=== PATIENT | female | born 1940 | race Caucasian/White ===

== ENCOUNTER → 2017-11-29 15:37 | Outpatient (CLI) | payer MEDICARE, OTHER, SELFPAY ==
--- NOTE | 2017-11-29 15:38 | CT_ITS ---
STUDY: CT CHEST WITH CONTRAST REASON FOR EXAM: Female, 77 years old. History of CLL. Enlarged lymph nodes. RADIATION DOSAGE (If Supplied By Facility): CTDIvol = ( 19.47 ) mGy, DLP = ( 2436.53 ) mGycm TECHNIQUE: Transaxial imaging was performed following intravenous administration of 100CC ml of Isovue 300 contrast material. Individualized dose optimization techniques were used for this CT. COMPARISON: None. FINDINGS: The lungs are normal. There is no demonstrated pleural abnormality. Normal heart and pericardium. There is bilateral thoracic inlet adenopathy. There is moderate bilateral axillary adenopathy. Largest lymph node of the right axilla measures 2.9 cm. Largest lymph node of the left axilla measures 2.8 cm. There is a 1.8 cm right paratracheal lymph node. There are a few relatively small lymph nodes in the left prevascular space. There is a 1.7 cm left cardiophrenic lymph node. Normal enhanced pulmonary arteries. Normal aorta arch and descending thoracic aorta. Normal osseous structures. CT/Chest WITH Contrast IMPRESSION: No acute cardiopulmonary disease. Adenopathy of the bilateral thoracic inlet, in both axilla, and mild mediastinal adenopathy. Electronically Signed: Javan Godoy MD at 23:26 EDT , Service support ,
--- NOTE | 2017-11-29 15:38 | CT_ITS ---
STUDY: CT ABDOMEN AND PELVIS WITH CONTRAST REASON FOR EXAM: Female, 77 years old. CLL. Adenopathy. RADIATION DOSAGE (If Supplied By Facility): CTDIvol = ( 19.47 ) mGy, DLP = ( 2436.53 ) mGycm TECHNIQUE: Transaxial images were obtained from the dome of the diaphragm to the symphysis pubis with oral contrast. 100CC ml of Isovue 300 contrast was administered. Sagittal and coronal images were reconstructed. Individualized dose optimization techniques were used for this CT. COMPARISON: None. FINDINGS: See separate report for CT of the chest. There is retrocrural adenopathy. There is extensive epigastric, gastrohepatic, and peripancreatic adenopathy. There is moderate to marked bilateral retroperitoneal adenopathy. Most of the enlarged lymph nodes maintain a relatively individual contour. The largest is adjacent to the right common iliac artery and measures 4.3 cm. There is moderate mesenteric adenopathy. There is extensive bilateral pelvic sidewall adenopathy. Largest lymph node is along the right pelvic sidewall and measures 4.4 cm. There is moderate bilateral inguinal adenopathy. Normal liver. The gallbladder is contracted. There is moderate splenomegaly. Normal pancreas. Normal bilateral adrenal glands. Normal right kidney. Normal left kidney. Normal visualized stomach. Normal small intestine. Normal colon. The appendix is visualized and appears normal. There is diffuse atherosclerotic calcification of the abdominal aorta, without a demonstrated aneurysm. Normal inferior vena cava. Normal retroperitoneum. Normal urinary bladder. There is atrophy of the uterus. Normal abdominal wall. There are diffuse degenerative changes of the visualized lumbar spine. CT/Abdomen/Pelvis WITH Contrast IMPRESSION: Moderate to severe retroperitoneal, mesenteric, epigastric, pelvic and inguinal adenopathy consistent with the stated history of CLL. Splenomegaly. No acute abnormalities. Electronically Signed: Javan Godoy MD at 23:40 EDT , Service support ,
--- NOTE | 2017-11-29 15:39 | CT_ITS ---
STUDY: CT SOFT TISSUE NECK WITH CONTRAST REASON FOR EXAM: Female, 77 years old. Enlarged lymph nodes. History of CLL. RADIATION DOSAGE (If Supplied By Facility): CTDIvol = ( 19.47 ) mGy, DLP = ( 2436.53 ) mGycm TECHNIQUE: The patient was scanned in a multi-detector CT scanner. High resolution transaxial imaging was performed following intravenous administration of 100CC ml of Isovue 300 contrast material. Sagittal and coronal images were reconstructed. Individualized dose optimization techniques were used for this CT. COMPARISON: None. FINDINGS: Extensive bilateral cervical adenopathy is seen in all lymph node regions consistent with the history of CLL. Findings are especially prominent in both posterior cervical triangles and are very slightly worse on the right when compared to the left. Most of the lymph nodes are individual rather than confluent although a few are matted especially in the posterior right cervical triangle. Largest lymph node is on the right, anterior to the right carotid sheath, and has a greatest dimension of 3.5 cm. Normal parotid glands. Normal bilateral sublingual and submandibular glands and spaces. Normal visualized nasopharynx. Normal retropharyngeal space. Normal perivertebral space. Both pharyngeal tonsils appear large. The visualized tongue, tongue base and oropharynx are normal. There is no abnormal contrast enhancement. Normal epiglottis, bilateral vallecula and hypopharynx. The pre-epiglottic and paraglottic adipose spaces are normal. Normal visualized bilateral piriform sinuses, aryepiglottic folds, vocal cords, and arytenoid-cricoid articulations. Normal subglottic trachea. Normal bilateral lobes of the thyroid gland. Normal visualized pulmonary apices. Bilateral thoracic inlet adenopathy is seen. There is mild mucosal inflammatory disease of the paranasal sinuses consistent with chronic sinusitis. There is multilevel degenerative changes of the cervical spine. CT/Soft Tissue Neck WITH Contrast IMPRESSION: Very extensive bilateral adenopathy in all cervical regions consistent with the history of CLL. Electronically Signed: Javan Godoy MD at 23:20 EDT , Service support ,
[2017-11-29 16:01] LABS: CREATININE FINGERSTICK 0.9 mg/dL (0.55-1.02)
== END ==
PROVIDERS: Family Provider Internal Medicine; PCP Internal Medicine; Visit Provider Internal Medicine Medical Oncology
DX: C91.10 Chronic lymphocytic leukemia of B-cell type not having achieved remission (principal); R59.0 Localized enlarged lymph nodes
CPT/HCPCS: 70491; 71260; 74177; Q9967

== ENCOUNTER → 2017-12-06 08:21 | Outpatient (CLI) | payer MEDICARE, OTHER, SELFPAY ==
--- NOTE | 2017-12-06 09:00 | PET_ITS ---
EXAMINATION: FDG PET CT INDICATIONS: A 77-year-old female with history of chronic lymphocytic leukemia presenting for restaging examination. COMPARISON EXAMINATION: CT of the neck report dated 11/29/17, CT of the chest report dated 11/29/17, CT of the abdomen and pelvis report dated 11/29/17. INDEX LESION SIZE SUV INTERPRETATION Right mid pelvic mesentery, proximal ascending colon nodular 19.1 mm x 19.9 mm (frame 71) 11.[address] of the abdomen and pelvis with intravenous contrast or direct visualization secondary to the quantitative degree of uptake Bilateral axilla, right-left lateral neck 26.9 mm largest (frame 190) 2.4 (max) Fulfills borderline quantitative criteria for viable neoplasm Abdominal retroperitoneum, bilateral hemipelvis, right-left inguinal regions 1.9 Quantitative criteria for viable neoplasm are not fulfilled TECHNIQUE: Following the intravenous administration of 14.8 mCi of F-18 deoxyglucose via the left wrist, multiplanar image acquisitions of the neck, chest, abdomen and pelvis to level of mid thigh, obtained at one hour post radiopharmaceutical administration contemporaneously interpreted with the current CT of the neck, chest, abdomen and pelvis to level of mid thigh, dated 12/06/[address] of the neck report dated 11/29/17, CT of the chest report dated 11/29/17, CT of the abdomen and pelvis report dated 11/29/17 reveal: SERUM GLUCOSE LEVEL: 85 mg/dl. HEIGHT: 64 inches. WEIGHT: 162 lbs. FINDINGS: 1. A distinct intense focus of increased glucose metabolism is manifest in the right upper pelvic mesentery contiguous to the proximal ascending colon, nodular in presentation generating a calculated maximum standard uptake value of 11.1. The maximal axial diameter of the corresponding metabolic abnormality on review of CT of the pelvis dated 12/06/17 is 19.1 mm (transverse) x 19.9 mm (AP). 2. Increased glucose concentration is defined in the bilateral-lateral neck to include levels II B-III, right and left axillary regions generating a calculated maximum standard uptake value of 2.4. The maximal axial diameter of the largest individual hypermetabolic soft tissue density is 26.9 mm (transverse). Multiple soft tissue densities demonstrated fatty hilus formation. 3. Increased glucose metabolism is subtly defined in the mid-lower abdominal retroperitoneum, bilateral hemipelvis and right-left inguinal regions generating a calculated maximum standard uptake value of 1.9. 4. Normal physiologic distribution of the radiopharmaceutical is apparent in the hepatic (3.3) and splenic parenchyma, both renal units, bladder and visualized intestinal tract. There is uniform distribution of the radiopharmaceutical concentration compared on the cerebellar hemispheres and cerebral cortex. Diffuse intestinal tract activity is noted throughout all four quadrants of the abdominal-pelvic retroperitoneum, mesentery consistent with normal physiologic distribution of the radiopharmaceutical. Homogeneous radiopharmaceutical concentration is apparent in the visualized appendicular-axial skeletal structures. The spleen demonstrates a maximal vertical dimension of 12.1 cm (nml < 12.5 cm). Prominent glucose concentration is observed in the descending thoracic, as well as abdominal aorta. Pertinent CT findings are as follows. CHEST: Atherosclerotic calcification is defined in the thoracic aorta without evidence of dilatation, aneurysm formation. Coronary arterial calcification is observed. There are no parenchymal densities-nodules in the right-left hemithorax demonstrating discernible increased glucose metabolism. Multiple soft tissue lymph nodes are demonstrated in the right-left axilla, bilateral-lateral neck demonstrating mild increased glucose concentration as previously described. Fatty hilus formation is noted in multiple corresponding soft tissue densities. ABDOMEN AND PELVIS: Atherosclerotic calcification is defined in the abdominal aorta without evidence of dilatation, aneurysm formation. Pelvic arterial calcification is observed. Abdominal retroperitoneal, bilateral hemipelvic and right-left inguinal soft tissue densities demonstrate mild non-quantitatively significant increased glucose metabolism as previously described SKELETAL: Degenerative changes defined in the cervical, thoracic and lumbar spine demonstrate no evidence for glucose hypermetabolism. PET/PET/CT Tumor Base -Thigh Subs IMPRESSION: 1. Increased glucose metabolism manifest in the right mid pelvic mesentery contiguous to the proximal ascending colon, nodular in presentation demonstrated no corresponding anatomic changes on review of CT of the abdomen and pelvis report dated 11/29/17. Repeat CT of the abdomen and pelvis with oral and intravenous contrast or direct visualization may be indicated secondary to the quantitative degree of uptake and nodular presentation. (Autumn et al, Journal of Nuclear Medicine, 30:F371, 2003). 2. Facilitated glucose concentration noted in the right-left lateral neck, bilateral axillary regions fulfills borderline quantitative criteria for viable neoplasm with single-point technique. 3. Enhanced glucose concentration defined in the abdominal retroperitoneum, bilateral hemipelvis and inguinal regions does not fulfill quantitative criteria for viable neoplasm. 4. Prominent glucose concentration observed in the descending thoracic, as well as abdominal aorta is commensurate with activated leukocytes associated with atherosclerotic plaque formation. (Krunal voss al, Clinical Nuclear Medicine 29:93, 2004). 5. Homogenous increased glucose metabolism manifest in the visualized appendicular-axial skeletal structures, in the absence of chemotherapeutic intervention and marrow stimulation, is consistent with the pattern associated with hyperplasia of the hematopoietic marrow. (Glenn, AJR 180:669, 2003). Electronic Signature Iain Bhandari D.O. Electronically Signed: Iain Bhandari DO at 23:52 EDT Tel , Service support ,
== END ==
PROVIDERS: Family Provider Internal Medicine; PCP Internal Medicine; Visit Provider Internal Medicine Medical Oncology
DX: C91.10 Chronic lymphocytic leukemia of B-cell type not having achieved remission (principal); R59.1 Generalized enlarged lymph nodes
CPT/HCPCS: 78815; A9552; A4216

== ENCOUNTER 2018-02-08 04:18 | Emergency (ER) | payer MEDICARE, OTHER, SELFPAY ==
[2018-02-08 04:19] VITALS: BP 177/67; PULSE 85; RESP 16; TEMP 37.1; O2SAT 95; BMI 28.6
--- NOTE | 2018-02-08 04:28 | RAD_ITS ---
STUDY: X-RAY RIGHT FOOT, FIRST TOE REASON FOR EXAM: Female, 77 years old. Trauma TECHNIQUE: 3 view(s) of the toe were obtained. COMPARISON: None. FINDINGS: Normal visualized metatarsus. Normal metatarsophalangeal (M.T.P) joint. Normal interphalangeal joints. Normal phalanges and interphalangeal joints. There is soft tissue swelling of the first digit. RAD/Toe(s) Min 2 Views IMPRESSION: There is NO fracture or malalignment. There is soft tissue swelling of the first digit. Electronically Signed: Franky Singh MD at 5:16 EDT , Service support ,
--- NOTE | 2018-02-08 04:33 | ED.DCSUM_ITS ---
- ER Visit Summary Date of Service: 02/08/18 Chief Complaint: Right great toe pain and swelling. History of Present Illness: The patient is a 77 F history of CLL. On chemotherapy. He states on Wednesday she noticed swelling and some discomfort in her right great toe. There is now bruising. She denies any fall or trauma. She is not on any blood thinners. Physical Examination: Well appearing older female. Vital signs are stable afebrile. H EENT exam is traumatic. Neck nontender. Lungs clear to auscultation bilaterally. Heart regular rate and rhythm no murmur. Abdomen soft nontender. She is moving all 4 extremities. They are neurovascularly intact. Her right great toenail is irregular. It appears to have had some trauma and is knocked out of place. There is a fungal infection of the nail and underneath. There is bruising of the proximal end of the nail and skin. And mild swelling and tenderness. No gross bony deformity. Other toes and foot is nontender and unremarkable. Normal DP pulse. Foot is neurovascular intact. Test Results: Right great toe x-ray chronic changes no acute fracture. Emergency Department Course and Treatment: Procedure note: Let was applied to the MTP of the right great toe. Digital block was performed using lidocaine. Once proper anesthetic was obtained a right great toenail was removed. It was very irregular and had significant fungal infection. Below the nail as soon there been a lot of microtrauma she had a large dime to quarter sized blood blister with tissue deficit. Area will be cleaned and dressed. She will be started on antibiotics for an ingrown toenail with infection. Treatment Plan: Keflex 500 4 times daily for 1 week. Call and follow-up with Dr. Davison of podiatry as soon as possible. Disposition: Discharge Impression: Acute right great toenail ingrown and infected Right great toe digital block by ER Right great toenail removed by ER History of CLL on chemotherapy This note was generated with [employer] dictation software. It may contain incorrect words, spelling, and punctuation that were not noted in review of the chart prior to signing ED Disposition - Plan for ED Patient: Chief Complaint: Wound Referrals: Gail Lopes MD [Primary Care Provider] -
[2018-02-08] MEDS: Lidocaine/Epi/Tetracaine 50 ML 1 APPLIC TOPICAL (05:15)
--- NOTE | 2018-02-08 05:42 | ED.DEP ---
ED Disposition - Plan for ED Patient: Disposition: Home or Assisted Living Chief Complaint: Wound Instructions: ED Ingrown Toenail Excised Prescriptions: Cephalexin [Keflex] 500 mg PO Q6 #30 cap Referrals: Gail Lopes MD [Primary Care Provider] - As Needed Davin Davison DPM [STAFF PHYSICIAN] - As soon as possible Additional Instructions: Keep great toe clean. Warm soaks or Epsom salts. Apply antibiotic the wound. Ice and elevate to decrease swelling. Keflex 1 pill 4 times a day till gone antibiotic for ingrown infection. Call and follow-up with Dr. Jose Alejandro Davison a local justice of the peace for further care of your right great toe.
--- NOTE | 2018-02-08 05:45 | DCINST.ED_ITS ---
ED Disposition - Plan for ED Patient: Disposition: Home or Assisted Living Chief Complaint: Wound Instructions: ED Ingrown Toenail Excised Prescriptions: Cephalexin [Keflex] 500 mg PO Q6 #30 cap Referrals: Gail Lopes MD [Primary Care Provider] - As Needed Davin Davison DPM [STAFF PHYSICIAN] - As soon as possible Additional Instructions: Keep great toe clean. Warm soaks or Epsom salts. Apply antibiotic the wound. Ice and elevate to decrease swelling. Keflex 1 pill 4 times a day till gone antibiotic for ingrown infection. Call and follow-up with Dr. Jose Alejandro Davison a local ward helper for further care of your right great toe.
[2018-02-08 05:59] VITALS: BP 155/75; PULSE 71; RESP 16; O2SAT 95
== END 2018-02-08 06:02 | disposition home or self-care (01) ==
PROVIDERS: Emergency Provider Emergency Medicine; Family Provider Internal Medicine; PCP Internal Medicine
DX: L60.0 Ingrowing nail (principal); C91.10 Chronic lymphocytic leukemia of B-cell type not having achieved remission; B35.1 Tinea unguium; Z79.899 Other long term (current) drug therapy
CPT/HCPCS: 11750; 73660; 99283

== ENCOUNTER 2019-09-13 18:56 | Emergency (ER) | payer MEDICARE, OTHER, SELFPAY ==
[2019-09-13 18:56] VITALS: BP 180/84; PULSE 84; RESP 16; TEMP 36.5; O2SAT 97; BMI 29.2
--- NOTE | 2019-09-13 19:13 | CT_ITS ---
STUDY: CT BRAIN WITHOUT CONTRAST REASON FOR EXAM: Female, 78 years old. HTN AND NOT FEELING WELL SINCE 10AM, TINGLING OVER FACE AND BOTH ARMS, HX CLL, BASAL CELL CA, SINUS SX RADIATION DOSAGE (If Supplied By Facility): CTDIvol = ( 44.99 ) mGy, DLP = ( 796.11 ) mGycm TECHNIQUE: Transaxial CT imaging of the brain was performed without administration of intravenous contrast material. Individualized dose optimization techniques were used for this CT. COMPARISON: No relevant priors. FINDINGS: Normal soft tissue structures. Normal calvarium. There is mild cerebral atrophy with widening of the extra-axial spaces and ventricular dilatation. There are areas of decreased attenuation within the white matter tracts of the supratentorial brain, consistent with microvascular disease changes. Normal basal ganglia and thalami. Normal brainstem. There is mild cerebellar atrophy. There is no intracranial hemorrhage. There are no findings of an acute ischemic infarction. Normal visualized paranasal sinuses. CT/Brain/Head without Contrast IMPRESSION: Chronic involutional changes of the brain. Electronically Signed: Luke Bang DO at 20:02 EST Tel , Service support ,
--- NOTE | 2019-09-13 19:14 | EKG12_ITS ---
Test Reason : GEN ILL Blood Pressure : / mmHG Vent. Rate : 081 BPM Atrial Rate : 081 BPM P-R Int : 164 ms QRS Dur : 086 ms QT Int : 366 ms P-R-T Axes : 050 038 032 degrees QTc Int : 425 ms Normal sinus rhythm Nonspecific ST abnormality Abnormal ECG Confirmed by EZRA SALAS, GEORGE ([id number]), sound editor ANDREWS ANN ([id number]) on 09/18/2019 10:34:26 AM Referred By: VIJI Confirmed By:BE MUNGUIA MD
--- NOTE | 2019-09-13 19:17 | ED.DCSUM_ITS ---
- ER Visit Summary Date of Service: 09/13/19 Chief Complaint: Hypertension and paresthesias History of Present Illness: The patient is a 78 F [place] with elevated blood pressure and facial paresthesias that began today. Patient states she feels like she has tingling over her face and both arms. Patient states this has been constant since this morning. Patient states it has been waxing and waning throughout the day. Patient denies any chest pain. Patient denies any shortness of breath. Patient denies any cough. Patient denies any fevers or chills. Patient denies any visual changes or headache. Patient has a history of CLL and is on a medication that may increase her blood pressure. Patient s thee she has been on this for approximately a year and a half. Physical Examination: Vital signs are stable except for an elevated blood pressure of 180/84. Patient is afebrile. Patient is in no acute distress. Oral mucosa is pink and moist. Neck is supple. Trachea is midline. There is no JVD noted. Heart was regular rate and rhythm. Lungs are clear and equal bilaterally. Abdomen is soft. Bowel sounds are normal. There is no tenderness. There is no rebound or guarding noted. Skin is warm dry. Cranial nerves II through XII are intact. There are no focal motor or sensory deficits noted. Extremities are intact. There is no calf tenderness or edema. Test Results: EKG shows a normal sinus rhythm with a rate of 81. There are no acute ST or T wave changes. This was unchanged compared to previous EKG dated 07/14/2016. CBC shows a leukocytosis of 44.5. This is consistent with prior results. Basic metabolic profile was essentially within normal limits with a slightly elevated BUN of 22 and a slightly elevated creatinine of 1.16. Urinalysis was within normal limits. Troponin was normal. PA and lateral chest x-ray was obtained. There is no acute cardiopulmonary process. CT scan of the brain was obtained. There is no acute intracranial abnormality. These were interpreted by the radiologist and reviewed by myself. Emergency Department Course and Treatment: Patient was feeling better on reevaluation. Patient's blood pressure improved to 154/73. Patient was still having some tingling in her face but it was improving. Patient was instructed to follow-up with her primary care physician in 3 to 5 days for further management of her blood pressure. Patient was instructed to keep a log of her blood pressures. Patient understood and was agreeable with the plan. All questions were answered. Disposition: Discharge home Impression: 1. Hypertension This note was generated with [employer] dictation software. It may contain incorrect words, spelling, and punctuation that were not noted in review of the chart prior to signing ED Disposition - Plan for ED Patient: Disposition: Home or Assisted Living Diagnosis: Hypertension Instructions: HYPERTENSION, Established, Out of Control Referrals: Gail Lopes MD [Primary Care Provider] - 3-5 Days
[2019-09-13 19:23] VITALS: BP 154/73; PULSE 75; RESP 14; O2SAT 96
[2019-09-13 19:28] LABS: Absolute Lymphocyte Count 37.65 X10^3/uL (0.83-4.51); Absolute Neutrophil Count 5.7 X10^3/uL (2.0-7.7); Basophil# 0.05 X10^3/uL; Basophil% 0.1 % (0-1); Eosinophil# 0.14 X10^3/uL; Eosinophils% 0.3 % (0-5); Hematocrit 42.4 % (37-47); Hemoglobin 13.2 g/dL (12.0-15.0); Lymphocyte # 37.65 X10^3/ul (4.0); Lymphocyte % 84.7 % (19-41); Mean Corp Hgb Conc 31.1 g/dL (32-36); Mean Corpuscular Hgb 28.9 pg (27.0-32.0); Mean Platelet Vol. 12.8 fl (6.2-12.0); Monocyte# 0.87 X10^3/uL; NRBC Flagged by Analyzer 0 % (0-5); Neutrophil # 5.66 X10^3/uL (2.7-7.7); Neutrophil % 12.7 % (47-70); POSITIVE COUNT YES; POSITIVE DIFFERENTIAL YES; POSITIVE MORPHOLOGY YES; Platelet Count 176 K/mm3 (150-450); RBC Distribution Width CV 15.1 % (11.6-14.6); RBC Distribution Width SD 51.4 fl (35.1-43.9); Red Blood Count 4.56 M/mm3 (4.2-5.4); White Blood Count 44.5 K/mm3 (4.4-11.0)
[2019-09-13 19:37] LABS: Differential Indicated SCAN CRITERIA MET
[2019-09-13 19:37] LABS: Bacteria 0 SEEN /hpf (None Seen); Mucous, Urine 0 SEEN /hpf (<or=2+); Squamous Epithelial Cells - UA 0 SEEN /hpf (5-10); White Blood Cells 0 SEEN /hpf (0-5)
[2019-09-13 19:38] LABS: Color, Urine Straw (Yellow); Glucose, Dipstick Normal (Normal); Ketone-Dipstick Negative (Negative); Leukocyte Esterase-Dipstick Negative /ul (Negative); Nitrite-Dipstick Negative (Negative); Occult Blood-Urine 150 /ul (Negative); Protein-Dipstick Negative (Negative); Urine Bilirubin Dipstick Negative (Negative); Urine Clarity Clear (Clear); Urine Urobilinogen Normal (Normal)
--- NOTE | 2019-09-13 19:38 | RAD_ITS ---
STUDY: X-RAY CHEST REASON FOR EXAM: Female, 78 years old. hypertension TECHNIQUE: PA and lateral views of the chest. COMPARISON: 07/13/16 FINDINGS: The lungs are clear and expanded. There is no demonstrated pleural abnormality. Normal size heart. Normal mediastinum and surjit. Normal visualized pulmonary arteries. Normal visualized aortic arch and descending thoracic aorta. Normal visualized thoracic spine. Normal visualized ribs, clavicles, and shoulders. There is no demonstrated abnormality of the visualized soft tissue structures of the upper abdomen. RAD/Chest PA and Lateral IMPRESSION: Normal x-ray examination of the chest. Electronically Signed: Luke Bang DO at 20:03 EST Tel , Service support ,
[2019-09-13 19:41] LABS: ALB/GLOB Ratio 1.7 RATIO (0.9-2.4); AST(SGOT) 22 U/L (15-37); Alanine Aminotransfer ALT/SGPT 31 U/L (13-56); Alkaline Phosphatase 101 U/L (45-117); Anion Gap 3 (5-15); BUN 22 mg/dL (7-18); Calcium,Total 9.2 mg/dL (8.5-10.1); Chloride 109 mmol/L (98-107); Creatinine, Serum 1.16 mg/dL (0.55-1.02); EST Glomerular Filtration Rate 48 mL/min (>60); Est Glom Filt Rate - Afr Amer 58 mL/min (>60); Estimated Creatinine Clearance 35.63 ml/min; Globulin 2.4 g/dL (2.2-4.2); Glucose 106 mg/dL (74-106); Protein, Total 6.4 g/dL (6.4-8.2); Sodium Level 141 mmol/L (136-145)
[2019-09-13 19:44] LABS: Red Blood Cells-Urine 0-5 SEEN /hpf (0-5)
[2019-09-13 20:14] LABS: Differential Comment SCANNED; Platelet Estimate ADEQUATE (ADEQ); Red Cell Morphology NORM C+C NORMAL (NORM C&C); Smudge Cells 1+
[2019-09-13 21:10] VITALS: BP 157/73; BP 157/79; PULSE 75; RESP 14; O2SAT 97; O2SAT 98
[2019-09-14 11:47] LABS: Pathologist Review Reviewed
== END 2019-09-13 21:14 | disposition home or self-care (01) ==
PROVIDERS: Emergency Provider Emergency Medicine; PCP Internal Medicine
DX: R20.2 Paresthesia of skin (principal); I10 Essential (primary) hypertension; C91.10 Chronic lymphocytic leukemia of B-cell type not having achieved remission; Z79.899 Other long term (current) drug therapy
CPT/HCPCS: 70450; 71046; 80053; 81001; 84484; 85025; 93005; 99284

== ENCOUNTER 2020-02-28 09:33 | Emergency (ER) | payer MEDICARE, OTHER, SELFPAY ==
[2020-01-24 14:26] VITALS: BMI 28.5
[2020-02-28 09:36] VITALS: BP 157/85; PULSE 81; RESP 18; TEMP 36.6; O2SAT 98; BMI 28.3
--- NOTE | 2020-02-28 09:45 | EKG12_ITS ---
Test Reason : ABDOMINAL PAIN Blood Pressure : / mmHG Vent. Rate : 075 BPM Atrial Rate : 075 BPM P-R Int : 158 ms QRS Dur : 090 ms QT Int : 378 ms P-R-T Axes : 062 047 039 degrees QTc Int : 422 ms Normal sinus rhythm Normal ECG Confirmed by BRENT BARBA ([id number]), development editor ANDREWS ANN ([id number]) on 03/04/2020 11:51:31 AM Referred By: Confirmed By:BRENT BARBA
--- NOTE | 2020-02-28 09:49 | ED.VISSUMM ---
- ER Visit Summary Date of Service: 02/28/20 Chief Complaint: Abdominal pain History of Present Illness: The patient is a 79 F presenting with abdominal pain. Patient states this started this morning after drinking coffee. She felt well yesterday. She complains of epigastric abdominal pain. She denies nausea, vomiting. Denies diarrhea or constipation. Denies urinary complaints. Denies fever. Denies chest pain or shortness of breath. No sick contacts. Physical Examination: Vitals are stable. Patient is afebrile. Alert no acute distress. HEENT exam is unremarkable. Neck is supple. Lungs are clear and equal bilaterally. Heart is regular rate and rhythm. Abdomen is soft epigastric tenderness with no guarding or rebound Extremities are unremarkable. Skin is warm and dry. No focal neurologic deficit. Remainder of exam is unremarkable. Emergency Department Course and Treatment: Patient was given a GI cocktail. EKG is sinus rhythm rate of 75 with no acute ischemic changes. CBC shows a white count of 45.6. She has a history of CLL and this is her baseline. Chemistries show BUN 26, creatinine 1.09. Total bili 1.2, AST 72. Lipase is normal. Troponin is negative. Urinalysis shows 10-25 white blood cells, 5-10 red blood cells. Urine culture was sent. Right upper quadrant ultrasound shows no suspicious sonographic findings, simple right renal cyst needs no radiographic follow up. Patient feels improved on reevaluation. She was given crackers. She states her pain then returned. She is requesting additional GI cocktail. This was ordered. CT abdomen pelvis was ordered and shows since the previous study, there has been nonspecific intra and extrahepatic biliary dilatation. No demonstrated stones are noted, no CT evidence of acute cholecystitis. Findings suggest the possibility of a stricture or choledochal stone that is not visualized. Small amount of free fluid around the periphery of the spleen. Stable bilateral renal cysts, no specific follow-up needed. Scattered borderline enlarged mesenteric and retroperitoneal lymph nodes, subcentimeter pelvic lymph nodes have decreased in size since the previous study. Uterus is still present, the endometrium cannot be accurately evaluated with CT. Degenerative bony changes. Discussed with Dr. Krishnan and hospitalist. Recommend MRCP. This was ordered and is pending at this time. Patient is resting comfortably on reevaluation. Disposition will be pending MRCP results Disposition: pending Impression: Abdominal pain This note was generated with Dragon dictation software. It may contain incorrect words, spelling, and punctuation that were not noted in review of the chart prior to signing ED Disposition - Plan for ED Patient: Referrals: Gail Lopes MD [Primary Care Provider] -
[2020-02-28 10:07] LABS: Absolute Lymphocyte Count 36.44 X10^3/uL (0.83-4.51); Absolute Neutrophil Count 7.9 X10^3/uL (2.0-7.7); Basophil# 0.06 X10^3/uL; Basophil% 0.1 % (0-1); Eosinophil# 0.11 X10^3/uL; Eosinophils% 0.2 % (0-5); Hematocrit 40.1 % (37-47); Hemoglobin 12.6 g/dL (12.0-15.0); Lymphocyte # 36.44 X10^3/ul (4.0); Lymphocyte % 79.9 % (19-41); Mean Corp Hgb Conc 31.4 g/dL (32-36); Mean Corpuscular Hgb 29.8 pg (27.0-32.0); Mean Corpuscular Volume 94.8 fL (81-99); Mean Platelet Vol. 12.5 fl (6.2-12.0); Monocyte# 1.01 X10^3/uL; Monocyte% 2.2 % (0-10); NRBC Flagged by Analyzer 0 % (0-5); Neutrophil # 7.87 X10^3/uL (2.7-7.7); Neutrophil % 17.3 % (47-70); POSITIVE COUNT YES; POSITIVE DIFFERENTIAL YES; POSITIVE MORPHOLOGY YES; Platelet Count 178 K/mm3 (150-450); RBC Distribution Width CV 14.9 % (11.6-14.6); RBC Distribution Width SD 51.8 fl (35.1-43.9); Red Blood Count 4.23 M/mm3 (4.2-5.4); White Blood Count 45.6 K/mm3 (4.4-11.0)
[2020-02-28] MEDS: Mag Hydrox/Al Hydrox/Simeth 30 ML UDC PO ×2 (10:14→13:32)
[2020-02-28] MEDS: 0.9% Normal Saline 1,000 ML 150 ML IV (10:14)
[2020-02-28 10:19] LABS: Mucous, Urine 0 SEEN /hpf (<or=2+)
[2020-02-28 10:20] LABS: Color, Urine Yellow (Yellow); Glucose, Dipstick Normal (Normal); Ketone-Dipstick Negative (Negative); Leukocyte Esterase-Dipstick 100 /ul (Negative); Nitrite-Dipstick Negative (Negative); Occult Blood-Urine 250 /ul (Negative); Protein-Dipstick 15 mg/dl (Negative); Urine Bilirubin Dipstick Negative (Negative); Urine Clarity Sl. Cloudy (Clear); Urine Urobilinogen Normal (Normal)
[2020-02-28 10:23] LABS: ALB/GLOB Ratio 1.6 RATIO (0.9-2.4); AST(SGOT) 72 U/L (15-37); Alanine Aminotransfer ALT/SGPT 44 U/L (13-56); Albumin, Serum 3.7 g/dL (3.2-5.0); Alkaline Phosphatase 102 U/L (45-117); Anion Gap 1 (5-15); BUN 26 mg/dL (7-18); BUN/Creat Ratio 23.9 RATIO (10-20); Calcium,Total 8.6 mg/dL (8.5-10.1); Chloride 106 mmol/L (98-107); Creatinine, Serum 1.09 mg/dL (0.55-1.02); EST Glomerular Filtration Rate 52 mL/min (>60); Est Glom Filt Rate - Afr Amer 63 mL/min (>60); Estimated Creatinine Clearance 37.32 ml/min; Globulin 2.3 g/dL (2.2-4.2); Glucose 91 mg/dL (74-106); Lipase 137 U/L (73-393); Sodium Level 138 mmol/L (136-145)
[2020-02-28 10:29] LABS: Squamous Epithelial Cells - UA 0-5 SEEN /hpf (5-10); White Blood Cells 10-25 SEEN /hpf (0-5)
[2020-02-28 10:30] LABS: Bacteria RARE /hpf (None Seen); Red Blood Cells-Urine 5-10 SEEN /hpf (0-5)
--- NOTE | 2020-02-28 10:31 | US_ITS ---
STUDY: ABDOMINAL ULTRASOUND - RIGHT UPPER QUADRANT REASON FOR VISIT: Female, 79 years old Abd PAIN TECHNIQUE: Ultrasound evaluation of the right upper quadrant was performed with real-time and static marshall-scale imaging. TECHNICAL QUALITY: Adequate. COMPARISON: None. FINDINGS: Liver: The liver measures 16 cm. There is normal echogenicity of the liver. The bile ducts are within normal limits. There is hepatic color flow. The direction of portal flow is hepatopetal. There is no demonstrated mass lesion. Gallbladder: Normal distended gallbladder. The gallbladder wall measures 2 mm. There is a negative sonographic Hernandez''s sign. There is no pericholecystic fluid. There are no gallstones. Common Bile Duct (C.B.D.): The common bile duct measures 5 mm. Pancreas: Normal size of the head, body and tail of the pancreas. There is normal echogenicity of the pancreas. There is no demonstrated pancreatic mass or cyst. Right Kidney: Normal size of the right kidney. The right kidney measures 10.2 x 4.6 x 3.8 cm. Normal renal cortex. The right cortex measures 1.3 cm. There is a simple 1.1 cm cyst. There is no right hydronephrosis. US/Gallbladder IMPRESSION: No suspicious sonographic findings, simple right renal cyst needs no radiographic follow up Electronically Signed: Fausto Lucero MD at 11:29 EDT , Service support ,
[2020-02-28 10:32] LABS: Differential Indicated SCAN CRITERIA MET
[2020-02-28 10:38] LABS: Differential Comment SCANNED
--- NOTE | 2020-02-28 12:38 | CT_ITS ---
STUDY: CT ABDOMEN AND PELVIS WITHOUT CONTRAST REASON FOR EXAM: Female, 79 years old. ABD PAIN THIS AM. Hx of CLL and basal cell cancer. HTN-rx controlled. RADIATION DOSAGE (If Supplied By Facility): CTDIvol = ( 19.00 ) mGy, DLP = ( 1755.46 ) mGycm TECHNIQUE: Transaxial images were obtained from the dome of the diaphragm to the symphysis pubis without oral contrast, and without intravenous contrast. Sagittal and coronal images were reconstructed. 3-D images were reconstructed. Individualized dose optimization techniques were used for this CT. COMPARISON: 11/29/2017 FINDINGS: There are chronic interstitial fibrotic changes of the lung bases. The visualized portions of the heart are within normal limits. Liver itself is free of any suspicious solid lesion. However, since the previous study, there is a significant increase in the amount of intra and extrahepatic biliary dilatation to the level of the pancreatic head. No discrete pancreatic lesion is noted findings suggest the possibility of a stricture or choledochal stone. The gallbladder does not show wall thickening or pericholecystic fluid. Spleen is unremarkable, there is a small amount of fluid around the periphery of the spleen. Normal pancreas. Normal bilateral adrenal glands. No obstructive uropathy, stable bilateral renal cysts. Normal visualized stomach. Normal small intestine. Normal colon. There is non-visualization of the appendix. There is diffuse atherosclerotic calcification of the abdominal aorta, without a demonstrated aneurysm. Normal inferior vena cava. Scattered borderline enlarged mesenteric and retroperitoneal lymph nodes measuring up to 1 cm in short axis dimension. There are subcentimeter pelvic lymph nodes largest on axial image 75 measures 8 mm in short axis dimension. Normal urinary bladder. Uterus is still present, the endometrium cannot be accurately evaluated with CT. No suspicious cystic mass or free fluid. Normal abdominal wall. There are diffuse degenerative changes of the visualized lumbar spine, and pelvis. CT/Abdomen/Pelvis W IV Cont ONLY IMPRESSION: Since the previous study, there is been nonspecific intra and extrahepatic biliary dilatation. No demonstrated stones are noted, no CT evidence of acute cholecystitis. Findings suggest the possibility of a stricture or choledochal stone that is not visualized. Small amount of free fluid around the periphery of the spleen Stable bilateral renal cysts, no specific follow-up needed Scattered borderline enlarged mesenteric and retroperitoneal lymph nodes, subcentimeter pelvic lymph nodes have decreased in size since the previous study Uterus is still present, the endometrium cannot be accurately evaluated with CT Degenerative bony changes Electronically Signed: Fausto Lucero MD at 14:15 EDT , Service support ,
--- NOTE | 2020-02-28 15:35 | MRI_ITS ---
STUDY: MR MRCP WITHOUT CONTRAST REASON FOR EXAM: Female, [address] TECHNIQUE: Standard MRCP technique was utilized. COMPARISON: CT of the abdomen and pelvis dated February 28, 2020 and ultrasound dated February 28, 2020. PET/CT dated December 06, 2017 FINDINGS: Gall Bladder: The gallbladder is distended. There are no demonstrated fixed intraluminal filling defect. Cystic duct: Normal with no demonstrated fixed filling defect. Intrahepatic ducts: There is intrahepatic ductal dilatation. Common hepatic duct: There is dilatation of the common hepatic duct Common bile duct: Normal with no demonstrated fixed filling defect, dilation or stricture. Pancreatic duct: Normal with no demonstrated fixed filling defect, dilation or stricture. There are bilateral renal cysts. MRI/MRCP Abdomen without Contrast IMPRESSION: Gallbladder dilatation associated with intrahepatic and common hepatic ductal dilatation with no associated choledocholithiasis, cannot include an underlying neoplastic process as a cholangiocarcinoma. Bilateral renal cysts. Electronically Signed: Iman Cruz MD at 18:26 EDT Tel , Service support ,
[2020-02-28 16:33] VITALS: BP 145/57; PULSE 68; RESP 18
[2020-02-28 18:04] VITALS: RESP 14
[2020-02-28 19:50] VITALS: BP 154/56; PULSE 68; RESP 16; TEMP 37.2; O2SAT 97
--- NOTE | 2020-02-28 20:16 | NURSING ---
ACCEPTED TO [facility] BY DR. BAIRON LONG SURGEON WILL CALL BACK WITH BED BUT THERE WILL BE A WAIT TIME MAYBE EVEN NOT UNTIL TOMORROW MORNING, PATIENT IS AWARE
[2020-02-28 21:21] VITALS: RESP 16
[2020-02-28 23:35] VITALS: BP 132/53; PULSE 72; RESP 16; TEMP 37.2; O2SAT 95
[2020-02-29 12:09] LABS: Pathologist Review Reviewed
== END 2020-02-29 00:15 | disposition short-term general hospital (02) ==
LOC: ED 10:35
PROVIDERS: Student in an Organized Health Care Education/Training Program; Emergency Provider Emergency Medicine; PCP Internal Medicine
DX: R10.13 Epigastric pain (principal)
CPT/HCPCS: 74177; 74181; 76705; 80053; 81001; 83690; 84484; 85025; 87086; 87088; 87186; 87635; 93005; 96360; 96361; 99285; G2023; J7030; Q9967; A4216; J2405; U0003

== ENCOUNTER 2020-07-14 22:56 | Emergency (ER) | payer MEDICARE, OTHER, SELFPAY ==
[2020-07-14 22:56] VITALS: BP 177/87; PULSE 79; RESP 18; TEMP 35.9; O2SAT 98; BMI 29.5
--- NOTE | 2020-07-14 23:11 | EKG12_ITS ---
Test Reason : DYSRHYTHMIA Blood Pressure : / mmHG Vent. Rate : 069 BPM Atrial Rate : 069 BPM P-R Int : 164 ms QRS Dur : 088 ms QT Int : 386 ms P-R-T Axes : 060 041 041 degrees QTc Int : 413 ms Normal sinus rhythm Normal ECG Confirmed by JANIYA SALAS, MOLLY ([id number]), science editor MELVIN GOODWIN ([id number]) on 07/17/2020 12:47:35 PM Referred By: CL Confirmed By:MOLLY DENSON MD
--- NOTE | 2020-07-14 23:11 | ED.VIS.GEN ---
History of Present Illness Chief Complaint: Hypertension Informant: Patient Narrative: 79-year-old female with past medical history of hypertension and CLL presents with concern for elevated blood pressure. Patient states that she was feeling unwell this evening having flushing in her face and checked her blood pressure noticed it was elevated. Patient was seen by her primary care physician 4 days ago and her losartan had been titrated from 25 to 50 mg/day. Patient spoke with a nurse at the office of her primary care who advised her to take her medication at 5:00 and then repeat her blood pressures. Patient states that the blood pressure did come down for a period of time but then it is begun to go back up and she began having the flushing again. She denies any headache, vision change, nausea, vomiting, chest pain, shortness of breath, lightheadedness, dizziness. Past Medical History - Allergies and Home Meds Allergies/Adverse Reactions: Allergies meloxicam Adverse Reaction (Intermediate, Verified 04/17/20 13:18) Swelling feet Primary Care Physician: Gail Lopes MD [Primary Care Provider] - Prior records reviewed: Yes Past Medical History: - - Hypertension and CLL Surgical History: excision for basal cell carcinoma Lives: Alone Smoking Status: Never smoker Alcohol: None Drugs: None Review of Systems General: Denies: Chills, Fever, Sweats Eyes: Denies: Visual changes - bilaterally, Diplopia ENT: Denies: Rhinorrhea, Sore throat Cardiovascular: Denies: Chest pain, Palpitations Respiratory: Denies: Dyspnea, Cough, Dyspnea on exertion Gastrointestinal: Denies: Abdominal pain, Nausea, Vomiting, Diarrhea, Melena, Hematochezia Genitourinary: Denies: Dysuria, Hematuria, Frequency Musculoskeletal: Denies: Back pain, Extremity Pain Skin: Denies: Rash, Wounds Neurological: Denies: Headache, Weakness, Numbness Physical Exam Vital Signs/Narrative: Vital Signs Temp Pulse Resp BP Pulse Ox 07/14/20 22:56 96.7 F L 79 18 177/87 H 98 Inital Vital Signs reviewed: Yes General: Well nourished, Well developed, No Acute Distress Head: Normocephalic, Atraumatic Eyes: Perrl, EOMI ENT: Moist mucous membranes, No rhinorrhea Neck: Supple, Nontender Cardiovascular: Regular rate, Regular rhythm, No murmurs Respiratory: No distress, CTA bilaterally, Chest nontender Abdomen: Soft, Nontender, Nondistended, Normal bowel sounds Back: Nontender, Normal Inspection Extremities: Nontender, No edema Skin: Normal color, No rash Neurological: Alert, Oriented x3, Cranial nerves II-XII grossly intact, Normal Strength, Normal Sensation Psychological: Normal affect, Normal Mood Diagnostic/Tx/Re-eval Laboratory Data 07/14/20 07/14/20 23:20 23:20 WBC 40.5 H* RBC 4.32 Hgb 12.6 Hct 39.9 MCV 92.4 MCH 29.2 MCHC 31.6 L RDW Std Deviation 49.4 H RDW Coeff of Yolie 14.6 Plt Count 173 MPV 12.6 H Immature Gran % (Auto) 0.600 Neut % (Auto) 14.0 L Lymph % (Auto) 82.7 H [place] % (Auto) 2.4 Eos % (Auto) 0.2 Baso % (Auto) 0.1 Absolute Neuts (auto) 5.6 Absolute Lymphs (auto) 33.48 H Nucleated RBC % 0 [address] Review May foll Sodium 141 Potassium 4.0 Chloride 106 Carbon Dioxide 29.0 Anion Gap 6 BUN 24 H Creatinine 1.01 Estim Creat Clear Calc 40.28 Est GFR (MDRD) Af Amer 68 Est GFR (MDRD) Non-Af 56 L BUN/Creatinine Ratio 23.8 H Glucose 100 Calcium 8.9 Troponin I < 0.015 - Rhythm Strip Rhythm Strip: Sinus Rhythm Rate: 69 Ectopy: None - EKG Initial EKG Interpretation: Sinus Rhythm - Normal sinus rhythm at 69 bpm. IL interval 164 ms. QTC of 413 ms. No evidence of ST elevation or depression at this time. - Medical Decision Making Appears well and nontoxic. EKG nonischemic. Lab work within normal limits other than slightly elevated BUN. Troponin negative. Patient's blood pressure spontaneously reduced to 125 systolic on my reevaluation at 00 15. Patient has appointment with her primary care provider tomorrow morning. I did advise her to return to the emergency department at any time between now and then if she is feeling unwell. Patient is agreeable and discharged home in stable condition. Impression: 1. Hypertension exacerbation ED Disposition - Plan for ED Patient: Disposition: Home or Assisted Living Instructions: ED Hypertension, Established Referrals: Gail Lopes MD [Primary Care Provider] - Keep Kin[facility] appointment
[2020-07-14 23:14] VITALS: BP 165/70; PULSE 70; RESP 16; O2SAT 96
[2020-07-14 23:43] LABS: Absolute Lymphocyte Count 33.48 X10^3/uL (0.83-4.51); Absolute Neutrophil Count 5.6 X10^3/uL (2.0-7.7); Basophil# 0.04 X10^3/uL; Basophil% 0.1 % (0-1); Eosinophils% 0.2 % (0-5); Hematocrit 39.9 % (37-47); Hemoglobin 12.6 g/dL (12.0-15.0); Lymphocyte # 33.48 X10^3/ul (4.0); Lymphocyte % 82.7 % (19-41); Mean Corp Hgb Conc 31.6 g/dL (32-36); Mean Corpuscular Hgb 29.2 pg (27.0-32.0); Mean Corpuscular Volume 92.4 fL (81-99); Mean Platelet Vol. 12.6 fl (6.2-12.0); Monocyte# 0.96 X10^3/uL; Monocyte% 2.4 % (0-10); NRBC Flagged by Analyzer 0 % (0-5); Neutrophil # 5.63 X10^3/uL (2.7-7.7); POSITIVE COUNT YES; POSITIVE DIFFERENTIAL YES; POSITIVE MORPHOLOGY YES; Platelet Count 173 K/mm3 (150-450); RBC Distribution Width CV 14.6 % (11.6-14.6); RBC Distribution Width SD 49.4 fl (35.1-43.9); Red Blood Count 4.32 M/mm3 (4.2-5.4)
[2020-07-14 23:45] LABS: Differential Indicated SCAN CRITERIA MET; White Blood Count 40.5 K/mm3 (4.4-11.0)
[2020-07-14 23:57] LABS: Anion Gap 6 (5-15); BUN 24 mg/dL (7-18); BUN/Creat Ratio 23.8 RATIO (10-20); Calcium,Total 8.9 mg/dL (8.5-10.1); Chloride 106 mmol/L (98-107); Creatinine, Serum 1.01 mg/dL (0.55-1.02); EST Glomerular Filtration Rate 56 mL/min (>60); Est Glom Filt Rate - Afr Amer 68 mL/min (>60); Estimated Creatinine Clearance 40.28 ml/min; Glucose 100 mg/dL (74-106); Sodium Level 141 mmol/L (136-145)
[2020-07-15 00:30] VITALS: BP 124/59; PULSE 67; RESP 16; O2SAT 95
[2020-07-15 14:20] LABS: Pathologist Review Reviewed
== END 2020-07-15 00:31 | disposition home or self-care (01) ==
PROVIDERS: Emergency Provider Emergency Medicine; PCP Internal Medicine
DX: I10 Essential (primary) hypertension (principal); C91.10 Chronic lymphocytic leukemia of B-cell type not having achieved remission; Z85.828 Personal history of other malignant neoplasm of skin; Z79.899 Other long term (current) drug therapy
CPT/HCPCS: 80048; 84484; 85025; 93005; 99284; A4216

== ENCOUNTER 2020-08-02 18:00 | Observation (INO) | payer MEDICARE, OTHER, SELFPAY ==
[2020-07-17 14:13] VITALS: BMI 29.1
[2020-08-02 18:02] VITALS: BP 147/66; PULSE 78; RESP 22; TEMP 36.9; O2SAT 97; BMI 29.0
--- NOTE | 2020-08-02 18:18 | EKG12_ITS ---
Test Reason : Blood Pressure : / mmHG Vent. Rate : 076 BPM Atrial Rate : 076 BPM P-R Int : 170 ms QRS Dur : 094 ms QT Int : 374 ms P-R-T Axes : 059 044 042 degrees QTc Int : 420 ms Normal sinus rhythm Normal ECG Confirmed by EZRA SALAS, GEORGE ([id number]), manager editorial MELVIN GOODWIN ([id number]) on 08/08/2020 10:01:58 AM Referred By: MIRTA Confirmed By:BE MUNGUIA MD
--- NOTE | 2020-08-02 18:18 | RAD_ITS ---
STUDY: X-RAY CHEST REASON FOR EXAM: Female, 79 years old. chest pain TECHNIQUE: 1 view COMPARISON: Prior chest radiograph of 09/13/2019 FINDINGS: The lungs are clear and expanded. There is no demonstrated pleural abnormality. Normal size heart. Normal mediastinum and surjit. Normal visualized pulmonary arteries. There is atherosclerotic calcification of the aortic arch with tortuosity. Normal visualized thoracic spine. There is degenerative osteoarthritis of the bilateral shoulders. There is no demonstrated abnormality of the visualized soft tissue structures of the upper abdomen. RAD/Chest 1 View (Portable) IMPRESSION: No acute cardiopulmonary findings or changes. Negative for consolidation, infiltrates, pleural effusion or cardiomegaly. Electronically Signed: Ashlyn Burks MD at 18:56 EST , Service support ,
[2020-08-02 18:45] LABS: Absolute Lymphocyte Count 32.57 X10^3/uL (0.83-4.51); Absolute Neutrophil Count 5.6 X10^3/uL (2.0-7.7); Basophil# 0.09 X10^3/uL; Basophil% 0.2 % (0-1); Eosinophil# 0.15 X10^3/uL; Eosinophils% 0.4 % (0-5); Hematocrit 40.1 % (37-47); Hemoglobin 12.6 g/dL (12.0-15.0); Lymphocyte # 32.57 X10^3/ul (4.0); Lymphocyte % 82.4 % (19-41); Mean Corp Hgb Conc 31.4 g/dL (32-36); Mean Corpuscular Volume 92.4 fL (81-99); Mean Platelet Vol. 12.5 fl (6.2-12.0); Monocyte# 0.98 X10^3/uL; Monocyte% 2.5 % (0-10); NRBC Flagged by Analyzer 0 % (0-5); Neutrophil # 5.64 X10^3/uL (2.7-7.7); Neutrophil % 14.2 % (47-70); POSITIVE COUNT YES; POSITIVE DIFFERENTIAL YES; POSITIVE MORPHOLOGY YES; Platelet Count 165 K/mm3 (150-450); RBC Distribution Width CV 14.5 % (11.6-14.6); RBC Distribution Width SD 49.2 fl (35.1-43.9); Red Blood Count 4.34 M/mm3 (4.2-5.4)
[2020-08-02 18:50] VITALS: O2SAT 98
[2020-08-02] MEDS: 0.9% Normal Saline 1,000 ML 150 ML IV (18:51)
[2020-08-02] MEDS: Aspirin 81 MG TAB.CHEW 162 MG PO (18:52)
[2020-08-02 18:59] LABS: Differential Indicated SCAN CRITERIA MET; White Blood Count 39.5 K/mm3 (4.4-11.0)
[2020-08-02 19:00] LABS: D-Dimer Quantitative (DVT/PE) < 0.27 FEU/ug/m (0.27-0.49)
[2020-08-02 19:11] LABS: Differential Comment SCANNED
[2020-08-02 19:12] LABS: Smudge Cells 1+
[2020-08-02 19:13] LABS: Anion Gap 5 (5-15); BUN 23 mg/dL (7-18); BUN/Creat Ratio 20.7 RATIO (10-20); Calcium,Total 8.9 mg/dL (8.5-10.1); Chloride 105 mmol/L (98-107); Creatinine, Serum 1.11 mg/dL (0.55-1.02); EST Glomerular Filtration Rate 51 mL/min (>60); Est Glom Filt Rate - Afr Amer 61 mL/min (>60); Estimated Creatinine Clearance 36.65 ml/min; Glucose 90 mg/dL (74-106); Potassium 4.2 mmol/L (3.5-5.1); Sodium Level 139 mmol/L (136-145)
--- NOTE | 2020-08-02 19:19 | ED.VISSUMM ---
- ER Visit Summary Date of Service: 08/02/20 Chief Complaint: [Chest pain] History of Present Illness: The patient is a 79 F presents to the emergency department with complaint of pain/pressure in her chest that started initially 2 days ago. Patient currently rates her pain a 4 out of 10. Today she states the pain radiated down her left arm. She denies any nausea or vomiting. She denies feeling short of breath. Patient states that the pain will come and go and does not necessarily have to be exertional. Patient has history of hypertension, high cholesterol, and history of CLL. She denies recent travel or surgery. She denies recent illness. She denies any COVID-19 exposures.] Physical Examination: [HEENT-PERRLA, EOMI. Cranial nerves II through XII grossly intact. TMs clear. Mucous membranes moist. No adenopathy. Cardiovascular-regular rate and rhythm without murmur or ectopy Lungs-clear to auscultation, chest wall stable without crepitus or subcu emphysema Abdomen-normoactive bowel sounds, soft, nontender, no rebound or rigidity, no peritoneal signs. Extremities-intact ?4, normal range of motion, normal pulses, atraumatic] Test Results: [EKG obtained arrival shows sinus rhythm with a ventricular rate of 76 bpm with no acute segment changes. CBC with differential showing a 39.5, platelets 1.6, hematocrit 40, plates 165. Chemistries unremarkable. Troponin less than 0.015. D-dimer was less than 0.27. Chest x-ray showed nothing acute.] Emergency Department Course and Treatment: [IV line established on arrival. 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 Patient was given 2 baby aspirin p.o.] Treatment Plan: [Admit for further work-up and evaluation of her chest pain] Disposition: [Admit] Impression: [Chest pain-rule out acute coronary syndrome] This note was generated with Evver dictation software. It may contain incorrect words, spelling, and punctuation that were not noted in review of the chart prior to signing ED Disposition - Plan for ED Patient: Referrals: Gail Lopes MD [Primary Care Provider] -
--- NOTE | 2020-08-02 19:44 | PCM.HP.STD ---
Problem List (1) Chest pain Status: Acute (2) Hyperlipidemia Status: Chronic (3) Hypertension Status: Chronic (4) Chronic lymphocytic leukemia Status: Chronic History of Present Illness Date of Admission: 08/02/20 Chief Complaint: Chest pain The patient is a 79 year old F with past medical history as mentioned above presented to the emergency room because of chest pain. Her symptoms started 2 days ago with chest pain, left-sided chest pain, intermittent, pressure-like pain, 4 out of 10 in severity, radiates to the left arm, no associated symptoms and no aggravating or relieving factors. She denies shortness of breath, palpitation, dizziness or lightheadedness. She denied syncope or presyncope. Currently, she is pain-free after she received aspirin. Her vital signs are stable. Her routine blood work was remarkable for chronic leukocytosis with neutrophilia secondary to CLL, BUN of 23 and creatinine is 1.11 which is chronic. EKG revealed normal sinus rhythm without evidence of acute ischemic changes. Troponin was negative. D-dimer was normal. Chest x-ray showed no acute findings. She is being admitted for chest pain for evaluation. Past Medical History Past Medical History (Chronic Problems): Chronic Problems (Last Reviewed 07/17/20 @ 14:11 by Kalyn Bonilla) Hyperlipidemia (Chronic) Hypertension (Chronic) Chronic lymphocytic leukemia (Chronic) History of basal cell carcinoma (Chronic) Hypogammaglobulinemia (Chronic) Lymphadenopathy (Chronic) Medical History: Medical History (Last Reviewed 07/17/20 @ 14:11 by Kalyn Bonilla) Eczema L30.9 Psoriasis L40.9 Allergies meloxicam Adverse Reaction (Intermediate, Verified 08/02/20 18:01) Swelling feet aspirin Adverse Reaction (Verified 08/02/20 18:02) thin skin Home Medications: Ambulatory Orders Medication Instructions Recorded Cholecalciferol (VIT D3) [Vitamin 1,000 unit PO DAILY 09/26/15 D3] Multivitamins,Therapeutic 1 tablet PO DAILY 09/26/15 [Multivitamin] Ibrutinib [Imbruvica] 420 mg PO DAILY 02/08/18 Simvastatin [Zocor] 10 mg PO DAILY 02/24/18 Iron Carbonyl [Feosol] 45 mg PO DAILY 03/24/18 Fluticasone 0.05% [Flonase Nasal 1 spray NASAL DAILY 01/28/19 [place]] Losartan Potassium [Cozaar] 100 mg PO DAILY 05/31/19 Allopurinol 100 mg PO DAILY 30 Days #30 tab 07/26/19 Hydrochlorothiazide 12.5 mg PO DAILY 10/25/19 Cetirizine HCl [Allergy Relief] 10 mg PO DAILY 08/02/20 Surgical History: Surgical History (Last Updated 07/17/20 @ 14:15 by Kalyn Bonilla) History of cataract surgery Z98.49 History of cholecystectomy Z90.February History of foot surgery Z98.890 LEFT FOOT 2ND TOE History of sinus surgery Z98.890 History of sinus surgery Z98.890 Surgical History: cataract, cholecystectomy Psychiatric History: No pertinent psych hx 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 Denies: Edema, Heaviness, Palpitations, Syncope Respiratory: Denies: Cough, Hemoptysis, Pleuritic Pain, Shortness of Breath, Sputum production, Wheezing Gastrointestinal: Denies: Abdominal Pain, Constipation, Diarrhea, Nausea, Vomiting Genitourinary: Denies: Dysuria, Frequency, Hematuria Musculoskeletal: Denies: Arm Pain, Back Pain, Foot Pain Skin: Denies: Dryness, Rash Neurological: Denies: Balance problems, Double vision, Slurred speech, Confusion, Headaches, Incoordination Psychiatric: Denies: Anxiety, Depression Endocrine: Denies: Change in Body Habitus, Polydipsia, Polyuria VTE Information - Inpt Only VTE Present on Admission: No VTE Mechan Device Prophylaxis: None VTE Pharm Prophylaxis ordered?: Yes - Physical Exam Vitals/I&O's: Vital Signs Temp Pulse Resp BP Pulse Ox 98.5 F 78 22 H 147/66 H 98 08/02/20 18:02 08/02/20 18:02 08/02/20 18:02 08/02/20 18:02 08/02/20 18:50 Oxygen Delivery Method Room Air Weight: 169 lb 1.513 oz Body Mass Index (BMI) 29.0 General: Alert, Oriented x3, Cooperative, No apparent distress HEENT: Atraumatic, PERRLA, EOMI, Normocephalic Oral: Moist Mucosa, No Gingival or Mucosal Lesions/ Ulcerations Neck: Supple, No JVD, Negative Carotid Bruits, Trachea Midline, Thyroid Normal Size and Texture Lungs: Clear to auscultation, Normal air movement, No rhonchi, No wheeze, No rales Cardiovascular: Regular rate, Regular Rhythm, Normal S1, Normal S2, PMI Normal Abdomen: Bowel Sounds Present, Soft, Non Tender, Non-Distended, No Hepato-splenomegaly Extremities: No clubbing, No cyanosis, Edema - Trace edema. Skin: No rashes, No breakdown Lymphatic: No Cervical, Supraclavicular, or Inguinal Adenopathy Neurological: Cranial nerves II-XII grossly intact, Motor Exam 5/5 strength throughout Psych/Mental Status: Normal Affect, Appropriate, Alert and oriented to time, place, person, mood and affect Laboratory Results 08/02/20 18:35: WBC 39.5 H*, RBC 4.34, Hgb 12.6, Hct 40.1, MCV 92.4, MCH 29.0, MCHC 31.4 L, RDW Std Deviation 49.2 H, RDW Coeff of Yolie 14.5, Plt Count 165, MPV 12.5 H, Immature Gran % (Auto) 0.300, Neut % (Auto) 14.2 L, Lymph % (Auto) 82.4 H, [place] % (Auto) 2.5, Eos % (Auto) 0.4, Baso % (Auto) 0.2, Absolute Neuts (auto) 5.6, Absolute Lymphs (auto) 32.57 H, Nucleated RBC % 0, Differential Comment SCANNED, Diff Path Review May foll, Smudge Cells 1+ H 08/02/20 18:35: D-Dimer Quant (PE/DVT) < 0.27 L 08/02/20 18:35: Sodium 139, Potassium 4.2, Chloride 105, Carbon Dioxide 29.0, Anion Gap 5, BUN 23 H, Creatinine 1.11 H, Estim Creat Clear Calc 36.65, Est GFR (MDRD) Af Amer 61, Est GFR (MDRD) Non-Af 51 L, BUN/Creatinine Ratio 20.7 H, Glucose 90, Calcium 8.9, Troponin I < 0.015 Clinical Impression(s) from Imaging Studies Chest X-Ray 08/02/20 18:18 IMPRESSION: No acute cardiopulmonary findings or changes. Negative for consolidation, infiltrates, pleural effusion or cardiomegaly. Electronically Signed: Ashlyn Burks MD at 18:56 EST , Service support , Current Medications Sodium Chloride () 1,000 mls @ 150 mls/hr IV .Q6H40M RACHEL Last Admin: 08/02/20 18:51 Dose: 150 mls/hr Documented by: Assessment/Plan All Active Problems (Last Reviewed 07/17/20 @ 14:11 by Kalyn Bonilla) Chest pain (Acute) This is a 79 years old female patient presented to the emergency room because of chest pain and she is being admitted for evaluation. #1 chest pain: Initial EKG, chest x-ray and troponin were unremarkable. Risk factors are age, hypertension and hyperlipidemia. No family history of premature CAD. Plan: Admit to PCU for observation, cardiac monitoring, serial cardiac enzymes, nitroglycerin as needed sublingual, nuclear stress test tomorrow morning cardiac enzymes are negative, gentle IV fluids for hydration, Tylenol as needed, Zofran as needed. #2 chronic lymphocytic leukemia: With chronic leukocytosis and neutrophilia. Currently, she is on chemotherapy with Imbruvica, follow-up with Dr. Story. Plan to continue Imbruvica. #3 hypertension: Blood pressure stable, continue losartan and HCTZ. #4 hyperlipidemia: Continue statins. #5 DVT prophylaxis: Subcu Lovenox. This note was generated with Twitter dictation software. It may contain incorrect words, spelling, and punctuation that were not noted in checking the note before signing. OBSV E&M: [id number] Initial observation care L3
[2020-08-02 20:07] VITALS: BP 128/57; PULSE 63; RESP 16; TEMP 36.7; O2SAT 95
[2020-08-02 20:33] VITALS: PULSE 67
[2020-08-02 20:34] VITALS: BMI 27.9; BMI 28.0
[2020-08-02 20:42] VITALS: BP 135/59; PULSE 65; RESP 16; TEMP 36.5; O2SAT 97
[2020-08-02] MEDS: 0.9% Normal Saline 1,000 ML 75 ML IV (20:55)
[2020-08-02] MEDS: Atorvastatin Calcium 10 MG Tablet 5 MG PO (21:13)
--- NOTE | 2020-08-02 21:34 | EKG12_ITS ---
Test Reason : CP ADMISSION Blood Pressure : / mmHG Vent. Rate : 067 BPM Atrial Rate : 067 BPM P-R Int : 190 ms QRS Dur : 098 ms QT Int : 394 ms P-R-T Axes : 064 051 047 degrees QTc Int : 416 ms Normal sinus rhythm Normal ECG When compared with ECG of 02-AUG-2020 18:12, MANUAL COMPARISON REQUIRED, DATA IS UNCONFIRMED Confirmed by EZRA SALAS, GEORGE ([id number]), senior editor MELVIN GOODWIN ([id number]) on 08/08/2020 11:59:26 AM Referred By: JATINDER Confirmed By:BE MUNGUIA MD
--- NOTE | 2020-08-02 23:39 | PCS.PANDOC ---
PANDEMIC DOCUMENTATION INITIATED: Date: 08/02/20 Time: 20:20
[2020-08-03 01:24] LABS: Absolute Lymphocyte Count 31.48 X10^3/uL (0.83-4.51); Absolute Neutrophil Count 4.3 X10^3/uL (2.0-7.7); Basophil# 0.09 X10^3/uL; Basophil% 0.2 % (0-1); Eosinophil# 0.19 X10^3/uL; Eosinophils% 0.5 % (0-5); Hematocrit 38.6 % (37-47); Hemoglobin 12.1 g/dL (12.0-15.0); Lymphocyte # 31.48 X10^3/ul (4.0); Lymphocyte % 85.1 % (19-41); Mean Corp Hgb Conc 31.3 g/dL (32-36); Mean Corpuscular Hgb 29.3 pg (27.0-32.0); Mean Corpuscular Volume 93.5 fL (81-99); Mean Platelet Vol. 12.9 fl (6.2-12.0); Monocyte% 2.4 % (0-10); NRBC Flagged by Analyzer 0 % (0-5); Neutrophil # 4.29 X10^3/uL (2.7-7.7); Neutrophil % 11.6 % (47-70); POSITIVE COUNT YES; POSITIVE DIFFERENTIAL YES; POSITIVE MORPHOLOGY YES; Platelet Count 141 K/mm3 (150-450); RBC Distribution Width CV 14.8 % (11.6-14.6); RBC Distribution Width SD 50.9 fl (35.1-43.9); Red Blood Count 4.13 M/mm3 (4.2-5.4)
[2020-08-03 01:29] LABS: Anion Gap 3 (5-15); BUN 21 mg/dL (7-18); Calcium,Total 8.4 mg/dL (8.5-10.1); Chloride 108 mmol/L (98-107); Creatinine, Serum 1.05 mg/dL (0.55-1.02); EST Glomerular Filtration Rate 54 mL/min (>60); Est Glom Filt Rate - Afr Amer 65 mL/min (>60); Estimated Creatinine Clearance 38.75 ml/min; Glucose 123 mg/dL (74-106); Potassium 3.8 mmol/L (3.5-5.1); Sodium Level 142 mmol/L (136-145)
[2020-08-03 02:53] LABS: Differential Indicated SCAN CRITERIA MET
[2020-08-03 02:57] LABS: Differential Comment SCANNED; Reactive Lymphocyte 3+
[2020-08-03 03:00] VITALS: BP 122/56; PULSE 69; RESP 16; TEMP 36.7; O2SAT 98
[2020-08-03 03:01] VITALS: PULSE 60
--- NOTE | 2020-08-03 05:55 | NM_ITS ---
CLINICAL: 79-year-old hypertensive, hypercholesterolemic female with reported history of chest discomfort. REST-REGADENOSON 99m Tc SESTAMIBI MYOCARDIAL PERFUSION SPECT COMPARISON: None available FINDINGS: Following the intravenous administration of 12.0 mCi of 99m Tc sestamibi, the resting myocardial perfusion acquisitions demonstrate uniform radiopharmaceutical concentration throughout all left ventricular segments. The patient was administered intravenous regadenoson (0.4 mgm). Following the intravenous administration of 36.0 mCi of 99m Tc sestamibi, the post regadenoson images reveal likewise normal perfusion throughout all left ventricular myocardial segments. The post stress resting left ventricular ejection fraction is calculated to be > 70 % by gated SPECT technique. Wall motion and end systolic thickening are considered normal. NM/Nuclear Stress Test - Chemical IMPRESSION: 1. NORMAL REST-REGADENOSON STRESS 99m Tc SESTAMIBI MYOCARDIAL PERFUSION SPECT. A. No evidence of pharmacologically induced left ventricular ischemia. B. Preservation of resting left ventricular systolic function. (Daniel et al, J Nucl Med 37: 105P, 1995). Electronically Signed: Iain Bhandari DO at 13:38 EST Tel , Service support ,
[2020-08-03 06:30] VITALS: BP 122/49; PULSE 64; RESP 16; TEMP 36.4; O2SAT 96
[2020-08-03] MEDS: Losartan Potassium 100 MG Tablet PO (06:32)
[2020-08-03] MEDS: Aspirin E.C. 81 MG Tablet PO (06:32)
[2020-08-03 07:00] VITALS: PULSE 62
[2020-08-03 07:45] VITALS: O2SAT 96
--- NOTE | 2020-08-03 11:23 | PCM.DC ---
- Discharge Diagnoses Current Active Problems: Current Active and Chronic Problems (Last Reviewed 07/17/20 @ 14:11 by Kalyn Bonilla) Chest pain (Acute) Hyperlipidemia (Chronic) Hypertension (Chronic) Chronic lymphocytic leukemia (Chronic) You will use the following diet at home:: Cardiac Your food should be the consistency of: Regular Discharge Activity: May Not Drive Weight Bearing Status: Weight bearing as tolerated Call your doctor if you observe: Fever of 101 or Higher, Coldness, Increased Pain, Numbness or Tingling, Inability to urinate, Inability to have a bowel movement, Shortness of breath, Dizziness, Fainting spells, Swelling in the ankles, Chest pain, Prolonged hiccoughing, Increased palpitations (irregular heartbeat), Calf discomfort, Uncontrolled pain Additional Instructions: Patient PCP recommended event monitor as patient has multiple PVCs sometimes feels it. 30-day event monitor approved by Dr. Velez Allergies/Adverse Reactions: Allergies meloxicam Adverse Reaction (Intermediate, Verified 08/02/20 20:44) Swelling feet aspirin Adverse Reaction (Verified 08/02/20 20:44) thin skin Medications to take at Discharge Cholecalciferol (VIT D3) [Vitamin D3] 1,000 unit PO DAILY 09/26/15 Multivitamins,Therapeutic [Multivitamin] 1 tablet PO DAILY 09/26/15 Ibrutinib [Imbruvica] 420 mg PO DAILY 02/08/18 Simvastatin [Zocor] 10 mg PO DAILY 02/24/18 Iron Carbonyl [Feosol] 45 mg PO DAILY 03/24/18 Fluticasone 0.05% [Flonase Nasal [place]] 1 spray NASAL DAILY 09/05/18 Losartan Potassium [Cozaar] 100 mg PO DAILY 05/31/19 Allopurinol 100 mg PO DAILY 30 Days #30 tab 07/26/19 Hydrochlorothiazide 12.5 mg PO DAILY 10/25/19 Cetirizine HCl [Allergy Relief] 10 mg PO DAILY 08/02/20 Primary Care Physician: Gail Lopes MD [Primary Care Provider] - Please follow up with your Primary Care Physician in: in 2 weeks Test Results: Test results from this visit will be discussed in further detail at your follow-up appointment, if applicable.
[2020-08-03 11:48] LABS: Cholesterol 127 mg/dL (200); High Density Lipoprotein 43 mg/dL; Triglycerides 115 mg/dL; Very Low Density Lipoprotein 23 mg/dL (5-40)
[2020-08-03 13:30] VITALS: BP 123/52; PULSE 66; RESP 18; TEMP 36.6; O2SAT 97
--- NOTE | 2020-08-03 14:40 | DS.PCM_ITS ---
Discharge Date and Diagnosis - Problem List Patient Problems: Active and Suspected Problems (Last Reviewed 07/17/20 @ 14:11 by Kalyn Bonilla) Chest pain (Acute) Date of Admission: 08/02/20 Date of Discharge: 08/03/20 - Primary Discharge Diagnosis Acute Problems: Active Problems (Last Reviewed 07/17/20 @ 14:11 by Kalyn Bonilla) Chest pain (Acute) - Secondary Discharge Diagnosis Chronic Problems: Chronic Problems (Last Reviewed 07/17/20 @ 14:11 by Kalyn Bonilla) Hyperlipidemia (Chronic) Hypertension (Chronic) Chronic lymphocytic leukemia (Chronic) History of basal cell carcinoma (Chronic) Hypogammaglobulinemia (Chronic) Lymphadenopathy (Chronic) Hospital Course and Treatment Imaging Results: 08/03/20 05:55 Nuclear Stress Test - Chemical [NM] AM (NON MEDS) Summary of Care Provided: The patient is a 79 year old F with history of CLL with neutrophilia on chemoth erapy, on Imbruvica, follows Dr. Story admitted with history of 2 days of left- sided chest pressure with shortness of shortness of breath. JARROD risk score of 2. Patient was admitted on PCU. Has ischemia guided protocol for chest pain evaluation. Serial troponin negative. EKG normal sinus rhythm, unremarkable. Patient had pharmacological nuclear stress test which was negative for stress-induced acute ischemia. 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 Patient PCP recommended event monitor. 30-day event monitor prescription given, approved by Dr. Velez. Serum potassium and sodium normal. Fasting profile LDL 61, triglyceride 127. Patient other comorbidities CLL, hypertension, dyslipidemia. Blood pressure is controlled. Discharge medication reconciliation done. Discharge follow-up instructions completed. Discharge process discussed with the patient and all questions were answered to patient's satisfaction. Discharged home on her home medications Patient Problems: Active and Suspected Problems (Last Reviewed 07/17/20 @ 14:11 by Kalyn Bonilla) Chest pain (Acute) Objective: Seen and examined. Patient does not have chest pain. Was admitted with history of left-sided chest pain 2 days ago felt like pressure-like without an associated symptom. JARROD risk score 2. 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 No crepitation/rhonchi Cardiovascular: Regular rate, Regular Rhythm, Normal S1, Normal S2, No murmurs Abdomen: Bowel Sounds Present, Soft, Non Tender, Non-Distended : No renal angle tenderness. No suprapubic tenderness. Extremities: No edema, Capillary Refill Less than 3 Seconds Skin: No rashes, No breakdown Musculoskeletal: No Tenderness to Palpation of Joints or Extremities Neurological: Cranial nerves II-XII grossly intact, Deep Tendon Reflexes 2+/4 and Symmetrical, Neuro grossly intact Psych/Mental Status: Normal Affect, Appropriate. - Physical Exam Vitals/I&O's: Vital Signs Temp Pulse Resp BP Pulse Ox 97.6 F L 62 16 122/49 H 96 08/03/20 06:30 08/03/20 07:00 08/03/20 06:30 08/03/20 06:30 08/03/20 07:45 Oxygen Delivery Method Room Air Weight: 162 lb 14.746 oz Body Mass Index (BMI) 27.9 Intake and Output for Last 24 Hours 08/01/20 08/02/20 08/03/20 23:59 23:59 23:59 Intake Total 553 / 553 Balance 553 / 553 Laboratory Results 08/02/20 18:35: WBC 39.5 H*, RBC 4.34, Hgb 12.6, Hct 40.1, MCV 92.4, MCH 29.0, MCHC 31.4 L, RDW Std Deviation 49.2 H, RDW Coeff of Yolie 14.5, Plt Count 165, MPV 12.5 H, Immature Gran % (Auto) 0.300, Neut % (Auto) 14.2 L, Lymph % (Auto) 82.4 H, [place] % (Auto) 2.5, Eos % (Auto) 0.4, Baso % (Auto) 0.2, Absolute Neuts (auto) 5.6, Absolute Lymphs (auto) 32.57 H, Nucleated RBC % 0, Differential Comment SCANNED, Diff Path Review May foll, Smudge Cells 1+ H 08/02/20 18:35: D-Dimer Quant (PE/DVT) < 0.27 L 08/02/20 18:35: Sodium 139, Potassium 4.2, Chloride 105, Carbon Dioxide 29.0, Anion Gap 5, BUN 23 H, Creatinine 1.11 H, Estim Creat Clear Calc 36.65, Est GFR (MDRD) Af Amer 61, Est GFR (MDRD) Non-Af 51 L, BUN/Creatinine Ratio 20.7 H, Glucose 90, Calcium 8.9, Troponin I < 0.015 08/02/20 21:00: Troponin I < 0.015 08/03/20 00:24: Troponin I < 0.015 08/03/20 00:25: WBC 37.0 H*, RBC 4.13 L, Hgb 12.1, Hct 38.6, MCV 93.5, MCH 29.3, MCHC 31.3 L, RDW Std Deviation 50.9 H, RDW Coeff of Yolie 14.8 H, Plt Count 141 L , MPV 12.9 H, Immature Gran % (Auto) 0.200, Neut % (Auto) 11.6 L, Lymph % (Auto) 85.1 H, [place] % (Auto) 2.4, Eos % (Auto) 0.5, Baso % (Auto) 0.2, Absolute Neuts (auto) 4.3, Absolute Lymphs (auto) 31.48 H, Nucleated RBC % 0, Differential Comment SCANNED, Diff Path Review May foll, Reactive Lymphocytes 3+ 08/03/20 00:25: Sodium 142, Potassium 3.8, Chloride 108 H, Carbon Dioxide 31.0, Anion Gap 3 L, BUN 21 H, Creatinine 1.05 H, Estim Creat Clear Calc 38.75, Est GFR (MDRD) Af Amer 65, Est GFR (MDRD) Non-Af 54 L, BUN/Creatinine Ratio 20.0, Glucose 123 H, Calcium 8.4 L Current Medications Acetaminophen (Acetaminophen 325 Mg Tablet) 650 mg PO Q6H PRN PRN PRN Reason: Pain Score 1-10/Temp > 100.7 F Allopurinol (Allopurinol 100 Mg Tablet) 100 mg PO DAILYCM [facility] Aspirin (Aspirin E.C. 81 Mg Tablet) 81 mg PO DAILY@0800 [facility] Last Admin: 08/03/20 06:32 Dose: 81 mg Documented by: Atorvastatin Calcium (Atorvastatin Calcium 10 Mg Tablet) 5 mg PO DAILY@2200 [facility] Last Admin: 08/02/20 21:13 Dose: 5 mg Documented by: Enoxaparin Sodium (Enoxaparin 40 Mg/0.4 Ml Syringe) 40 mg SC DAILY [facility] Fluticasone Propionate (Fluticasone 0.05% 1 [place] Nasal.Sry) 1 spray NASAL DAILY [facility] Hydrochlorothiazide (Hydrochlorothiazide 12.5mg) 12.5 mg PO DAILY [facility] Iron (Iron Carbonyl 45 Mg Capsule) 45 mg PO DAILY [facility] Loratadine (Loratadine 10 Mg Tablet) 10 mg PO DAILY [facility] Losartan Potassium (Losartan Potassium 100 Mg Tablet) 100 mg PO DAILY [facility] Last Admin: 08/03/20 06:32 Dose: 100 mg Documented by: Nitroglycerin (Nitroglycerin (Inpatient Use) 0.4 Mg Tab.Subl) 0.4 mg SUBLINGUAL Q5M PRN PRN Reason: CARDIAC/CHEST PAIN Non-Formulary Medication (Ibrutinib) 420 mg PO DAILY [facility] Nutritional Formula (Lactose Free) (Ensure Enlive 120 Ml Liquid) 120 ml PO 4X/DAY [facility] Ondansetron HCl (Ondansetron 4 Mg/2 Ml Vial) 4 mg IV Q8H PRN PRN PRN Reason: NAUSEA/VOMITING Senna/Docusate Sodium (Senna/Docusate Sodium 1 Tablet) 2 tablet PO BID PRN PRN PRN Reason: Constipation Sodium Chloride (0.9% Saline Lock 10 Ml Syringe) 10 - 40 ml IV UD PRN PRN Reason: SALINE FLUSH Zolpidem Tartrate (Zolpidem Tartrate 5 Mg Tablet) 5 mg PO QHS PRN PRN PRN Reason: INSOMNIA Discharge Activity: May Not Drive Call your doctor if you observe: Fever of 101 or Higher, Coldness, Increased Pain, Numbness or Tingling, Inability to urinate, Inability to have a bowel movement, Shortness of breath, Dizziness, Fainting spells, Swelling in the ankles, Chest pain, Prolonged hiccoughing, Increased palpitations (irregular heartbeat), Calf discomfort, Uncontrolled pain Home Medications: Medications to take at Discharge Cholecalciferol (VIT D3) [Vitamin D3] 1,000 unit PO DAILY 09/26/15 Multivitamins,Therapeutic [Multivitamin] 1 tablet PO DAILY 09/26/15 Ibrutinib [Imbruvica] 420 mg PO DAILY 02/08/18 Simvastatin [Zocor] 10 mg PO DAILY 02/24/18 Iron Carbonyl [Feosol] 45 mg PO DAILY 03/24/18 Fluticasone 0.05% [Flonase Nasal [place]] 1 spray NASAL DAILY 09/05/18 Losartan Potassium [Cozaar] 100 mg PO DAILY 05/31/19 Allopurinol 100 mg PO DAILY 30 Days #30 tab 07/26/19 Hydrochlorothiazide 12.5 mg PO DAILY 10/25/19 Cetirizine HCl [Allergy Relief] 10 mg PO DAILY 08/02/20 Other Amb Orders: 30-Day Event Recorder [[facility]] Time Frame: 08/05/20, Facility: [facility], Location: [facility] Primary Care Physician: Gail Lopes MD [Primary Care Provider] - Please follow up with your Primary Care Physician in: in 2 weeks Medical Necessity - Tobacco Use Smoking Status: Never smoker Meaningful Use Info Meaningful Use Diagnoses (Choose all that apply): None applicable OBSV E&M: 69059 Observation care discharge
[2020-08-05 12:05] LABS: Pathologist Review Reviewed
[2020-08-05 12:12] LABS: Pathologist Review Reviewed
--- NOTE | 2020-08-28 10:18 | STRESSREP ---
Stress Test Report Date: 08-03-2020 Procedure: Pharmacologic stress nuclear imaging study Indications: Chest pain Consent: Per the patient Procedure: The patient underwent pharmacologic (Regadenoson) evaluation with a peak heart rate of 96 beats per minute (67% predicted maximal heart rate) and a peak blood pressure of 134/62 mmHg. The baseline ECG demonstrated sinus rhythm. The peak pharmacologic ECG demonstrated no obvious ECG changes. There were no cardiac dysrhythmias pretest, during pharmacologic infusion, or recovery. There was no complaint of chest discomfort during pharmacologic infusion or recovery. The examination was discontinued secondary to completion of protocol. Impression: 1. Pharmacologic (Regadenoson) evaluation 2. Peak pharmacologic ECG with no obvious ECG changes. 3. There were no cardiac dysrhythmias pretest, during pharmacologic infusion, or recovery. 4. Nuclear images pending and reported separately by radiology. This note was generated with [employer] dictation software. It may contain incorrect words, spelling, and punctuation that were not noted in checking the note before signing.
== END 2020-08-03 11:24 | disposition home or self-care (01) ==
LOC: ED 18:25 → PCU 19:52
PROVIDERS: Admitting Provider Hospitalist; Emergency Provider Emergency Medicine; PCP Internal Medicine; Visit Provider Internal Medicine
DX: R07.89 Other chest pain (principal); I10 Essential (primary) hypertension; C91.10 Chronic lymphocytic leukemia of B-cell type not having achieved remission; Z79.899 Other long term (current) drug therapy; E78.5 Hyperlipidemia, unspecified; L40.9 Psoriasis, unspecified; L30.9 Dermatitis, unspecified; R06.02 Shortness of breath
CPT/HCPCS: 36415; 71045; 78452; 80048; 80061; 84484; 85025; 85379; 93005; 93017; 96360; 96361; 99218; 99285; A9500; J7030; A4216; G0378; J2785

== ENCOUNTER 2021-07-17 16:51 | Outpatient (CLI) | payer MEDICARE, OTHER, SELFPAY ==
[2021-07-17] MEDS: 0.9% Saline Lock 10 ML Syringe IV (17:15)
[2021-07-17 17:19] VITALS: BP 157/61; PULSE 78; RESP 16; TEMP 37.4; O2SAT 96; BMI 29.5
[2021-07-17 17:52] VITALS: BP 133/55; PULSE 72; RESP 16; TEMP 37.3; O2SAT 97
[2021-07-17 18:52] VITALS: BP 141/54; PULSE 73; RESP 16; TEMP 37.3; O2SAT 98
== END 2021-07-17 18:52 | disposition home or self-care (01) ==
LOC: MS3OUT 16:51 → MS3 16:52
PROVIDERS: PCP Internal Medicine; Referring Provider Nurse Practitioner Adult Health; Visit Provider Nurse Practitioner Adult Health
DX: Z23 Encounter for immunization (principal); U07.1 COVID-19
CPT/HCPCS: J7050; M0245; Q0245; A4216

== ENCOUNTER 2021-09-28 17:22 | Emergency (ER) | payer MEDICARE, OTHER, SELFPAY ==
[2021-09-28 17:23] VITALS: BP 152/67; PULSE 86; RESP 15; TEMP 35.9; O2SAT 98
--- NOTE | 2021-09-28 17:48 | CT_ITS ---
STUDY: CT BRAIN WITHOUT CONTRAST REASON FOR EXAM: Female, 80 years old. Fall on ice; hematoma RADIATION DOSAGE (If Supplied By Facility): CTDIvol = ( 47.06 ) mGy, DLP = ( 890.33 ) mGycm TECHNIQUE: Transaxial CT imaging of the brain was performed without administration of intravenous contrast material. Individualized dose optimization techniques were used for this CT. COMPARISON: 09/13/2019. FINDINGS: Hematoma in the scalp overlying the right parietal bone without associated skull fracture. Normal size ventricles and extra-axial spaces for the patient''s age. Mild periventricular white matter ischemic changes. Normal basal ganglia and thalami. Normal brainstem. Normal cerebellum. There is no intracranial hemorrhage. There are no findings of an acute ischemic infarction. Postsurgical changes of the orbits Normal visualized paranasal sinuses. CT/Brain/Head without Contrast IMPRESSION: Scalp hematoma overlying the right parietal bone without acute fracture or intracranial bleed Approach white matter ischemic changes Electronically Signed: Davin Matos MD at 18:56 EST ,
--- NOTE | 2021-09-28 17:50 | EDS_ITS ---
HPI <ZOHREH VELAZQUEZ - Last Filed: 09/28/21 19:18> History of Present Illness Chief Complaint: Head Injury Detail of Chief Complaint: I fell on the ice and hit my head Informant: patient Onset/Context/Timing Onset: Today Mechanism/Context: Fall Associated Symptoms Associated Symptoms: Negative for Parasthesias, Weakness, Loss of consciousness and Amnesia Narrative Narrative: Patient slipped on ice just outside her house about 2 hours [employer]ISTANT [employer]. Patient remembers all events of the fall and denies LOC. Patient was able to get up and walk into the house. The patient noticed a hematoma on her superior posterior scalp and came to the ED for evaluation. Patient denies blurred vision or headache. Notes pain at site of hematoma but did not take any medication for pain and does not wish to have pain medication. Patient denies nausea. Patient is not on any anticoagulant or antiplatelet medications. [facility] <ZOHREH VELAZQUEZ - Last Filed: 09/28/21 19:18> [facility] Medical History (Updated 09/28/21 @ 19:[address] Corinne Lynn MD) Abnormal heart rhythm Chronic lymphocytic leukemia Eczema Hyperlipidemia Hypertension Psoriasis Home Medications cholecalciferol (vitamin D3) [Vitamin D3] 1,000 unit PO DAILY 09/26/15 [History Last Taken 07/12/16] multivitamin with folic acid [Thera] 1 tab PO DAILY 09/26/15 [History Last Taken 07/12/16] simvastatin 10 mg PO DAILY 02/24/18 [History Last Taken Unknown] fluticasone propionate 1 spray NASAL DAILY 09/05/18 [History Last Taken Unknown] losartan 100 mg PO DAILY 05/31/19 [History Last Taken Unknown] Hydrochlorothiazide 12.5 mg PO DAILY 10/25/19 [History Last Taken Unknown] ferrous sulfate 325 mg (65 mg iron) tablet,delayed release 325 mg PO DAILY 04/16/21 [History Last Taken Unknown] metoprolol tartrate 25 mg tablet 12.5 mg PO BID 04/16/21 [History Last Taken Unknown] ibrutinib 420 mg tablet See Rx Instructions .ROUTE .COMPLEX #28 tablet 07/01/21 [Rx Last Taken Unknown] azithromycin 250 mg tablet 250 mg PO QDAY #6 tab 07/16/21 [Rx Last Taken Unknown] Allergy/AdvReac Type Severity Reaction Status Date / Time meloxicam AdvReac Intermediate Swelling Verified 09/28/21 17:27 aspirin AdvReac thin skin Verified 09/28/21 17:27 Family History Mother Ovarian cancer Colon cancer Father Kidney disease Surgical History History of cataract surgery History of cholecystectomy History of foot surgery History of sinus surgery History of sinus surgery Social History Smoking Status: Never smoker ROS <ZOHREH VELAZQUEZ - Last Filed: 09/28/21 19:18> ROS ED Constitutional Constitutional ED: Denies chills or fever(s) Eyes Eyes: Denies blurry vision or change in vision ENT ENT ED: Denies sore throat Cardiovascular Cardiovascular: Denies chest pain Respiratory/Chest Respiratory/Chest: Denies dyspnea Gastrointestinal Gastrointestinal: Denies nausea or vomiting Musculoskeletal Musculoskeletal: Denies myalgias Integumentary Denies Abrasions Neurologic Neurologic: Denies headache(s) Hematologic/Lymphatic Hematologic/Lymphatic: Reports easy bruising EXAM <ZOHREH VELAZQUEZ - Last Filed: 09/28/21 19:18> Physical Exam Const Vital Signs: 09/28/21 17:23 09/28/21 17:55 Temperature 96.7 F L Temperature Source Temporal Pulse Rate 86 Respiratory Rate 15 Respiratory Effort Normal Non-Labored Respiratory Depth Normal Respiratory Pattern Normal Blood Pressure 152/67 H Blood Pressure Mean 95 Pulse Ox 98 Oxygen Delivery Method Room Air Positive well nourished and well developed General Appearance ED: well developed HEENT Throat: other Other Details: 3 cm hematoma to superior posterior scalp. No abrasion otherwise. Eyes PERRL and EOMs intact bilaterally Neck full ROM General: Negative for tenderness Resp normal respiratory effort and clear to auscultation bilaterally Cardio regular rhythm Rate: regular rate GI normal to inspection, nondistended, normoactive bowel sounds Back/Spine normal to inspection Extremity normal to inspection Neuro oriented x3, moves all extremities, no focal motor deficits and no sensory deficits noted Kameron Coma Scale: document GCS findings Spontaneous Obeys Commands Oriented 15 Sensorium / Orientation: alert Motor Exam: strength 5/5 throughout Psych mental status grossly normal and thought process normal Skin no rashes or lesions noted <Dr. Corinne Lynn MD - Last Filed: 09/29/21 00:17> Physical Exam Const Vital Signs: 09/28/21 17:23 09/28/21 17:55 Temperature 96.7 F L Temperature Source Temporal Pulse Rate 86 Respiratory Rate 15 Respiratory Effort Normal Non-Labored Respiratory Depth Normal Respiratory Pattern Normal Blood Pressure 152/67 H Blood Pressure Mean 95 Pulse Ox 98 Oxygen Delivery Method Room Air [facility] <ZOHREH VELAZQUEZ - Last Filed: 09/28/21 19:18> [facility] Narrative Medical decision making narrative: Non contrast head CT ordered. Radiography Diagnostic Testing: Clinical Impression(s) from Imaging Studies Brain CT 09/28/21 17:48 IMPRESSION: Scalp hematoma overlying the right parietal bone without acute fracture or intracranial bleed Approach white matter ischemic changes Electronically Signed: Davin Matos MD at 18:56 EST , Treatment and Re-Evaluation Comments:: CT of brain is negative for fracture or bleed. On re-evaluation patient is alert. Results discussed with patient and friend at bedside. Home care reviewed, return instructions given. <Dr. Corinne Lynn MD - Last Filed: 09/29/21 00:17> [facility] Radiography Diagnostic Testing: Clinical Impression(s) from Imaging Studies Brain CT 09/28/21 17:48 IMPRESSION: Scalp hematoma overlying the right parietal bone without acute fracture or intracranial bleed Approach white matter ischemic changes Electronically Signed: Davin Matos MD at 18:56 EST , Treatment and Re-Evaluation Comments:: Patient seen and evaluated with [employer] student. Note reviewed and endorsed. Patient presents after fall on ice approximately 2 hours prior to arrival. She fell backward striking the back of her head. No loss of consciousness. She is not on anticoagulant. She does have a hematoma noted to the posterior scalp and this concerned her. Patient sitting upright in bed no acute distress. Head neck examination reveals scalp hematoma over the posterior parietal scalp on the right. No laceration noted. No C-spine tenderness. Heart regular rate and rhythm. Lung sounds are clear. Abdomen is soft and nontender. Neuro exam is normal. CT scan of the head obtained and remarkable only for scalp hematoma. No acute intracranial findings noted. Patient discharged with reassurance. Return instructions provided. Discharge Plan Triage Chief Complaint: Head Injury ED Provider: Corinne Lynn Dx/Rx/DC Orders Clinical Impression: Closed head injury, Hematoma of scalp Instructions: ED Scalp Contusion, ED Head Injury (Adult) Prescriptions: No Action ferrous sulfate 325 mg (65 mg iron) tablet,delayed release (DR/EC) 325 mg PO DAILY RF: 0 azithromycin 250 mg tablet 250 mg PO QDAY Qty: 6 RF: 0 cholecalciferol (vitamin D3) [Vitamin D3] 1,000 UNIT tablet 1,000 unit PO DAILY RF: 0 multivitamin with folic acid [Thera] 1 TABLET tablet 1 tab PO DAILY RF: 0 simvastatin 10 MG tablet 10 mg PO DAILY RF: 0 fluticasone propionate 1 SPRAY spray,suspension 1 spray NASAL DAILY RF: 0 losartan 25 MG tablet 100 mg PO DAILY RF: 0 Hydrochlorothiazide 12.5 mg PO DAILY RF: 0 metoprolol tartrate 25 mg tablet 12.5 mg PO BID RF: 0 Imbruvica 420 mg tablet See Rx Instructions .ROUTE .COMPLEX Qty: 28 RF: 12 Primary Care Provider: Gail Lopes Referrals: Gail Lopes MD [Primary Care Provider] - 1-2 Weeks Disposition Disposition: Home, Self Care Discharge Date/Time: 09/28/21 19:15
== END 2021-09-28 19:15 | disposition home or self-care (01) ==
PROVIDERS: Emergency Provider Emergency Medicine; PCP Internal Medicine; Visit Provider Emergency Medicine
DX: S00.03XA Contusion of scalp, initial encounter (principal); W00.0XXA Fall on same level due to ice and snow, initial encounter; E78.5 Hyperlipidemia, unspecified; I10 Essential (primary) hypertension; Y93.9 Activity, unspecified; Y92.9 Unspecified place or not applicable; Z85.6 Personal history of leukemia; L40.9 Psoriasis, unspecified; Z79.899 Other long term (current) drug therapy
CPT/HCPCS: 70450; 99282

== ENCOUNTER 2022-02-14 23:03 | Emergency (ER) | payer MEDICARE, OTHER, SELFPAY ==
--- NOTE | 2022-02-14 00:25 | RAD_ITS ---
EXAM: XR RIGHT KNEE COMPLETE, 4 OR MORE VIEWS CLINICAL INDICATION: Injury/Pain TECHNIQUE: Four or more views of the right knee. This report was created using [employer] report generation technology. COMPARISON: None. FINDINGS: BONES/JOINTS: Unremarkable. No acute fracture. No subluxation. Normal alignment. Preservation of the joint space. No sclerotic or destructive changes observed. SOFT TISSUES: Unremarkable. No soft tissue swelling or gas. No radiopaque foreign body. RAD/Knee 4 or More Views IMPRESSION: Negative right knee x-rays. Electronically Signed: Franklin Mcdonough MD at 0:56 EDT ,
[2022-02-14 23:05] VITALS: BP 144/57; PULSE 71; RESP 16; TEMP 36.3; O2SAT 99; BMI 31.0
--- NOTE | 2022-02-14 23:20 | ED.VIS.LOWEX ---
HPI History of Present Illness HPI Narrative: Patient presents with pain behind her right knee that became worse tonight. Patient states she is having difficulty bearing weight due to the pain. Patient states she was able to do her normal daily activities today however the pain became worse tonight and she is unable to bear weight. Patient denies any trauma or injury. Patient states she has had pain behind her knee for the past couple months. Patient describes her pain as aching. Patient states her pain is worse with movement and weightbearing. Patient denies any paresthesias or weakness. Patient denies any calf pain. Patient denies any shortness of breath or cough. Chief Complaint: Lower Extremity Injury Informant: patient Onset/Context/Timing Onset: Month(s) Context: Gradual Onset Timing: Continuous Quality of Pain: Aching Location: Right posterior knee Worsened by: Weightbearing, movement Relieved by: Nothing Associated Symptoms Associated Symptoms: Negative for Parasthesia, Weakness or Loss of Funtion [facility] Medical History Abnormal heart rhythm Chronic lymphocytic leukemia Eczema Hyperlipidemia Hypertension Psoriasis Home Medications cholecalciferol (vitamin D3) 25 mcg (1,000 unit) tablet (Vitamin D3) 1,000 unit PO DAILY vitamin 09/26/15 [History Last Taken 07/12/16] multivitamin with folic acid 400 mcg tablet (Thera) 1 tab PO DAILY vitamin 09/26/15 [History Last Taken 07/12/16] simvastatin 10 mg tablet 10 mg PO QHS cholesterol 02/24/18 [History Last Taken Unknown] fluticasone propionate 50 mcg/actuation nasal spray,suspension 1 spray DAILY PRN Congestion 09/05/18 [History Last Taken Unknown] losartan 25 mg tablet 100 mg PO DAILY blood pressure 05/31/19 [History Last Taken Unknown] Hydrochlorothiazide 12.5 mg PO DAILY diuretic 10/25/19 [History Last Taken Unknown] metoprolol tartrate 25 mg tablet 12.5 mg PO BID 04/16/21 [History Last Taken Unknown] amlodipine 2.5 mg tablet 2.5 mg PO DAILY 02/14/22 [History Last Taken Unknown] ibrutinib 420 mg tablet (Imbruvica) 420 mg PO DAILY 02/14/22 [History Last Taken Unknown] hydrocodone-acetaminophen 5-325mg 5mg-325mg 1 tab PO Q6H PRN PRN Pain 3 days #12 TABLETS 02/15/22 [Rx Last Taken Unknown] Allergy/AdvReac Type Severity Reaction Status Date / Time meloxicam AdvReac Intermediate Swelling Verified 09/30/21 10:22 aspirin AdvReac thin skin Verified 09/30/21 10:22 Family History Mother Ovarian cancer Colon cancer Father Kidney disease Surgical History History of cataract surgery History of cholecystectomy History of foot surgery History of sinus surgery History of sinus surgery Social History Smoking Status: Never smoker ROS ROS ED Constitutional Constitutional ED: Denies chills or fever(s) Eyes Eyes: Denies blurry vision or change in vision ENT ENT ED: Denies rhinorrhea or sore throat Cardiovascular Cardiovascular: Denies chest pain or palpitations Respiratory/Chest Respiratory/Chest: Denies cough or dyspnea Gastrointestinal Gastrointestinal: Denies nausea or vomiting Genitourinary Genitourinary ED: Denies dysuria or hematuria Musculoskeletal Musculoskeletal: Denies back pain or neck pain Integumentary Denies abscess or rash Neurologic Neurologic: Denies headache(s) or weakness Allergic/Immunologic Allergic/Immunologic ED: Denies mouth swelling or urticaria EXAM Physical Exam Const Vital Signs: 02/14/22 23:05 Temperature 97.4 F L Temperature Source Oral Pulse Rate 71 Respiratory Rate 16 Blood Pressure 144/57 H Blood Pressure Mean 86 Pulse Ox 99 Oxygen Delivery Method Room Air Positive well nourished and well developed General Appearance ED: well developed and NAD HEENT Reports moist mucous membranes Neck full ROM and supple Resp normal respiratory effort and clear to auscultation bilaterally Cardio regular rate and regular rhythm GI non-tender and non-distended Palpation: soft Extremity Extremity Narrative: There is tenderness palpation of the right popliteal fossa. There is limited range of motion of the right knee. There is no effusion. There is no deformity noted. There is no calf tenderness. Pedal pulses are equal bilaterally. Sensation was intact to light touch bilaterally in the lower extremities. Neuro oriented x3, CN's II-XII intact bilaterally, moves all extremities and no sensory deficits noted Sensorium / Orientation: alert Motor Exam: strength 5/5 throughout MDM MDM MDM Narrative Medical decision making narrative: Patient was given a dose of [place] here. X-rays of the right knee were obtained. There are 4 views. On my interpretation, there is no acute fracture or dislocation. There is no soft tissue swelling. Radiologist also interpreted the x-rays and agrees. CBC shows a leukocytosis of 34.8. This is consistent with prior results and her history of CLL. D-dimer was 0.64. This is normal when adjusted for age. Basic metabolic profile shows a BUN of 38 and creatinine of 1.39. These are consistent with prior results. Patient was able to ambulate with a walker to the bedside commode. Patient states she wants to go home. Patient states she has a walker at home. I offered admission to the hospital for placement in a [place] [facility] for rehab and therapy. Patient declined this and states she would prefer to go home. Patient was given a prescription for Oxford. Patient was instructed use ice to the area. Patient was instructed to keep the leg elevated. Patient was instructed to use her walker at home. Patient understood and was agreeable with the plan. All questions were answered. Lab Data Labs: Laboratory Results - last 24 hr 02/14/22 02/14/22 02/14/22 13:39 13:39 13:39 WBC 34.8 H* RBC 3.99 L Hgb 11.7 L Hct 37.8 MCV 94.7 MCH 29.3 MCHC 31.0 L RDW Std Deviation 51.8 H RDW Coeff of Yolie 14.8 H Plt Count 178 MPV 12.5 H Immature Gran % (Auto) 0.300 Neut % (Auto) 14.0 L Lymph % (Auto) 82.0 H [place] % (Auto) 3.2 Eos % (Auto) 0.3 Baso % (Auto) 0.2 Absolute Neuts (auto) 4.9 Absolute Lymphs (auto) 28.54 H Nucleated RBC % 0.1 Diff Path Review May foll Anisocytosis 1+ D-Dimer Quant (PE/DVT) 0.64 H* Sodium 139 Potassium 4.6 Chloride 106 Carbon Dioxide 28.0 Anion Gap 5 BUN 38 H Creatinine 1.39 H Estim Creat Clear Calc 28.34 Est GFR (MDRD) Af Amer 47 L Est GFR (MDRD) Non-Af 39 L BUN/Creatinine Ratio 27.3 H Glucose 97 Calcium 9.0 Radiography Diagnostic Testing: Clinical Impression(s) from Imaging Studies Knee X-Ray 02/14/22 00:25 IMPRESSION: Negative right knee x-rays. Electronically Signed: Franklin Mcdonough MD at 0:56 EDT , Discharge Plan Triage Chief Complaint: Lower Extremity Injury ED Provider: Krunal Figueroa Dx/Rx/DC Orders Clinical Impression: Posterior right knee pain, Chronic lymphocytic leukemia Instructions: ED Knee Pain of Uncertain Cause Prescriptions: New hydrocodone-acetaminophen [hydrocodone-acetaminophen] 1 TABLET tablet 1 tab PO Q6H PRN PRN (Reason: Pain) 3 Days Qty: 12 0RF No Action cholecalciferol (vitamin D3) [Vitamin D3] 1,000 UNIT tablet 1,000 unit PO DAILY Label Comments: supplement multivitamin with folic acid [Thera] 1 TABLET tablet 1 tab PO DAILY Label Comments: vitamin simvastatin 10 MG tablet 10 mg PO QHS fluticasone propionate 1 SPRAY spray,suspension 1 spray NASAL DAILY PRN (Reason: Congestion) losartan 25 MG tablet 100 mg PO DAILY Hydrochlorothiazide 12.5 mg PO DAILY metoprolol tartrate 25 mg tablet 12.5 mg PO BID amlodipine 2.5 mg tablet 2.5 mg PO DAILY Imbruvica 420 mg tablet 420 mg PO DAILY Rx Instructions: TAKE 1 TABLET BY MOUTH ONCE DAILY WITH A FULL GLASS OF WATER Primary Care Provider: Gail Lopes Referrals: Gail Lopes MD [Primary Care Provider] - 3-5 Days Disposition Disposition: Home, Self Care
[2022-02-14] MEDS: HYDROcodone Bitartrate/Apap 5/325 Tablet PO (23:35)
[2022-02-14 23:50] LABS: Absolute Lymphocyte Count 28.54 X10^3/uL (0.83-4.51); Absolute Neutrophil Count 4.9 X10^3/uL (2.0-7.7); Basophil# 0.06 X10^3/uL; Basophil% 0.2 % (0-1); Eosinophil# 0.11 X10^3/uL; Eosinophils% 0.3 % (0-5); Hematocrit 37.8 % (37-47); Hemoglobin 11.7 g/dL (12.0-15.0); Lymphocyte # 28.54 X10^3/ul (0.83-4.51); Mean Corpuscular Hgb 29.3 pg (27.0-32.0); Mean Corpuscular Volume 94.7 fL (81-99); Mean Platelet Vol. 12.5 fl (6.2-12.0); Monocyte% 3.2 % (0-10); NRBC Flagged by Analyzer 0.1 % (0-5); Neutrophil # 4.91 X10^3/uL (2.7-7.7); POSITIVE COUNT YES; POSITIVE DIFFERENTIAL YES; Platelet Count 178 K/mm3 (150-450); RBC Distribution Width CV 14.8 % (11.6-14.6); RBC Distribution Width SD 51.8 fl (35.1-43.9); Red Blood Count 3.99 M/mm3 (4.2-5.4); White Blood Count 34.8 K/mm3 (4.4-11.0)
[2022-02-14 23:58] LABS: Anion Gap 5 (5-15); BUN 38 mg/dL (7-18); BUN/Creat Ratio 27.3 RATIO (10-20); Chloride 106 mmol/L (98-107); Creatinine, Serum 1.39 mg/dL (0.55-1.02); EST Glomerular Filtration Rate 39 mL/min (>60); Est Glom Filt Rate - Afr Amer 47 mL/min (>60); Estimated Creatinine Clearance 28.34 ml/min; Glucose 97 mg/dL (74-106); Potassium 4.6 mmol/L (3.5-5.1); Sodium Level 139 mmol/L (136-145)
[2022-02-15 00:03] LABS: Differential Indicated SCAN CRITERIA MET
[2022-02-15 00:12] LABS: D-Dimer Quantitative (DVT/PE) 0.64 FEU/ug/m (0.27-0.49)
[2022-02-15 00:16] LABS: Anisocytosis 1+
[2022-02-15 02:07] VITALS: PULSE 68; RESP 17; O2SAT 99
[2022-02-18 07:16] LABS: Pathologist Review Reviewed
== END 2022-02-15 02:08 | disposition home or self-care (01) ==
PROVIDERS: Emergency Provider Emergency Medicine; PCP Internal Medicine; Visit Provider Emergency Medicine
DX: M25.561 Pain in right knee (principal); C91.10 Chronic lymphocytic leukemia of B-cell type not having achieved remission; I10 Essential (primary) hypertension; E78.5 Hyperlipidemia, unspecified; L40.9 Psoriasis, unspecified; Z79.899 Other long term (current) drug therapy
CPT/HCPCS: 73564; 80048; 85025; 85379; 99284; A4216

== ENCOUNTER → 2022-06-09 | Outpatient (CLI) | payer MEDICARE, OTHER, SELFPAY ==
--- NOTE | 2022-06-09 13:44 | RAD_ITS ---
STUDY: X-RAY - RIGHT HAND REASON FOR EXAM: Female, 81 years old. R hand, swelling TECHNIQUE: 3 view(s) of the hand. COMPARISON: None. FINDINGS: Normal radiocarpal articulation. Normal distal radioulnar joint. Normal visualized carpal bones. Normal carpal articulations There is degenerative arthrosis of the carpometacarpal (CMC) articulation of the thumb. Normal second through fifth carpometacarpal joints. Normal metacarpi. There is degenerative arthrosis of the metacarpophalangeal (MCP) joints. Normal interphalangeal joint of the thumb. Normal proximal and distal phalanges of the thumb. There is degenerative arthrosis of the metacarpophalangeal (MCP) joints. PIP and DIP joint arthrosis without subchondral changes, most affected joint is the DIP joint of the second digit. No demonstrated fracture The soft tissue structures are unremarkable. RAD/Hand Min 3 Views IMPRESSION: Degenerative joint disease of the hand and wrist, as described above. Electronically Signed: Fausto Lucero MD at 14:22 EDT ,
--- NOTE | 2022-06-09 13:44 | RAD_ITS ---
STUDY: X-RAY - LEFT HAND REASON FOR EXAM: Female, 81 years old. R hand, swelling TECHNIQUE: 3 view(s) of the hand. COMPARISON: None. FINDINGS: Normal radiocarpal articulation. Normal distal radioulnar joint. Normal visualized carpal bones. Normal carpal articulations Normal carpometacarpal articulation of the thumb. Normal second through fifth carpometacarpal joints. Normal metacarpi. Normal metacarpophalangeal joint of the thumb. Normal interphalangeal joint of the thumb. Normal proximal and distal phalanges of the thumb. Normal metacarpophalangeal joints of the second through fifth fingers. Diffuse degenerative changes in the PIP and DIP joints with subchondral erosions noted in the DIP joints of the second and third digits. The most affected joint is the PIP joint of the fourth digit where there is subluxation and obliteration of the joint space with soft tissue swelling. No demonstrated phalangeal fracture The soft tissue structures are unremarkable. RAD/Hand Min 3 Views IMPRESSION: Degenerative joint disease of the hand, as described above. Electronically Signed: Fausto Lucero MD at 14:26 EDT ,
== END | disposition home or self-care (01) ==
LOC: RAD 13:41
PROVIDERS: PCP Internal Medicine; Referring Provider Internal Medicine Medical Oncology; Visit Provider Internal Medicine Medical Oncology
DX: M19.041 Primary osteoarthritis, right hand (principal); C91.10 Chronic lymphocytic leukemia of B-cell type not having achieved remission
CPT/HCPCS: 36415; 73130; 80053; 83615; 85025

== ENCOUNTER 2022-09-24 17:53 | Inpatient (IN) | payer MEDICARE, OTHER, SELFPAY ==
[2022-09-24] VITALS (7 sets, daily range): BP systolic 104–126; BP diastolic 46–55; PULSE 71–100; RESP 14–20; TEMP 37–39.3; O2SAT 95–97; BMI 29.2
--- NOTE | 2022-09-24 19:34 | ED.VIS.GI ---
HPI HPI - GI History of Present Illness Chief Complaint: Nausea/Vomiting/Diarrhea Detail of Chief Complaint: Vomiting diarrhea for around a week. Fever. Informant: patient Abdominal Pain/Flank Pain Onset: Days Context: Gradual Onset Timing: Continuous Nausea/Vomiting/Emesis GI Symptom: Positive for Nausea and Vomiting Diarrhea/Melena/Hematochezia GI Symptom: Positive for Diarrhea Onset: Days Stool Quality: Positive for Watery Severity: Mild Associated Symptoms Associated Symptoms: Negative for Dysuria, Frequency or Hematuria Narrative Narrative: 81-year-old female history of CLL and hypertension. Prior lap jaya denies any other abdominal surgeries. Patient states that on last Wednesday she is started having nausea, vomiting and diarrhea. She is also had a fever. She was seen at the [facility] in [place] on Wednesday. She states she has not gotten any better. She really denies any abdominal pain. No dysuria. Mild cough. Denies any shortness of breath. Denies recent hospitalization. States she feels dehydrated. Prior similar symptoms: No Recent Illness/Hospitalization: No PFSH PFSH Medical History Abnormal heart rhythm Chronic lymphocytic leukemia Eczema Elevated serum creatinine Hyperlipidemia Hypertension Psoriasis Home Medications cholecalciferol (vitamin D3) 25 mcg (1,000 unit) tablet (Vitamin D3) 1,000 unit PO DAILY vitamin 09/26/15 [History Last Taken 07/12/16] multivitamin with folic acid 400 mcg tablet (Thera) 1 tab PO DAILY vitamin 09/26/15 [History Last Taken 07/12/16] simvastatin 10 mg tablet 10 mg PO QHS cholesterol 02/24/18 [History Last Taken Unknown] fluticasone propionate 50 mcg/actuation nasal spray,suspension 1 spray DAILY PRN Congestion 09/05/18 [History Last Taken Unknown] losartan 25 mg tablet 100 mg PO DAILY blood pressure 05/31/19 [History Last Taken Unknown] metoprolol tartrate 25 mg tablet 12.5 mg PO BID 04/16/21 [History Last Taken Unknown] amlodipine 2.5 mg tablet 2.5 mg PO DAILY 02/14/22 [History Last Taken Unknown] ibrutinib 420 mg tablet (Imbruvica) 420 mg PO DAILY #28 tabs 07/06/22 [Rx Last Taken Unknown] Allergy/AdvReac Type Severity Reaction Status Date / Time meloxicam AdvReac Intermediate Swelling Verified 09/15/22 13:31 aspirin AdvReac thin skin Verified 09/15/22 13:31 Family History Mother Ovarian cancer Colon cancer Father Kidney disease Surgical History History of cataract surgery History of cholecystectomy History of foot surgery History of sinus surgery History of sinus surgery Social History Smoking Status: Never smoker ROS ROS ED ROS Narrative Nausea, vomiting, diarrhea and fever. Review of Systems ROS Unobtainable: Denies due to encephalopathy Constitutional Constitutional ED: Reports fever(s) ENT ENT ED: Denies ear pain Cardiovascular Cardiovascular: Denies chest pain Respiratory/Chest Respiratory/Chest: Reports cough; Denies dyspnea Gastrointestinal Gastrointestinal: Reports diarrhea, nausea and vomiting; Denies abdominal pain, constipation or melena Genitourinary Genitourinary ED: Denies dysuria or hematuria Musculoskeletal Musculoskeletal: Denies arthralgias Integumentary Denies abscess Neurologic Neurologic: Denies headache(s) Psychiatric Psychiatric: Denies anxiety Endocrine Endocrinology: Denies polydipsia Hematologic/Lymphatic Hematologic/Lymphatic: Denies easy bleeding Allergic/Immunologic Allergic/Immunologic ED: Denies mouth swelling or tongue swelling EXAM Physical Exam Narrative Exam Narrative: 81 female vital signs are stable. She does have a fever 100.8. She looks dehydrated. She currently does not look septic. H EENT exam dry mucous membranes. Patient generally looks weak. Neck nontender no JVD. No lymphadenopathy. Lungs clear to auscultation bilaterally. Heart regular rhythm rate about 100 no murmur. Abdomen is soft nondistended normal bowel sounds no peritoneal signs. Nontender. No hernia or mass. No distention. Moving all 4 extremities. Calves nontender without edema or cords. Skin without rashes. Back nontender. Neurologically she is awake alert with no focal motor deficits. Const Vital Signs: 09/24/22 17:55 09/24/22 19:06 09/24/22 19:53 Temperature 98.7 F 102.8 F H Temperature Source Temporal Oral Pulse Rate 100 Respiratory Rate 14 Blood Pressure 126/55 H Blood Pressure Mean 78 Pulse Ox 96 95 Oxygen Delivery Method Room Air Room Air 09/24/22 21:15 02/16/23 21:43 09/24/22 21:48 Temperature 98.6 F 98.6 F Temperature Source Oral Oral Pulse Rate 71 72 Respiratory Rate 20 H 20 H Blood Pressure 104/46 L 106/49 L Blood Pressure Mean 65 68 Pulse Ox 97 97 Oxygen Delivery Method Room Air Room Air Positive well nourished and well developed; Negative for obese, cachectic, contractures or unkempt General Appearance ED: well developed and NAD; Negative for unkempt, cachectic, contractures or pallor Nutritional Appearance: Negative for cachectic or obese HEENT Reports dry mucous membranes; Denies moist mucous membranes normocephalic and atraumatic; Negative for trauma or tenderness Mouth ED: Yes dry mucous membranes Mouth: dry mucous membranes Eyes PERRL and EOMs intact bilaterally General Eye ED: Negative for pale conjunctiva or scleral icterus Neck no lymphadenopathy, supple and no JVD General: Negative for tenderness Carotids: Negative for other Lymph Lymphatic: Negative for other Resp normal respiratory effort and clear to auscultation bilaterally Effort and Inspection: Negative for respiratory distress Auscultation: Negative for rales, rhonchi or wheezes Cardio regular rate, regular rhythm, S1 normal heart sound, S2 normal heart sound and no murmurs Rate: Negative for bradycardia or tachycardic Rhythm: Negative for abnormal rhythm GI non-tender, non-distended and no masses Inspection: Negative for abdominal distention Auscultation: normoactive bowel sounds Palpation: soft; Negative for tender, guarding, rigid, hepatomegaly, splenomegaly, hernia, mass, pulsatile mass or rebound tenderness present Back/Spine no CVA tenderness General Back: Negative for CVA tenderness Cervical Spine: Negative for cervical spine tenderness Thoracic Spine / Upper Back: Negative for thoracic spinal tenderness Lumbar Spine / Lower Back: Negative for lumbar spinal tenderness Coccyx: Negative for other Extremity full ROM General Extremety ED: Negative for edema or tenderness General Extremity: Negative for edema Neuro CN's II-XII intact bilaterally and moves all extremities Sensorium / Orientation: alert, oriented to person, oriented to place and oriented to time; Negative for orientation impaired, confused, lethargic or stuporous Motor Exam: strength 5/5 throughout Psych mental status grossly normal and thought process normal Appearance: Negative for unkempt Attitude: No agitated Mood & Affect: Negative for depressed, anxious or tearful Skin no wounds General Skin Exam: Negative for jaundice or pallor Lesions: no lesions Rashes: no rashes Trauma: Negative for abrasion Nails: Negative for discolored MDM MDM MDM Narrative Medical decision making narrative: 81-year-old female with nausea vomiting diarrhea and fever for about a week. Clinically looks dehydrated. She will be treated with IV fluids. Zofran for nausea. Tylenol for her fever. Labs will be obtained. Currently she needs no imaging. It was considered but she has [place] no abdominal pain. I am getting a chest x-ray due to the fever to ensure she did not have pneumonia. She also have COVID and influenza test done. Repeat exam patient is doing better at 9:10 PM. Still looks ill. I have discussed labs with both her and her family. She has a chronic leukocytosis from CLL. A chronic anemia from the same. She has acute on chronic renal insufficiency I suspect secondary to some dehydration tonight. And I am concerned she has a UTI. She will be started on antibiotic Rocephin. Cultures have been sent. I will speak to the hospitalist about admission. Lab Data Attestation: I reviewed the patient's lab results. Lab results narrative: Chest x-ray unremarkable. White count 19.9. H&H of 10.5 and 31.9. Platelets 232. Patient does have CLL so not surprised she has an elevated white count. PT and PTT are 16.2 and 35. Her sodium is 131. Her gap is 12. Her BUN is elevated at 48 her creatinine is 1.73. Glucose of 113. Liver enzymes are unremarkable other than alkaline phosphatase of 179. Lactic acid is normal at 0.8. Urinalysis is cloudy with positive nitrites. Also 25-50 white cells and 1+ bacteria. A culture will be sent. She will be started on a short acute UTI. I did review the patient's old labs she has a baseline leukocytosis. She has a baseline anemia. She has renal insufficiency but this is acute on chronic. Consistent with her clinically appearing dehydration. Labs: Laboratory Results - last 24 hr 09/24/22 09/24/22 09/24/22 19:45 19:45 19:45 WBC 19.9 H RBC 3.78 L Hgb 10.5 L Hct 31.9 L MCV 84.4 MCH 27.8 MCHC 32.9 RDW Std Deviation 46.0 H RDW Coeff of Yolie 15.0 H Plt Count 232 MPV 12.1 H Immature Gran % (Auto) 2.100 H Neut % (Auto) 29.5 L Lymph % (Auto) 61.8 H [place] % (Auto) 6.3 Eos % (Auto) 0.0 Baso % (Auto) 0.3 Absolute Neuts (auto) 5.9 Absolute Lymphs (auto) 12.31 H Nucleated RBC % 0 Differential Comment SCANNED PT 16.2 H INR 1.3 APTT 35.0 Sodium 131 L Potassium 3.6 Chloride 100 Carbon Dioxide 19.0 L Anion Gap 12 BUN 48 H Creatinine 1.73 H Estim Creat Clear Calc 22.77 Est GFR (MDRD) Af Amer 37 L Est GFR (MDRD) Non-Af 30 L BUN/Creatinine Ratio 27.7 H Glucose 113 H Lactic Acid Calcium 7.8 L Total Bilirubin 0.70 AST 51 H ALT 41 Alkaline Phosphatase 179 H Total Protein 5.1 L Albumin 2.5 L Globulin 2.6 Albumin/Globulin Ratio 1.0 Urine Color Urine Clarity Urine pH Ur Specific [place] Urine Protein Urine Glucose (UA) Urine Ketones Urine Occult Blood Urine Nitrite Urine Bilirubin Urine Urobilinogen Ur Leukocyte Esterase Urine RBC Urine WBC Ur Squamous Epith Cells Urine Bacteria Urine Mucus 09/24/22 09/24/22 19:45 20:04 WBC RBC Hgb Hct MCV MCH MCHC RDW Std Deviation RDW Coeff of Yolie Plt Count MPV Immature Gran % (Auto) Neut % (Auto) Lymph % (Auto) [place] % (Auto) Eos % (Auto) Baso % (Auto) Absolute Neuts (auto) Absolute Lymphs (auto) Nucleated RBC % Differential Comment PT INR APTT Sodium Potassium Chloride Carbon Dioxide Anion Gap BUN Creatinine Estim Creat Clear Calc Est GFR (MDRD) Af Amer Est GFR (MDRD) Non-Af BUN/Creatinine Ratio Glucose Lactic Acid 0.8 Calcium Total Bilirubin AST ALT Alkaline Phosphatase Total Protein Albumin Globulin Albumin/Globulin Ratio Urine Color Yellow Urine Clarity Cloudy Urine pH 5.0 Ur Specific [place] 1.005 Urine Protein 30 H Urine Glucose (UA) Normal Urine Ketones Negative Urine Occult Blood 150 H Urine Nitrite Positive H Urine Bilirubin Negative Urine Urobilinogen Normal Ur Leukocyte Esterase 500 H Urine RBC 0-5 SEEN Urine WBC 25-50 SEEN Ur Squamous Epith Cells 0 SEEN Urine Bacteria 1+ Urine Mucus 0 SEEN Radiography Diagnostic Testing: Clinical Impression(s) from Imaging Studies Chest X-Ray 09/24/22 19:45 IMPRESSION: No radiographic evidence of acute cardiopulmonary disease. Electronically Signed: Fan Hernández MD at 20:34 EST , Chest x-ray, portable, single view interpreted both by myself and the radiologist shows no acute abnormality. Normal cardiac silhouette. No infiltrates. Discharge Plan Dx/Rx/DC Orders Clinical Impression: Chronic lymphocytic leukemia, Acute dehydration, Acute kidney injury, Acute UTI, Nausea, vomiting and diarrhea, SIRS (systemic inflammatory response syndrome) Disposition Disposition: Acute Care [facility]
--- NOTE | 2022-09-24 19:45 | RAD_ITS ---
EXAM: XR CHEST, 1 VIEW CLINICAL INDICATION: fever TECHNIQUE: Frontal view of the chest. This report was created using [employer] report generation technology. COMPARISON: 08/02/2020 FINDINGS: LUNGS AND PLEURAL SPACES: Unremarkable. No consolidation or edema. No pneumothorax. No effusion. HEART: Unremarkable. Cardiac silhouette not enlarged. MEDIASTINUM: Central airways and mediastinal contour are unremarkable. BONES/JOINTS: Unremarkable. SOFT TISSUES: Unremarkable. RAD/Chest 1 View (Portable) IMPRESSION: No radiographic evidence of acute cardiopulmonary disease. Electronically Signed: Fan Hernández MD at 20:34 EST ,
[2022-09-24] MEDS: 0.9% Normal Saline 1,000 ML 999 ML IV ×2 (19:51→21:34)
[2022-09-24] MEDS: Acetaminophen 325 MG Tablet 650 MG PO (19:51)
[2022-09-24] MEDS: Ondansetron 4 MG/2 ML Vial IV (19:51)
[2022-09-24 20:04] LABS: Absolute Lymphocyte Count 12.31 X10^3/uL (0.83-4.51); Absolute Neutrophil Count 5.9 X10^3/uL (2.0-7.7); Basophil# 0.05 X10^3/uL; Basophil% 0.3 % (0-1); Hematocrit 31.9 % (37-47); Hemoglobin 10.5 g/dL (12.0-15.0); Lymphocyte # 12.31 X10^3/ul (0.83-4.51); Lymphocyte % 61.8 % (19-41); Mean Corp Hgb Conc 32.9 g/dL (32-36); Mean Corpuscular Hgb 27.8 pg (27.0-32.0); Mean Corpuscular Volume 84.4 fL (81-99); Mean Platelet Vol. 12.1 fl (6.2-12.0); Monocyte# 1.26 X10^3/uL; Monocyte% 6.3 % (0-10); NRBC Flagged by Analyzer 0 % (0-5); Neutrophil # 5.89 X10^3/uL (2.7-7.7); Neutrophil % 29.5 % (47-70); POSITIVE DIFFERENTIAL YES; POSITIVE MORPHOLOGY YES; Platelet Count 232 K/mm3 (150-450); Red Blood Count 3.78 M/mm3 (4.2-5.4); White Blood Count 19.9 K/mm3 (4.4-11.0)
[2022-09-24 20:11] LABS: Mucous, Urine 0 SEEN /hpf (<or=2+); Squamous Epithelial Cells - UA 0 SEEN /hpf (5-10)
[2022-09-24 20:19] LABS: AST(SGOT) 51 U/L (15-37); Alanine Aminotransfer ALT/SGPT 41 U/L (13-56); Albumin, Serum 2.5 g/dL (3.2-5.0); Alkaline Phosphatase 179 U/L (45-117); Anion Gap 12 (5-15); BUN 48 mg/dL (7-18); BUN/Creat Ratio 27.7 RATIO (10-20); Calcium,Total 7.8 mg/dL (8.5-10.1); Chloride 100 mmol/L (98-107); Creatinine, Serum 1.73 mg/dL (0.55-1.02); EST Glomerular Filtration Rate 30 mL/min (>60); Est Glom Filt Rate - Afr Amer 37 mL/min (>60); Estimated Creatinine Clearance 22.77 ml/min; Globulin 2.6 g/dL (2.2-4.2); Glucose 113 mg/dL (74-106); Potassium 3.6 mmol/L (3.5-5.1); Protein, Total 5.1 g/dL (6.4-8.2); Sodium Level 131 mmol/L (136-145)
[2022-09-24 20:20] LABS: Lactic Acid 0.8 mmol/L (0.4-1.9)
[2022-09-24 20:58] LABS: Color, Urine Yellow (Yellow); Glucose, Dipstick Normal (Normal); Ketone-Dipstick Negative (Negative); Leukocyte Esterase-Dipstick 500 /ul (Negative); Nitrite-Dipstick Positive (Negative); Occult Blood-Urine 150 /ul (Negative); Protein-Dipstick 30 mg/dl (Negative); Specific Gravity, Urine 1.005 (1.002-1.030); Urine Bilirubin Dipstick Negative (Negative); Urine Clarity Cloudy (Clear); Urine Urobilinogen Normal (Normal)
[2022-09-24 20:59] LABS: Differential Indicated SCAN CRITERIA MET; International Normalized Ratio 1.3; Prothrombin Time (Protime)PT. 16.2 SECONDS (11.7-14.9)
[2022-09-24 21:13] LABS: Bacteria 1+ /hpf (None Seen); Red Blood Cells-Urine 0-5 SEEN /hpf (0-5); White Blood Cells 25-50 SEEN /hpf (0-5)
[2022-09-24 21:15] LABS: Differential Comment SCANNED
[2022-09-24] MEDS: Ceftriaxone 1 GM/50 ML BAG IV (22:06)
[2022-09-25] VITALS (8 sets, daily range): BP systolic 116–137; BP diastolic 47–64; PULSE 64–88; RESP 16–18; TEMP 36.4–38.2; O2SAT 96–100; BMI 29.5
--- NOTE | 2022-09-25 03:28 | HP.PCM.HOS_ITS ---
HPI - General General Date of Admission: 09/25/22 Date of Service: 09/25/22 Chief Complaint: GI upset HPI Narrative CAT BACA, is a 81 F with history of CLL maintained on ibrutinib and hypertension who presented to [facility] 09/24/2022 with nausea, vomiting, diarrhea for 1 week. She was seen at the [facility] in [place] on Wednesday and it appears supportive care was advised but she did not begin to feel better. Due to the progressive nature and poor p.o. intake she presented to the hospital and was found to be dehydrated and had a fever of 102.8 and UA concerning for UTI. Hospitalist contacted for admission. Patient evaluated at bedside and reported the nausea/vomiting/diarrhea for 1 week with no clear p recipitating factor. When asked if she had a fever at home she said probably but she had not measured it. Not having significant abdominal tenderness but has had fairly poor p.o. intake. Denies sick contacts, denies other complaints at time of exam. [facility] Medical History Abnormal heart rhythm Chronic lymphocytic leukemia Eczema Elevated serum creatinine Hyperlipidemia Hypertension Psoriasis Home Medications cholecalciferol (vitamin D3) 25 mcg (1,000 unit) tablet (Vitamin D3) 1,000 unit PO DAILY vitamin 09/26/15 [History Last Taken 07/12/16] multivitamin with folic acid 400 mcg tablet (Thera) 1 tab PO DAILY vitamin 09/26/15 [History Last Taken 07/12/16] simvastatin 10 mg tablet 10 mg PO QHS cholesterol 02/24/18 [History Last Taken Unknown] fluticasone propionate 50 mcg/actuation nasal spray,suspension 1 spray DAILY PRN Congestion 09/05/18 [History Last Taken Unknown] losartan 25 mg tablet 100 mg PO DAILY blood pressure 05/31/19 [History Last Taken Unknown] metoprolol tartrate 25 mg tablet 12.5 mg PO BID 04/16/21 [History Last Taken Unknown] amlodipine 2.5 mg tablet 2.5 mg PO DAILY 02/14/22 [History Last Taken Unknown] ibrutinib 420 mg tablet (Imbruvica) 420 mg PO DAILY #28 tabs 07/06/22 [Rx Last Taken Unknown] Allergy/AdvReac Type Severity Reaction Status Date / Time meloxicam AdvReac Intermediate Swelling Verified 09/15/22 13:31 aspirin AdvReac thin skin Verified 09/15/22 13:31 Family History Mother Ovarian cancer Colon cancer Father Kidney disease Surgical History History of cataract surgery History of cholecystectomy History of foot surgery History of sinus surgery History of sinus surgery Social History Smoking Status: Never smoker ROS ROS Narrative General: Positive fever HENT: Denies headache, denies stuffy nose, denies sore throat EYES: Denies changes in vision Resp: Denies cough, denies shortness of breath Cardiac: Denies chest pain GI: Denies abdominal pain, has had nausea, vomiting, diarrhea : Denies changes in urination Extremity: Denies swelling MSK: Denies weakness Neuro: Denies any numbness, denies tingling Heme: Denies any bleeding or bruising Skin: Denies rashes Psychiatric: No complaints voiced Vital Signs Vital Signs Vital Signs: 09/24/22 17:55 09/24/22 19:06 09/24/22 19:53 Temperature 98.7 F 102.8 F H Temperature Source Temporal Oral Pulse Rate 100 Respiratory Rate 14 Respiratory Effort Respiratory Depth Respiratory Pattern Blood Pressure 126/55 H Blood Pressure Mean 78 Blood Pressure Source Pulse Ox 96 95 Oxygen Delivery Method Room Air Room Air 09/24/22 21:15 09/24/22 21:43 09/24/22 21:48 Temperature 98.6 F 98.6 F Temperature Source Oral Oral Pulse Rate 71 72 Respiratory Rate 20 H 20 H Respiratory Effort Respiratory Depth Respiratory Pattern Blood Pressure 104/46 L 106/49 L Blood Pressure Mean 65 68 Blood Pressure Source Pulse Ox 97 97 Oxygen Delivery Method Room Air Room Air 09/24/22 22:47 09/25/22 01:47 09/25/22 01:48 Temperature 97.9 F Temperature Source Oral Pulse Rate 78 65 Respiratory Rate 15 16 Respiratory Effort Normal Non-Labored Respiratory Depth Normal Respiratory Pattern Normal Blood Pressure 123/51 H 124/64 H Blood Pressure Mean 75 84 Blood Pressure Source Monitor Pulse Ox 95 99 Oxygen Delivery Method Room Air Room Air Room Air Weight Weight: 77.9 kg Body Mass Index (BMI) 29.5 Physical Exam Narrative General: Alert, oriented, appears to not feel well HEENT: Atraumatic, normocephalic Eyes: Anicteric, normal conjunctiva, extraocular movements grossly intact Neck: Supple Respiratory: Clear to auscultation bilaterally, normal respiratory effort Cardiovascular: Regular rate and rhythm GI: Soft, nontender, nondistended Extremities: No edema Musculoskeletal: Moving all extremities Neuro: No overt focal neurological deficits Skin: No rashes appreciated Psych: Cooperative Results Lab / Micro Data Result Diagrams: 09/24/22 19:45 09/24/22 19:45 Labs: Laboratory Results - last 24 hr 09/24/22 19:45: WBC 19.9 H, RBC 3.78 L, Hgb 10.5 L, Hct 31.9 L, MCV 84.4, MCH 27.8, MCHC 32.9, RDW Std Deviation 46.0 H, RDW Coeff of Yolie 15.0 H, Plt Count 232, MPV 12.1 H, Immature Gran % (Auto) 2.100 H, Neut % (Auto) 29.5 L, Lymph % (Auto) 61.8 H, [place] % (Auto) 6.3, Eos % (Auto) 0.0, Baso % (Auto) 0.3, Absolute Neuts (auto) 5.9, Absolute Lymphs (auto) 12.31 H, Nucleated RBC % 0, Differential Comment SCANNED 09/24/22 19:45: PT 16.2 H, INR 1.3, APTT 35.0 09/24/22 19:45: Sodium 131 L, Potassium 3.6, Chloride 100, Carbon Dioxide 19.0 L , Anion Gap 12, BUN 48 H, Creatinine 1.73 H, Estim Creat Clear Calc 22.77, Est GFR (MDRD) Af Amer 37 L, Est GFR (MDRD) Non-Af 30 L, BUN/Creatinine Ratio 27.7 H , Glucose 113 H, Calcium 7.8 L, Total Bilirubin 0.70, AST 51 H, ALT 41, Alkaline Phosphatase 179 H, Total Protein 5.1 L, Albumin 2.5 L, Globulin 2.6, Albumin/Globulin Ratio 1.0 09/24/22 19:45: Lactic Acid 0.8 09/24/22 20:04: Urine Color Yellow, Urine Clarity Cloudy, Urine pH 5.0, Ur Spe cific [place] 1.005, Urine Protein 30 H, Urine Glucose (UA) Normal, Urine Ket ones Negative, Urine Occult Blood 150 H, Urine Nitrite Positive H, Urine Bilirubin Negative, Urine Urobilinogen Normal, Ur Leukocyte Esterase 500 H, Urine RBC 0-5 SEEN, Urine WBC 25-50 SEEN, Ur Squamous Epith Cells 0 SEEN, Urine Bacteria 1+, Urine Mucus 0 SEEN Micro: Microbiology 09/24/22 20:20 Nasal Secretion SARS-CoV-2 & FLU Antigen (Rapid) - Final Radiology Impression Chest X-Ray 09/24/22 19:45 IMPRESSION: No radiographic evidence of acute cardiopulmonary disease. Electronically Signed: Fan Hernández MD at 20:34 EST , Assessment & Plan Assessment/Plan (1) Acute kidney injury: (2) Nausea, vomiting and diarrhea: (3) Acute UTI: (4) Chronic lymphocytic leukemia: PLAN: Plan #Nausea, vomiting, diarrhea Did have temperature in ED of 102.8 and white count of 19.9 however does chronically have elevated white count which is variable but left shift noted Yossi, I's and O's, daily weight transitional diet as she had some improvement of her nausea Did receive fluids in the ED, will continue gentle maintenance fluids throughout the morning pending her ability to tolerate p.o. We will obtain stool studies and given risk factors and labs will start on usman thromycin for 3 doses #UTI Left shift and elevated white blood cell count but do not feel she is septic UA suggestive of UTI Cultures pending Continue Rocephin #KAYLEY on CKD stage IIIb Likely due to dehydration Creatinine 1.73 on presentation with baseline closer to 1.3 Status post 2 L in the ED and will begin gentle maintenance fluids #CLL On ibrutinib chronically, no recent changes that explain the diarrhea Also chronically has leukocytosis Follows with Dr. Story on outpatient basis #DVT ppx: Heparin Suyapa Marr MD Time spent in the patient's overall evaluation,decision-making process, review of diagnostic data, adjustment of management, discussion with other providers, nursing nursing and ancillary staff involved in patient's care documentation, 60 minutes Charges/Coding Visit Charges Inpatient E&M: 91305 Init Hosp L2
[2022-09-25] MEDS: 0.9% Normal Saline 1,000 ML 75 ML IV ×2 (03:47→14:39)
[2022-09-25] MEDS: Azithromycin 250 MG Tablet 500 MG PO ×2 (03:52→20:43)
[2022-09-25] MEDS: Heparin Injection (Vial) 5,000 UNIT/ML VIAL 5000 UNIT SC ×3 (05:30→20:42)
[2022-09-25 06:40] LABS: Absolute Lymphocyte Count 12.59 X10^3/uL (0.83-4.51); Absolute Neutrophil Count 3.6 X10^3/uL (2.0-7.7); Basophil# 0.04 X10^3/uL; Basophil% 0.2 % (0-1); Eosinophil# 0.02 X10^3/uL; Eosinophils% 0.1 % (0-5); Hematocrit 30.9 % (37-47); Hemoglobin 10.1 g/dL (12.0-15.0); Lymphocyte # 12.59 X10^3/ul (0.83-4.51); Lymphocyte % 70.9 % (19-41); Mean Corp Hgb Conc 32.7 g/dL (32-36); Mean Corpuscular Hgb 27.9 pg (27.0-32.0); Mean Corpuscular Volume 85.4 fL (81-99); Monocyte# 1.26 X10^3/uL; Monocyte% 7.1 % (0-10); NRBC Flagged by Analyzer 0 % (0-5); Neutrophil # 3.64 X10^3/uL (2.7-7.7); Neutrophil % 20.5 % (47-70); POSITIVE DIFFERENTIAL YES; POSITIVE MORPHOLOGY YES; Platelet Count 202 K/mm3 (150-450); RBC Distribution Width CV 15.3 % (11.6-14.6); RBC Distribution Width SD 47.8 fl (35.1-43.9); Red Blood Count 3.62 M/mm3 (4.2-5.4); White Blood Count 17.8 K/mm3 (4.4-11.0)
[2022-09-25 06:42] LABS: Differential Indicated SCAN CRITERIA MET
[2022-09-25 07:01] LABS: Differential Comment SCANNED; Reactive Lymphocyte 1+
[2022-09-25 07:12] LABS: ALB/GLOB Ratio 0.9 RATIO (0.9-2.4); AST(SGOT) 46 U/L (15-37); Alanine Aminotransfer ALT/SGPT 37 U/L (13-56); Albumin, Serum 2.2 g/dL (3.2-5.0); Alkaline Phosphatase 155 U/L (45-117); Anion Gap 8 (5-15); BUN 42 mg/dL (7-18); BUN/Creat Ratio 30.7 RATIO (10-20); Calcium,Total 7.5 mg/dL (8.5-10.1); Chloride 107 mmol/L (98-107); Creatinine, Serum 1.37 mg/dL (0.55-1.02); EST Glomerular Filtration Rate 39 mL/min (>60); Est Glom Filt Rate - Afr Amer 48 mL/min (>60); Estimated Creatinine Clearance 28.75 ml/min; Globulin 2.5 g/dL (2.2-4.2); Glucose 83 mg/dL (74-106); Potassium 3.3 mmol/L (3.5-5.1); Protein, Total 4.7 g/dL (6.4-8.2); Sodium Level 136 mmol/L (136-145)
[2022-09-25] MEDS: Metoprolol Tartrate 25 MG Tablet 12.5 MG PO ×2 (09:47→20:43)
[2022-09-25] MEDS: Cholecalciferol (VIT D3) 25 MCG TABLET (1,000 UNITS) PO (09:50)
--- NOTE | 2022-09-25 12:15 | CASEMGMT ---
RN?CM?SMOOTH PLATER?CM?to room to meet with patient for initial transition planning/care coordination?assessment.?RN?CM?introduced self and role at [facility].? Pt voices understanding and consents to?assessment?at this time.? Pt resting in bed in no distress at this time.? Pt is A/O at this time and answers all questions appropriately.?? Care providers, pharmacy, and demographics verified/updated at this time. PCP: Dr Lopes Specialists: Dr Story-oncology, Dottie/PAULINE-cardiology @ [facility] specialty Preferred Pharmacy: [facility] Insurance:MCR, [employer] Prescription Benefit:?Yes Living Will/HPOA:?Has both LW and HCPOA, who is her sister, Andra Nam LNOK: Sister/POAAndra. Brother, Barrett Living Arrangements: Lives alone in one-story home w/one step to enter. Pt states does okay with the stairs. Indep w/ADL's and IADL's and manages her own medications. Transportation:?Pt states drives self and states no transportation concerns at this time.?Step-son, can assist w/transportation if needed and will take her home @ d/c. DME: ? Denies using any DME and denies needs.? HHC/SNF: No hx of either and no needs identified. 6-clicks is 24 w/indication that pt is safe to discharge home alone. Pt wishes to return home and states has no concerns with going home at time of discharge.?CM?to follow for any discharge planning/needs.? Pt voices no concerns/needs at this time.? Advised pt to ask for?CM?if any questions/concerns/needs arise.? Voices understanding. PLAN:??Home w/discharge plans in place. Ben HERBERTN?RN?CM
[2022-09-25] MEDS: Acetaminophen 325 MG Tablet 650 MG PO (19:43)
[2022-09-25] MEDS: Atorvastatin Calcium 10 MG Tablet 5 MG PO (20:42)
[2022-09-25] MEDS: Ceftriaxone 1 GM/50 ML BAG IV (20:44)
[2022-09-26] MEDS: 0.9% Normal Saline 1,000 ML 75 ML IV (02:47)
[2022-09-26 02:56] VITALS: BP 105/50; PULSE 60; RESP 16; TEMP 36.6; O2SAT 94
[2022-09-26 04:41] LABS: Absolute Lymphocyte Count 12.33 X10^3/uL (0.83-4.51); Absolute Neutrophil Count 3.1 X10^3/uL (2.0-7.7); Basophil# 0.05 X10^3/uL; Basophil% 0.3 % (0-1); Eosinophil# 0.03 X10^3/uL; Eosinophils% 0.2 % (0-5); Hematocrit 32.9 % (37-47); Hemoglobin 10.3 g/dL (12.0-15.0); Lymphocyte # 12.33 X10^3/ul (0.83-4.51); Lymphocyte % 74.8 % (19-41); Mean Corp Hgb Conc 31.3 g/dL (32-36); Mean Corpuscular Hgb 27.2 pg (27.0-32.0); Mean Corpuscular Volume 86.8 fL (81-99); Mean Platelet Vol. 11.6 fl (6.2-12.0); Monocyte% 4.9 % (0-10); NRBC Flagged by Analyzer 0.1 % (0-5); Neutrophil # 3.12 X10^3/uL (2.7-7.7); Neutrophil % 18.9 % (47-70); POSITIVE DIFFERENTIAL YES; POSITIVE MORPHOLOGY YES; Platelet Count 234 K/mm3 (150-450); RBC Distribution Width CV 15.6 % (11.6-14.6); RBC Distribution Width SD 49.3 fl (35.1-43.9); Red Blood Count 3.79 M/mm3 (4.2-5.4); White Blood Count 16.5 K/mm3 (4.4-11.0)
[2022-09-26 05:06] LABS: Differential Indicated SCAN CRITERIA MET
[2022-09-26 05:18] LABS: Anion Gap 6 (5-15); BUN 25 mg/dL (7-18); BUN/Creat Ratio 24.5 RATIO (10-20); Calcium,Total 7.7 mg/dL (8.5-10.1); Chloride 109 mmol/L (98-107); Creatinine, Serum 1.02 mg/dL (0.55-1.02); EST Glomerular Filtration Rate 55 mL/min (>60); Est Glom Filt Rate - Afr Amer 67 mL/min (>60); Estimated Creatinine Clearance 38.62 ml/min; Glucose 82 mg/dL (74-106); Potassium 3.3 mmol/L (3.5-5.1); Sodium Level 138 mmol/L (136-145)
[2022-09-26] MEDS: Heparin Injection (Vial) 5,000 UNIT/ML VIAL 5000 UNIT SC (05:21)
[2022-09-26 06:22] LABS: Differential Comment SCANNED; Reactive Lymphocyte 1+; Smudge Cells RARE
[2022-09-26 07:53] LABS: Magnesium 2.2 mg/dL (1.6-2.6); Phosphorus 2.8 mg/dL (2.5-4.9)
[2022-09-26] MEDS: Ondansetron 4 MG/2 ML Vial IV (08:09)
[2022-09-26 08:57] VITALS: BP 113/50; PULSE 70; RESP 18; TEMP 36.7; O2SAT 95
[2022-09-26] MEDS: Cholecalciferol (VIT D3) 25 MCG TABLET (1,000 UNITS) PO (09:57)
[2022-09-26 10:00] VITALS: BP 113/50; PULSE 70
[2022-09-26] MEDS: Metoprolol Tartrate 25 MG Tablet 12.5 MG PO (10:00)
[2022-09-26] MEDS: Potassium Chloride Oral Tablet 20 MEQ 40 MEQ PO (10:00)
--- NOTE | 2022-09-26 13:48 | DCINST_ITS ---
Discharge Instructions Diet Discharge Diet: Low fat / Low cholesterol Activity Discharge Activity: Return to Normal Activity Dressing / Incision Call your doctor if you observe: Fever of 101 or Higher, Shortness of breath, Dizziness, Fainting spells, Swelling in the ankles, Chest pain and Increased palpitations (irregular heartbeat) Follow Up Care Test Results: Test results from this visit will be discussed in further detail at your follow- up appointment, if applicable. Discharge Plan Admission Admit Date/Time: 09/25/22 00:54 Attending Provider: Alexsander Breen Primary Care Provider: Gail Lopes Consulting Providers: Suyapa Marr Instructions Additional Instructions / Restrictions: Follow-up with your PCP in 3 to 5 days to obtain outpatient lab work to monitor your potassium and renal function. Discharge Orders/Prescriptions Prescriptions: New cephalexin 500 mg capsule 500 mg PO TID 5 Days Qty: 15 0RF ondansetron 4 mg tablet,disintegrating 4 mg PO Q8H PRN (Reason: nausea and vomiting) Qty: 7 0RF Continued cholecalciferol (vitamin D3) [Vitamin D3] 1,000 UNIT tablet 1,000 unit PO DAILY Label Comments: supplement multivitamin with folic acid [Thera] 1 TABLET tablet 1 tab PO DAILY Label Comments: vitamin simvastatin 10 MG tablet 10 mg PO QHS fluticasone propionate 1 SPRAY spray,suspension 1 spray NASAL DAILY PRN (Reason: Congestion) losartan 25 MG tablet 100 mg PO DAILY metoprolol tartrate 25 mg tablet 12.5 mg PO BID amlodipine 2.5 mg tablet 2.5 mg PO DAILY Imbruvica 420 mg tablet 420 mg PO DAILY Qty: 28 12RF Referrals / Follow Up: Gail Lopes MD [Primary Care Provider] - Within 1 Week Disposition Disposition (needs filled in before D/C Order can be placed): Home, Self Care
--- NOTE | 2022-09-26 13:54 | PCM.DC.SUM ---
Providers Date of Admission: 09/25/22 Primary Care Physician: Dr. Gail Lopes MD Reason For Visit: GI ILLNESS Diagnosis Discharge Diagnosis (1) Acute kidney injury: Status: Acute Code(s): N17.9 - Acute kidney failure, unspecified (2) Nausea, vomiting and diarrhea: Status: Acute Code(s): R11.2 - Nausea with vomiting, unspecified; R19.7 - Diarrhea, unspecified (3) Acute UTI: Status: Acute Code(s): N39.0 - Urinary tract infection, site not specified (4) Chronic lymphocytic leukemia: Status: Chronic Code(s): C91.10 - Chronic lymphocytic leukemia of B-cell type not having achieved remission Medications at Discharge Home Medications cholecalciferol (vitamin D3) 25 mcg (1,000 unit) tablet (Vitamin D3) 1,000 unit PO DAILY vitamin 09/26/15 multivitamin with folic acid 400 mcg tablet (Thera) 1 tab PO DAILY vitamin 09/26/15 simvastatin 10 mg tablet 10 mg PO QHS cholesterol 02/24/18 fluticasone propionate 50 mcg/actuation nasal spray,suspension 1 spray DAILY PRN Congestion 09/05/18 losartan 25 mg tablet 100 mg PO DAILY blood pressure 05/31/19 metoprolol tartrate 25 mg tablet 12.5 mg PO BID 04/16/21 amlodipine 2.5 mg tablet 2.5 mg PO DAILY 02/14/22 ibrutinib 420 mg tablet (Imbruvica) 420 mg PO DAILY #28 tabs 07/06/22 cephalexin 500 mg capsule 500 mg PO TID 5 days #15 caps 09/26/22 ondansetron 4 mg disintegrating tablet 4 mg PO Q8H PRN nausea and vomiting #7 tabs 09/26/22 Hospital Course Operations None Procedures None Summary of Care Provided Minutes Spent on Discharge: 38 Hospital Course: Per HPI: CAT BACA, is a 81 F with history of CLL maintained on ibrutinib and hypertension who presented to [facility] 09/24/2022 with nausea, vomiting, diarrhea for 1 week.? She was seen at the [facility] in [place] on Wednesday and it appears supportive care was advised but she did not begin to feel better.? Due to the progressive nature and poor p.o. intake she presented to the hospital and was found to be dehydrated and had a fever of 102.8 and UA concerning for UTI.? Hospitalist contacted for admission.? Patient evaluated at bedside and reported the nausea/vomiting/diarrhea for 1 week with no clear precipitating factor.? When asked if she had a fever at home she said probably but she had not measured it.? Not having significant abdominal tenderness but has had fairly poor p.o. intake.? Denies sick contacts, denies other complaints at time of exam. Hospital Course: 1. Nausea, vomiting, diarrhea likely from an Ecoli UTI/KAYLEY on CKD 3B?81-year-old female presented to the hospital with nausea, vomiting, diarrhea in the setting of a UTI. It was found based on urine culture that her UTI was a pansensitive E. coli and all of her symptoms improved with treatment of her UTI. Stool studies so far have been negative, C. difficile was also negative. Since her stool studies were negative her azithromycin was discontinued. She was discharged on 5 more days of p.o. Keflex 500 mg 3 times daily. I recommend that she follow-up with her PCP in 3 to 5 days for outpatient follow-up, her potassium was low on the day of discharge to 3.3 though was replaced. Mag and Phos are normal. Renal function improved from 1.73 on admission down to 1.02 but I do recommend outpatient monitoring for this as well. I discussed with her the plan for discharge today she expressed understanding of the risk benefits going home and would like to go home today. She improved faster than anticipated. 2. Hypertension, hyperlipidemia CLL are chronic medical conditions which complicate her care. Her home medications were continued where probe Physical Exam Narrative General: Alert, Oriented x3, Cooperative, No apparent distress HEENT: Atraumatic, PERRLA, EOMI, Normocephalic Oral: Moist Mucosa Neck: Supple, No JVD Lungs: Diminished, Normal air movement, No rhonchi, No wheeze, No rales Cardiovascular: Regular rate, Regular Rhythm, Normal S1, Normal S2, No murmurs Abdomen: Soft, Non Tender, Non-Distended, No Hepato-splenomegaly Extremities: No edema, Capillary Refill Less than 3 Seconds Skin: No rashes, No breakdown Musculoskeletal: No Tenderness to Palpation of Joints or Extremities Neurological: Cranial nerves II-XII grossly intact, Motor Exam 5/5 strength throughout, Sensory exam intact to light touch and pain Psych/Mental Status: Normal Affect, Appropriate Weight / BMI Weight Weight: 171 lb 11.841 oz Body Mass Index (BMI) 29.5 ABG / Lab / Microbiology Data Result Diagrams: 09/26/22 04:30 09/26/22 04:30 Laboratory: Laboratory Results - last 24 hr 09/26/22 04:30: WBC 16.5 H, RBC 3.79 L, Hgb 10.3 L, Hct 32.9 L, MCV 86.8, MCH 27.2, MCHC 31.3 L, RDW Std Deviation 49.3 H, RDW Coeff of Yolie 15.6 H, Plt Count 234, MPV 11.6, Immature Gran % (Auto) 0.900, Neut % (Auto) 18.9 L, Lymph % (Auto) 74.8 H, [place] % (Auto) 4.9, Eos % (Auto) 0.2, Baso % (Auto) 0.3, Absolute Neuts (auto) 3.1, Absolute Lymphs (auto) 12.33 H, Nucleated RBC % 0.1, Differential Comment SCANNED, Reactive Lymphocytes 1+, Smudge Cells RARE 09/26/22 04:30: Sodium 138, Potassium 3.3 L, Chloride 109 H, Carbon Dioxide 23.0, Anion Gap 6, BUN 25 H, Creatinine 1.02, Estim Creat Clear Calc 38.62, Est GFR (MDRD) Af Amer 67, Est GFR (MDRD) Non-Af 55 L, BUN/Creatinine Ratio 24.5 H, Glucose 82, Calcium 7.7 L 09/26/22 04:30: Phosphorus 2.8, Magnesium 2.2 Microbiology: Microbiology 09/24/22 20:04 Urine, Clean Catch Urine Culture - Final Escherichia coli 09/25/22 10:14 Stool Enteric Bacteriology - Final 09/24/22 20:20 Nasal Secretion SARS-CoV-2 & FLU Antigen (Rapid) - Final D/C Instructions Discharge Diet: Low fat / Low cholesterol Call your doctor if you observe: Fever of 101 or Higher, Shortness of breath, Dizziness, Fainting spells, Swelling in the ankles, Chest pain and Increased palpitations (irregular heartbeat) Meaningful Use Info Meaningful Use Diagnoses (Choose all that apply): None applicable Discharge Plan Admission Admit Date/Time: 09/25/22 00:54 Attending Provider: Alexsander Breen Primary Care Provider: Gail Lopes Consulting Providers: Suyapa Marr Instructions Additional Instructions / Restrictions: Follow-up with your PCP in 3 to 5 days to obtain outpatient lab work to monitor your potassium and renal function. Discharge Orders/Prescriptions Prescriptions: New cephalexin 500 mg capsule 500 mg PO TID 5 Days Qty: 15 0RF ondansetron 4 mg tablet,disintegrating 4 mg PO Q8H PRN (Reason: nausea and vomiting) Qty: 7 0RF Continued cholecalciferol (vitamin D3) [Vitamin D3] 1,000 UNIT tablet 1,000 unit PO DAILY Label Comments: supplement multivitamin with folic acid [Thera] 1 TABLET tablet 1 tab PO DAILY Label Comments: vitamin simvastatin 10 MG tablet 10 mg PO QHS fluticasone propionate 1 SPRAY spray,suspension 1 spray NASAL DAILY PRN (Reason: Congestion) losartan 25 MG tablet 100 mg PO DAILY metoprolol tartrate 25 mg tablet 12.5 mg PO BID amlodipine 2.5 mg tablet 2.5 mg PO DAILY Imbruvica 420 mg tablet 420 mg PO DAILY Qty: 28 12RF Referrals / Follow Up: Gail Lopes MD [Primary Care Provider] - Within 1 Week Disposition Disposition (needs filled in before D/C Order can be placed): Home, Self Care Charges/Coding Visit Charges Inpatient E&M: 81885 Disch Hosp >30min
[2022-09-26 14:00] VITALS: BP 140/61; PULSE 72; RESP 18; TEMP 36.6; O2SAT 100
[2022-09-26 15:15] VITALS: BP 140/61; PULSE 72; RESP 18; TEMP 36.6; O2SAT 100
== END 2022-09-26 16:07 | disposition home or self-care (01) | DRG 690 ==
LOC: ED 22:05 → MS3 09-25 00:59
PROVIDERS: Admitting Provider Internal Medicine; Emergency Provider Emergency Medicine; PCP Internal Medicine; Visit Provider Family Medicine
DX: N39.0 Urinary tract infection, site not specified (principal); N17.9 Acute kidney failure, unspecified; C91.10 Chronic lymphocytic leukemia of B-cell type not having achieved remission; D63.1 Anemia in chronic kidney disease; E78.5 Hyperlipidemia, unspecified; B96.20 Unspecified Escherichia coli [E. coli] as the cause of diseases classified elsewhere; N18.32 Chronic kidney disease, stage 3b; E86.0 Dehydration; I12.9 Hypertensive chronic kidney disease with stage 1 through stage 4 chronic kidney disease, or unspecified chronic kidney disease; R11.2 Nausea with vomiting, unspecified; R19.7 Diarrhea, unspecified; Z80.0 Family history of malignant neoplasm of digestive organs
CPT/HCPCS: 36415; 71045; 80048; 80053; 81001; 83605; 83735; 84100; 85025; 85610; 85730; 87040; 87077; 87086; 87088; 87186; 87428; 87493; 87506; 99285; J7030; A4216; J2405

== ENCOUNTER 2022-09-28 08:44 | Emergency (ER) | payer MEDICARE, OTHER, SELFPAY ==
[2022-09-28 08:45] VITALS: BP 133/48; PULSE 79; RESP 20; TEMP 36.6; O2SAT 97; BMI 30.5
--- NOTE | 2022-09-28 09:02 | EKG12_ITS ---
Test Reason : Blood Pressure : / mmHG Vent. Rate : 075 BPM Atrial Rate : 075 BPM P-R Int : 168 ms QRS Dur : 094 ms QT Int : 378 ms P-R-T Axes : 064 048 041 degrees QTc Int : 422 ms Normal sinus rhythm Normal ECG Confirmed by JANIYA SALAS, MOLLY ([id number]), videotape editor MELVIN GOODWIN ([id number]) on 09/29/2022 11:25:58 AM Referred By: KEESHA Confirmed By:MOLLY DENSON MD
--- NOTE | 2022-09-28 09:06 | EX.ED.DYSGE1 ---
HPI History of Present Illness Chief Complaint: General Illness Detail of Chief Complaint: Rapid heart rate and pheresis Informant: patient Onset/Context/Timing Onset: Today (Between 0400 and 0600) Context: Sudden Onset Timing: Intermittent Quality: Initially chills then hot and diaphoresis with rapid heart rate Location: Lying in bed Current Severity: Gone Maximum Severity: Moderate Worsened by: Patient speculates the antibiotics you prescribed for UTI Relieved by: Nothing Associated Symptoms Associated Symptoms: No other symptoms Narrative Narrative: Patient is a 81-year-old woman with history of CLL, basal cell carcinoma, lymph adenopathy, hyperlipidemia who was admitted on for acute kidney injury, nausea and vomiting and urinary tract infection. Patient was discharged on Wednesday. She was prescribed cephalexin 500 mg every 8 hours. Patient states this morning at 0400 she felt cold. She had chills. She turned on her electric blanket. She then noted that she had a rapid heart rate and was sweaty and felt warm. She also endorsed nausea without vomiting or diarrhea. She denied headache, visual, ocular auditory symptoms. She denied trouble with balance or coordination when she got up to feed her cats or take a shower. She denied chest discomfort. She complains of low back pain due to inactivity the past several days. She denies upper back pain. She denies paresthesia, anesthesia or motor weakness upper or lower extremity. She denies bruising easily. She denies myalgias or arthralgias. She denies joint swelling. Prior similar symptoms: No Recent Illness/Hospitalization: Yes [facility] Medical History Abnormal heart rhythm Chronic lymphocytic leukemia Eczema Elevated serum creatinine Hyperlipidemia Hypertension Psoriasis Home Medications cholecalciferol (vitamin D3) 25 mcg (1,000 unit) tablet (Vitamin D3) 1,000 unit PO DAILY vitamin 09/26/15 [History Last Taken 07/12/16] multivitamin with folic acid 400 mcg tablet (Thera) 1 tab PO DAILY vitamin 09/26/15 [History Last Taken 07/12/16] simvastatin 10 mg tablet 10 mg PO QHS cholesterol 02/24/18 [History Last Taken Unknown] fluticasone propionate 50 mcg/actuation nasal spray,suspension 1 spray DAILY PRN Congestion 09/05/18 [History Last Taken Unknown] losartan 25 mg tablet 100 mg PO DAILY blood pressure 05/31/19 [History Last Taken Unknown] metoprolol tartrate 25 mg tablet 12.5 mg PO BID 04/16/21 [History Last Taken Unknown] amlodipine 2.5 mg tablet 2.5 mg PO DAILY 02/14/22 [History Last Taken Unknown] ibrutinib 420 mg tablet (Imbruvica) 420 mg PO DAILY #28 tabs 07/06/22 [Rx Last Taken Unknown] cephalexin 500 mg capsule 500 mg PO TID 5 days #15 caps 09/26/22 [Rx Last Taken Unknown] ondansetron 4 mg disintegrating tablet 4 mg PO Q8H PRN nausea and vomiting #7 tabs 09/26/22 [Rx Last Taken Unknown] Allergy/AdvReac Type Severity Reaction Status Date / Time meloxicam AdvReac Intermediate Swelling Verified 09/15/22 13:31 aspirin AdvReac thin skin Verified 09/15/22 13:31 Family History Mother Ovarian cancer Colon cancer Father Kidney disease Surgical History History of cataract surgery History of cholecystectomy History of foot surgery History of sinus surgery History of sinus surgery Social History (Updated 09/28/22 @ 09:[address] Drake Alejandra MD) household members: none Smoking Status: Never smoker substance use type: does not use ROS ROS ED Constitutional Constitutional ED: Reports chills and sweats; Denies fever(s), subjective or weight loss Eyes Eyes: Denies blurry vision, change in vision or diplopia ENT ENT ED: Denies ear pain, rhinorrhea or sore throat Cardiovascular Cardiovascular: Denies chest pain, orthopnea, palpitations, paroxysmal nocturnal dyspnea or racing heartbeat Respiratory/Chest Respiratory/Chest: Denies cough, dyspnea, dyspnea on exertion, orthopnea or paroxysmal nocturnal dyspnea Gastrointestinal Gastrointestinal: Reports nausea; Denies abdominal pain, diarrhea, melena or vomiting Genitourinary Genitourinary ED: Denies dysuria, hematuria or urinary frequency Musculoskeletal Musculoskeletal: Reports back pain; Denies arthralgias, myalgias or neck pain Integumentary Denies abscess, Abrasions or rash Neurologic Neurologic: Denies headache(s), paresthesias or weakness Psychiatric Psychiatric: Reports anxiety; Denies depression Endocrine Endocrinology: Denies cold intolerance or heat intolerance Hematologic/Lymphatic Hematologic/Lymphatic: Reports lymphadenopathy; Denies easy bleeding or easy bruising Allergic/Immunologic Allergic/Immunologic ED: Denies mouth swelling, tongue swelling or urticaria EXAM Physical Exam Const Vital Signs: 09/28/22 08:45 09/28/22 08:50 Temperature 98 F Temperature Source Temporal Pulse Rate 79 Respiratory Rate 20 H Respiratory Effort Normal Non-Labored Blood Pressure 133/48 H Blood Pressure Mean 76 Pulse Ox 97 Oxygen Delivery Method Room Air Positive well nourished and well developed General Appearance ED: well developed and NAD; Negative for cyanotic, diaphoretic or pallor HEENT Reports moist mucous membranes HEENT Narrative: Head is atraumatic normocephalic. Ears are normal. Nares patent. Posterior pharynx is normal. Uvula is midline. Eyes PERRL and EOMs intact bilaterally General Eye ED: Negative for pale conjunctiva or scleral icterus Neck no lymphadenopathy, supple and no JVD Chest Wall inspection of chest normal and palpation of chest normal Resp normal respiratory effort and clear to auscultation bilaterally Cardio regular rate, regular rhythm, S1 normal heart sound, S2 normal heart sound and no murmurs GI normal to inspection, nondistended, normoactive bowel sounds, non-tender, non-distended and no masses; Negative for hepatosplenomegaly Auscultation: normoactive bowel sounds Palpation: soft Back/Spine no CVA tenderness Cervical Spine: Negative for cervical spine tenderness Thoracic Spine / Upper Back: Negative for thoracic spinal tenderness Lumbar Spine / Lower Back: Negative for lumbar spinal tenderness Extremity normal to inspection Extremity Narrative: There is no asymmetry, discoloration, leg vein distention, palpable cords tenderness on the distribution deep venous system General Extremety ED: Yes edema General Extremity: edema Neuro oriented x3, CN's II-XII intact bilaterally and no sensory deficits noted Sensorium / Orientation: alert Motor Exam: strength 5/5 throughout Psych mental status grossly normal Skin no rashes or lesions noted, no wounds and skin turgor normal General Skin Exam: elasticity normal; Negative for jaundice or pallor MDM MDM MDM Narrative Medical decision making narrative: Patient presents because of concern for reaction to antibiotics and was concerned something was wrong with her heart because of rapid heart rate. Patient has vague symptoms. This may be due to the fact that she was using electric blanket. Since she has a history of CLL recent admission for infection with acute kidney injury/failure we will obtain basic metabolic panel to assess electrolytes, CO2 anion gap and renal function. CBC was obtained to compare to recent admission results and evaluate for anemia and white count with differential. EKG was obtained that she complained of rapid heart rate. Prehospital EKG was reviewed and revealed a normal sinus rhythm with no acute ischemic changes. 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 She states her heart rate was 110 when she checked her blood pressure. Her blood pressure was slight elevated. She does have history of hypertension. She states she is compliant with her medication. As documented in the HPI narrative records from recent admission and discharge were reviewed. These were summarized. White count was 16.5 on September 26 with an H&H of 10.3 and 32.9. Basic metabolic panel was remarkable for a potassium of 3.3. BUN was slightly elevated 25 and creatinine was 1.02. With a negative work-up no hemodynamic instability no tachycardia during her ER course she was discharged home Lab Data Attestation: I reviewed the patient's lab results. Lab results narrative: White count is slightly elevated compared to most recent. Her white count is baseline. H&H is 9.8 and 30.0 which is slightly lower but within lab error. Basic metabolic panel is unremarkable. BUN is slightly elevated 21 with a BUN/creatinine ratio of 20.6. Labs: Laboratory Results - last 24 hr 09/28/22 09/28/22 09:20 09:20 WBC 17.4 H RBC 3.46 L Hgb 9.8 L Hct 30.0 L MCV 86.7 MCH 28.3 MCHC 32.7 RDW Std Deviation 49.6 H RDW Coeff of Yolie 15.7 H Plt Count 243 MPV 10.9 Immature Gran % (Auto) 1.400 H Neut % (Auto) 25.2 L Lymph % (Auto) 67.3 H [place] % (Auto) 5.8 Eos % (Auto) 0.0 Baso % (Auto) 0.3 Absolute Neuts (auto) 4.4 Absolute Lymphs (auto) 11.69 H Nucleated RBC % 0 Sodium 139 Potassium 4.0 Chloride 107 Carbon Dioxide 23.0 Anion Gap 9 BUN 21 H Creatinine 1.02 Estim Creat Clear Calc 38.62 Est GFR (MDRD) Af Amer 67 Est GFR (MDRD) Non-Af 55 L BUN/Creatinine Ratio 20.6 H Glucose 96 Calcium 8.3 L Rhythm Strip Rhythm Strip: Sinus Rhythm Rate: 80 Ectopy: None EKG Initial EKG: Attestation: I personally reviewed and interpreted this EKG as follows: Interpretation: Sinus Rhythm (The ventricular to 75. EKG is normal. SC interval is 168 ms. QS duration 94 ms. QT duration 378 ms. [place] is normal) Prior: Unchanged Discharge Plan Triage Chief Complaint: General Illness ED Provider: Drake Alejandra Dx/Rx/DC Orders Clinical Impression: Tachycardia, Chronic lymphocytic leukemia, Hypertension, Hyperlipidemia, Diaphoresis Instructions: ED About Arrhythmias Prescriptions: No Action cholecalciferol (vitamin D3) [Vitamin D3] 1,000 UNIT tablet 1,000 unit PO DAILY Label Comments: supplement multivitamin with folic acid [Thera] 1 TABLET tablet 1 tab PO DAILY Label Comments: vitamin simvastatin 10 MG tablet 10 mg PO QHS fluticasone propionate 1 SPRAY spray,suspension 1 spray NASAL DAILY PRN (Reason: Congestion) losartan 25 MG tablet 100 mg PO DAILY metoprolol tartrate 25 mg tablet 12.5 mg PO BID amlodipine 2.5 mg tablet 2.5 mg PO DAILY cephalexin 500 mg capsule 500 mg PO TID 5 Days Qty: 15 0RF ondansetron 4 mg tablet,disintegrating 4 mg PO Q8H PRN (Reason: nausea and vomiting) Qty: 7 0RF Imbruvica 420 mg tablet 420 mg PO DAILY Qty: 28 12RF Primary Care Provider: Gail Lopes Referrals: Gail Lopes MD [Primary Care Provider] - 1-2 Weeks Disposition Disposition: Home, Self Care
[2022-09-28 09:27] LABS: Absolute Lymphocyte Count 11.69 X10^3/uL (0.83-4.51); Absolute Neutrophil Count 4.4 X10^3/uL (2.0-7.7); Basophil# 0.05 X10^3/uL; Basophil% 0.3 % (0-1); Hemoglobin 9.8 g/dL (12.0-15.0); Lymphocyte # 11.69 X10^3/ul (0.83-4.51); Lymphocyte % 67.3 % (19-41); Mean Corp Hgb Conc 32.7 g/dL (32-36); Mean Corpuscular Hgb 28.3 pg (27.0-32.0); Mean Corpuscular Volume 86.7 fL (81-99); Mean Platelet Vol. 10.9 fl (6.2-12.0); Monocyte% 5.8 % (0-10); NRBC Flagged by Analyzer 0 % (0-5); Neutrophil # 4.38 X10^3/uL (2.7-7.7); Neutrophil % 25.2 % (47-70); POSITIVE DIFFERENTIAL YES; POSITIVE MORPHOLOGY YES; Platelet Count 243 K/mm3 (150-450); RBC Distribution Width CV 15.7 % (11.6-14.6); RBC Distribution Width SD 49.6 fl (35.1-43.9); Red Blood Count 3.46 M/mm3 (4.2-5.4); White Blood Count 17.4 K/mm3 (4.4-11.0)
[2022-09-28 09:34] LABS: Differential Indicated SCAN CRITERIA MET
[2022-09-28 09:45] LABS: Anion Gap 9 (5-15); BUN 21 mg/dL (7-18); BUN/Creat Ratio 20.6 RATIO (10-20); Calcium,Total 8.3 mg/dL (8.5-10.1); Chloride 107 mmol/L (98-107); Creatinine, Serum 1.02 mg/dL (0.55-1.02); EST Glomerular Filtration Rate 55 mL/min (>60); Est Glom Filt Rate - Afr Amer 67 mL/min (>60); Estimated Creatinine Clearance 38.62 ml/min; Glucose 96 mg/dL (74-106); Sodium Level 139 mmol/L (136-145)
[2022-09-28 10:30] LABS: Smudge Cells 1+
[2022-09-28 10:34] LABS: Ovalocyte 1+; Tear Drop Cell 1+
[2022-09-28 10:48] VITALS: BP 121/55; PULSE 72; RESP 20; O2SAT 100
[2022-09-29 14:51] LABS: Pathologist Review Reviewed
== END 2022-09-28 10:58 | disposition home or self-care (01) ==
PROVIDERS: Emergency Provider Emergency Medicine; PCP Internal Medicine; Visit Provider Emergency Medicine
DX: C91.10 Chronic lymphocytic leukemia of B-cell type not having achieved remission (principal); I10 Essential (primary) hypertension; E78.5 Hyperlipidemia, unspecified; R00.0 Tachycardia, unspecified; R61 Generalized hyperhidrosis; Z85.828 Personal history of other malignant neoplasm of skin; Z87.898 Personal history of other specified conditions; Z79.899 Other long term (current) drug therapy
CPT/HCPCS: 80048; 85025; 93005; 99285; A4216

== ENCOUNTER 2023-03-02 08:50 | Outpatient (RCR) | payer MEDICARE, OTHER, SELFPAY ==
[2023-03-02 09:08] VITALS: BP 142/58; PULSE 63; RESP 20; TEMP 35.9; BMI 28.6
--- NOTE | 2023-03-02 09:54 | HP.PCM_ITS ---
History of Present Illness Date of Service: 03/02/23 Chief Complaint: Traumatic wound, right medial calf History of Wound: This is an 82-year-old female who sustained a traumatic injury to her right medial calf on February 13, 2023. [place] she was struck by a stick which was laying on the ground, impacting the right medial calf, and creating a wound. She subsequently developed a cellulitis at the site, and was seen and evaluated at [facility] the [facility], where doxycycline 100 mg p.o. twice daily was prescribed for a 5-day course. The patient has been using antibiotic ointment topically. The wound has failed to heal, and she has been referred to the [facility] for evaluation and management. The patient has multiple pre-existing medical conditions, which are listed herein. Her history is negative for myocardial infarction, cerebrovascular accident, diabetes mellitus, and thyroid disease. She sleeps on a flat mattress at night. She is active, without limitation to ambulation. She has graduated compression stockings for daily wear, which were prescribed by her primary care physician. She is uncertain as to the degree of compression, and has been asked to bring the packaging with her to her next appointment. Her most recent laboratory results have been reviewed. [facility] Medical History Abnormal heart rhythm Chronic lymphocytic leukemia Diverticulosis Eczema Elevated serum creatinine Hyperlipidemia Hypertension Osteopenia after menopause Psoriasis Traumatic open wound of right lower leg Home Medications cholecalciferol (vitamin D3) 25 mcg (1,000 unit) tablet (Vitamin D3) 1,000 unit PO DAILY vitamin 09/26/15 [History Last Taken 03/02/23] multivitamin with folic acid 400 mcg tablet (Thera) 1 tab PO DAILY vitamin 09/26/15 [History Last Taken 07/12/16] simvastatin 10 mg tablet 10 mg PO QHS cholesterol 02/24/18 [History Last Taken Unknown] fluticasone propionate 50 mcg/actuation nasal spray,suspension 1 spray DAILY PRN Congestion 09/05/18 [History Last Taken Unknown] losartan 25 mg tablet 100 mg PO DAILY blood pressure 05/31/19 [History Last Taken Unknown] metoprolol tartrate 25 mg tablet 12.5 mg PO BID 04/16/21 [History Last Taken Unknown] amlodipine 2.5 mg tablet 2.5 mg PO DAILY 02/14/22 [History Last Taken Unknown] ibrutinib 420 mg tablet (Imbruvica) 420 mg PO DAILY #28 tabs 07/06/22 [Rx Last Taken 03/02/23] Allergy/AdvReac Type Severity Reaction Status Date / Time meloxicam AdvReac Intermediate Swelling Verified 12/09/22 14:00 aspirin AdvReac thin skin Verified 12/09/22 14:00 Family History Mother Ovarian cancer Colon cancer Father Kidney disease Surgical History History of appendectomy History of cataract surgery History of cholecystectomy History of D&C History of exploratory laparotomy History of foot surgery History of sinus surgery History of sinus surgery Social History household members: none Smoking Status: Never smoker substance use type: does not use Vital Signs Vital Signs Vital Signs: 03/02/23 09:08 Temperature 96.6 F L Temperature Source Temporal Pulse Rate 63 Respiratory Rate 20 H Blood Pressure 142/58 H Blood Pressure Mean 86 Blood Pressure Source Monitor Weight Weight: 166 lb 15.477 oz Body Mass Index (BMI) 28.6 Physical Exam Const alert, oriented x3, no apparent distress, average body habitus and well nourished Constitutional Narrative: The patient's BMI is 28.6 General Appearance: cooperative, comfortable, well kempt and well developed Orientation / Consciousness: awake, oriented to person, oriented to place and oriented to time HEENT normocephalic, head/scalp atraumatic and hearing grossly normal bilaterally Head and Scalp: normal to inspection, normocephalic and atraumatic External Ear: external ears normal Eyes PERRL, EOMs intact bilaterally and conjunctivae normal General Eye: normal appearance of both eyes Neck full ROM Resp normal respiratory effort, normal air movement, no retractions and no use of accessory muscles Effort and Inspection: able to speak in complete sentences and symmetric chest movement Extremity no calf tenderness General Extremity: Negative for clubbing or cyanosis Skin Wound Narrative: A traumatic wound is noted on the patient's right medial calf. Inspection reveals a large eschar. There is no periwound erythema. There is no sign of infection or cellulitis. There is a moderate amount of bioburden. Dimensions are documented elsewhere. Scattered varicose veins are noted in the patient's lower extremities bilaterally. Neuro oriented x3, CN's II-XII intact bilaterally, moves all extremities and no focal motor deficits Sensorium / Orientation: awake, alert, oriented to person, oriented to place and oriented to time Speech: speech normal Psych Appearance: grossly normal and appropriate Attitude: calm Activity / Motor Behavior: appropriate eye contact Speech: normal speech Mood & Affect: euthymic mood Thought Process: normal thought process Thought Content: normal thought content Attention / Concentration: attention grossly intact Debridement Note Debridement Note Wound debrided: Traumatic right medial calf wound Laterality: Right Type of Debridement: Excisional debridement Anesthesia Used: 5% Lidocaine Gel Depth: Down to and including healthy tissue and in the subcutaneous layer Percentage of wound debrided: 100 Instrument Used: 5mm curette Tissue Removed: Bioburden and eschar Severity: Fat Layer Exposed Amount of bleeding with debridement: Mild Bleeding Controlled with: Compression and gauze Patient tolerated procedure: Patient tolerated procedure well Debridement Free Text: The entirety of the eschar was removed, revealing a relatively superficial, healthy wound bed beneath. Post-Debridement Measurements and Additional Note: Post-Debridement Measurements/Treatment - Nurse 1 - General Ulcer Assessment Start: 03/02/23 09:06 Freq: Status: Active Protocol: LUCIO Activity Type Activity Date Activity User E-sign Co-sign Detail Recorded Client Recorded Date Recorded By Document 03/02/23 09:08 DL [id number] 03/02/23 09:20 DL 03/02/23 09:08 - Today's Visit Information Type of service Initial Visit Arrival Mode Ambulatory Transfer Assistance None Patient Identification Verified (Name & Yes ) Patient Requires Transmission-Based No Precautions Height and Weight Height 5 ft 4 in Weight 166 lb 15.477 oz Weight in Pounds 167.0 lbs Body Mass Index (BMI) 28.6 BMI Classification Overweight BSA - Celsa 1.81 Vital Signs Temperature (97.8 F-99.1 F) 96.6 F L Temperature Source Temporal Pulse Rate (60-100) 63 Pulse Location Monitor Respiratory Rate (12-18) 20 H Respiratory rate source Observation Blood Pressure (90/60-120/80) 142/58 H Blood Pressure Mean 86 Source Monitor Pain Scale: 0-10 Numeric Is Patient Pain Free? Yes Lower Extremity Assessment/ Foot Assessment/ Toe Nail Assessment Left -Popliteal Doppler Multiphasic -Posterior Tibial Palpable Yes -Posterior Tibial Doppler Multiphasic -Dorsalis Pedis Palpable Yes -Extremity Color Hemosiderin -Hair Growth on Legs No -Hair Growth on Toes No -Temperature of Extremity Cool -Capillary Refill Greater than 3 Seconds -Dependent Rubor No -Blanched when Elevated No -Lipodermatosclerosis No -Other Deformity No -Prior Foot Ulcer No -Charcot Joint No -Prior Amputation No -Thick Yes -Discolored Yes -Deformed Yes -Improper Length & Hygeine No Right -Posterior Tibial Palpable Yes -Posterior Tibial Doppler Multiphasic -Dorsalis Pedis Palpable Yes -Dorsalis Pedis Doppler Multiphasic -Extremity Color Hemosiderin -Hair Growth on Legs No -Hair Growth on Toes No -Temperature of Extremity Cool -Capillary Refill Less than 3 Seconds -Dependent Rubor No -Blanched when Elevated No -Lipodermatosclerosis No -Other Deformity No -Prior Foot Ulcer No -Charcot Joint No -Prior Amputation No -Thick Yes -Discolored Yes -Deformed Yes -Improper Length & Hygeine No Neuropathy Assessment Feet - Top Side and Bottom <Entered> (a) Communication Assessment Preferred language Sudanese Able to Read Yes Able to Write Yes Communication Tools None Right Hearing Abillity Normal Left Hearing Abillity Normal Visual Assistive Devices Glasses Teaching Assessment Preferences Verbal,Written, Demonstration Barriers to Learning None Readiness To Learn Good Willingness to Engage in Self Management Med Activies Anxiety Level Calm Cooperation Cooperative Perception Coherent Interest in Health Problem Asks Questions Education Importance Acknowledges Need Smoking Status Never smoker Is Patient Diabetic No Functional Assessment Recent Decline in Ability to Perform Denies Any Declines Culture/Roman Catholic/Field Sales Manager Cultural/Roman Catholic Needs that may affect No Treatment Plan Would you allow our hospital desktop publisher to No meet you for the purpose of spiritual/ emotional support? Field Sales Manager to contact place of cheondoism No Teaching: Wound Center Dressing Your Wound -Person Taught Patient Discharge Instructions -Person Taught Patient *Welcome to the Wound Center -Person Taught Patient (a) 1 - + WC - Nurse 1 - General Ulcer Measurement Start: 03/02/23 09:06 Freq: Status: Active Protocol: Activity Type Activity Date Activity User E-sign Co-sign Detail Recorded Client Recorded Date Recorded By Document 03/02/23 09:08 OPAL [id number] 03/02/23 09:20 OPAL 03/02/23 09:08 Wound Center Nurse 1 #1 R Med LE -Current Size (cm) - Length 2.4 -Current Size (cm) - Width 2.5 -Current Size (cm) - Depth 0.1 -Total Square Cm 6.00 -Photo Taken Yes -Classification - Thickness Unclassifiable (Eschar Covered ) -Exudate Amt None Present -Wound Margin Distinct, Outline Attached -Granulation Amt None Present (0 %) -Necrosis Amt Large (67-100%) -Necrotic Tissue Type Eschar -Structure Exposed N/A -Texture (Ni-wound Skin Appearance) Localized Edema ,Scarring -Moisture (Ni-wound Skin Appearance) No Abnormality -Color (Ni-wound Skin Appearance) Erythema -Temperature (Ni-wound Skin No Abnormality Appearance) (Pt Warm) -Tenderness on Palpation (Ni-wound No Skin Appearance) -Ulcer Cleansing Soap and Water -Foul Odor after Cleansing No -Anesthetic Used 5% Lidocaine Gel Right Calf (cm) 40 Right Ankle (cm) 26.5 Left Calf (cm) 39.2 Left Ankle (cm) 22.5 Assessment/Plan Assessment/Plan (1) Traumatic open wound of right lower leg: CODE(S): S81.801A - Unspecified open wound, right lower leg, initial encounter QUALIFIERS: Encounter type: initial encounter Qualified Code(s): S81.801A - Unspecified open wound, right lower leg, initial encounter (2) Chronic lymphocytic leukemia: CODE(S): C91.10 - Chronic lymphocytic leukemia of B-cell type not having achieved remission (3) Hypogammaglobulinemia: CODE(S): D80.1 - Nonfamilial hypogammaglobulinemia (4) Arthritis of hand, right: CODE(S): M19.041 - Primary osteoarthritis, right hand (5) Hyperlipidemia: CODE(S): E78.5 - Hyperlipidemia, unspecified (6) Hypertension: CODE(S): I10 - Essential (primary) hypertension (7) Over 65 years old: (8) History of basal cell carcinoma: CODE(S): Z85.828 - Personal history of other malignant neoplasm of skin (9) Diverticulosis: CODE(S): K57.90 - Diverticulosis of intestine, part unspecified, without perforation or abscess without bleeding (10) Osteopenia 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 The wound occurred on August 16, 2022. [place] walking [place], a wooden stick impacted the right medial calf, creating an open wound. She has been evaluated at an urgent care facility, and has completed a course of doxycycline 100 mg p.o. twice daily for 5 days. At the time of intake here, there is no sign of infection or cellulitis. Debridement revealed the presence of relatively pink, healthy wound bed. The patient has been instructed to elevate her lower extremities is much as possible, and to wear the graduated compression stockings which she possesses. She has been asked to bring the packaging for her compression stockings to her next appointment, such that the degree of compression can be verified. Activity has been encouraged. Prolonged idle sitting has been discouraged. Leg elevation has been encouraged, even during daytime hours. Her legs are to be elevated to heart level, or higher, is much as possible. We are to implement the use of Promogran topically, which be applied by the patient on a daily basis. The patient has been instructed in the appropriate means of application. Serial debridements are anticipated. The patient is to return in 1 week for reassessment. Total time: 48 minutes
== END 2023-03-08 23:59 | disposition home or self-care (01) ==
LOC: WC 08:50
PROVIDERS: PCP Internal Medicine; Visit Provider Surgery
DX: S81.801A Unspecified open wound, right lower leg, initial encounter (principal); C91.10 Chronic lymphocytic leukemia of B-cell type not having achieved remission; D80.1 Nonfamilial hypogammaglobulinemia; I83.93 Asymptomatic varicose veins of bilateral lower extremities; W22.09XA Striking against other stationary object, initial encounter; Y93.01 Activity, walking, marching and hiking; Y92.89 Other specified places as the place of occurrence of the external cause; M19.041 Primary osteoarthritis, right hand; M85.80 Other specified disorders of bone density and structure, unspecified site; Z78.0 Asymptomatic menopausal state; I10 Essential (primary) hypertension; E78.5 Hyperlipidemia, unspecified; Z85.828 Personal history of other malignant neoplasm of skin
CPT/HCPCS: 11042; 99213; G0463

== ENCOUNTER 2023-03-23 08:45 | Outpatient (RCR) | payer MEDICARE, OTHER, SELFPAY ==
[2023-03-09 00:25] VITALS: BP 142/58; PULSE 63; RESP 20; TEMP 35.9; BMI 28.6
[2023-03-09 10:26] VITALS: BP 135/62; PULSE 63; RESP 16; TEMP 35.7; BMI 28.6
--- NOTE | 2023-03-09 11:32 | HP.PCM_ITS ---
History of Present Illness Date of Service: 03/09/23 Chief Complaint: Traumatic wound, right medial calf History of Wound: This is an 82-year-old female who sustained a traumatic injury to her right medial calf on February 13, 2023. [place] she was struck by a stick which was laying on the ground, impacting the right medial calf, and creating a wound. She subsequently developed a cellulitis at the site, and was seen and evaluated at [facility] the [facility], where doxycycline 100 mg p.o. twice daily was prescribed for a 5-day course. The patient has been using antibiotic ointment topically. The wound has failed to heal, and she has been referred to the [facility] for evaluation and management. The patient has multiple pre-existing medical conditions, which are listed herein. Her history is negative for myocardial infarction, cerebrovascular accident, diabetes mellitus, and thyroid disease. She sleeps on a flat mattress at night. She is active, without limitation to ambulation. She has graduated compression stockings for daily wear, which were prescribed by her primary care physician. Her most recent laboratory results have been reviewed. [facility] Medical History (Updated 03/09/23 @ 11:[address] 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 Diverticulosis Eczema Elevated serum creatinine Hyperlipidemia Hypertension Osteopenia after menopause Psoriasis Traumatic open wound of right lower leg Home Medications cholecalciferol (vitamin D3) 25 mcg (1,000 unit) tablet (Vitamin D3) 1,000 unit PO DAILY vitamin 09/26/15 [History Last Taken 03/02/23] multivitamin with folic acid 400 mcg tablet (Thera) 1 tab PO DAILY vitamin 09/26/15 [History Last Taken 07/12/16] simvastatin 10 mg tablet 10 mg PO QHS cholesterol 02/24/18 [History Last Taken Unknown] fluticasone propionate 50 mcg/actuation nasal spray,suspension 1 spray DAILY PRN Congestion 09/05/18 [History Last Taken Unknown] losartan 25 mg tablet 100 mg PO DAILY blood pressure 05/31/19 [History Last Taken Unknown] metoprolol tartrate 25 mg tablet 12.5 mg PO BID 04/16/21 [History Last Taken Unknown] amlodipine 2.5 mg tablet 2.5 mg PO DAILY 02/14/22 [History Last Taken Unknown] ibrutinib 420 mg tablet (Imbruvica) 420 mg PO DAILY #28 tabs 07/06/22 [Rx Last Taken 03/02/23] Allergy/AdvReac Type Severity Reaction Status Date / Time meloxicam AdvReac Intermediate Swelling Verified 12/09/22 14:00 aspirin AdvReac thin skin Verified 12/09/22 14:00 Family History Mother Ovarian cancer Colon cancer Father Kidney disease Surgical History History of appendectomy History of cataract surgery History of cholecystectomy History of D&C History of exploratory laparotomy History of foot surgery History of sinus surgery History of sinus surgery Social History household members: none Smoking Status: Never smoker substance use type: does not use Vital Signs Vital Signs Vital Signs: 03/09/23 10:26 03/09/23 00:25 Temperature 96.3 F L 96.6 F L Temperature Source Temporal Pulse Rate 63 63 Respiratory Rate 16 20 H Blood Pressure 135/62 H 142/58 H Blood Pressure Mean 86 86 Blood Pressure Source Monitor Blood Pressure Position Sitting Blood Pressure Location Left Arm Oxygen Delivery Method Room Air Weight Weight: 166 lb 15.477 oz Body Mass Index (BMI) 28.6 Physical Exam Const alert, oriented x3, no apparent distress, average body habitus and well nourished Constitutional Narrative: The patient's BMI is 28.6 General Appearance: cooperative, comfortable, well kempt and well developed Orientation / Consciousness: awake, oriented to person, oriented to place and oriented to time HEENT normocephalic, head/scalp atraumatic and hearing grossly normal bilaterally Head and Scalp: normal to inspection, normocephalic and atraumatic External Ear: external ears normal Eyes PERRL, EOMs intact bilaterally and conjunctivae normal General Eye: normal appearance of both eyes Neck full ROM Resp normal respiratory effort, normal air movement, no retractions and no use of accessory muscles Effort and Inspection: able to speak in complete sentences and symmetric chest movement Extremity no calf tenderness General Extremity: Negative for clubbing or cyanosis Skin Wound Narrative: A traumatic wound is noted on the patient's right medial calf. It is a full thickness wound, extending into the subcutaneous layer, and triangular in shape. There has been little change in the size of the wound since the patient's prior visit 1 week ago. Since the patient's last visit, significant periwound erythema has developed. This has the appearance of cellulitis. Therefore, swab cultures have been obtained for aerobic and anaerobic bacterial growth. There is a moderate amount of bioburden. Dimensions are documented elsewhere. Scattered varicose veins are noted in the patient's lower extremities bilaterally. Slight swelling is noted in the right lower extremity. Neuro oriented x3, CN's II-XII intact bilaterally, moves all extremities and no focal motor deficits Sensorium / Orientation: awake, alert, oriented to person, oriented to place and oriented to time Speech: speech normal Psych Appearance: grossly normal and appropriate Attitude: calm Activity / Motor Behavior: appropriate eye contact Speech: normal speech Mood & Affect: euthymic mood Thought Process: normal thought process Thought Content: normal thought content Attention / Concentration: attention grossly intact Debridement Note Debridement Note Wound debrided: Traumatic right medial calf wound Laterality: Right Type of Debridement: Excisional debridement Anesthesia Used: 5% Lidocaine Gel Depth: Down to and including healthy tissue and in the subcutaneous layer Percentage of wound debrided: 100 Instrument Used: 5mm curette Tissue Removed: Bioburden and eschar Severity: Fat Layer Exposed Amount of bleeding with debridement: Mild Bleeding Controlled with: Compression and gauze Patient tolerated procedure: Patient tolerated procedure well Debridement Free Text: Because of the development of periwound erythema, suspected to be cellulitis, swab cultures have been obtained today for aerobic and anaerobic bacterial growth. Post-Debridement Measurements and Additional Note: Post-Debridement Measurements/Treatment - Nurse 1 - General Ulcer Assessment Start: 03/09/23 10:26 Freq: Status: Active Protocol: [email or web address] Activity Type Activity Date Activity User E-sign Co-sign Detail Recorded Client Recorded Date Recorded By Document 03/09/23 10:26 [id number] 03/09/23 10:37 KW 03/09/23 10:26 - Today's Visit Information Type of service Follow-up Visit (Physician/[employer] ) Arrival Mode Ambulatory Patient Identification Verified (Name & Yes ) Patient Requires Transmission-Based No Precautions Height and Weight Body Mass Index (BMI) 28.6 BMI Classification Overweight Vital Signs Temperature (97.8 F-99.1 F) 96.3 F L Temperature Source Temporal Pulse Rate (60-100) 63 Pulse Location Monitor Respiratory Rate (12-18) 16 Respiratory rate source Observation Oxygen Delivery Method Room Air Blood Pressure (90/60-120/80) 135/62 H Blood Pressure Mean 86 Source Monitor Position Sitting Blood Pressure Location Left Arm History Since Last Visit- (Skip if this is Patient's initial visit) Have you changed medications since your No last visit? Any new allergies or adverse reactions No Had a fall/change in ADL's that may No increase risk of falls Signs or symptoms of abuse and/or No neglect since last visit Have you been in the hospital since your No last visit? Has dressing in place as prescribed Yes Has compression in place as prescribed Yes Has offloadiing in place as prescribed No Experienced any changes in pain level or No management Left Footwear Regular Shoe Right Footwear Regular Shoe Pain Scale: 0-10 Numeric Is Patient Pain Free? Yes WC - Nurse 1 - General Ulcer Measurement Start: 03/09/23 10:26 Freq: Status: Active Protocol: Activity Type Activity Date Activity User E-sign Co-sign Detail Recorded Client Recorded Date Recorded By Document 03/09/23 10:26 KW [id number] 03/09/23 10:37 KW 03/09/23 10:26 Wound Center Nurse 1 #1 R Med LE -Current Size (cm) - Length 1.9 -Current Size (cm) - Width 2.1 -Current Size (cm) - Depth 0.1 -Total Square Cm 3.99 -Date of Last Picture (Recall this 03/09/23 field) -Photo Taken Yes -Tunneling No -Undermining/Tunneling No -Circular Undermining No -Exudate Amt Medium -Exudate Type Serosanguineous -Wound Margin Distinct, Outline Attached -Granulation Amt Large (67-100%) -Granulation Quality Red -Necrosis Amt Small (1-33%) -Necrotic Tissue Type Adherent Slough -Structure Exposed None/Limited to Skin Breakdown -Texture (Ni-wound Skin Appearance) Assessed, Localized Edema -Moisture (Ni-wound Skin Appearance) Assessed -Color (Ni-wound Skin Appearance) Assessed, Erythema -Temperature (Ni-wound Skin No Abnormality Appearance) (Pt Warm) -Tenderness on Palpation (Ni-wound No Skin Appearance) -Ulcer Cleansing Rinsed/ Irrigated with Saline -Foul Odor after Cleansing No -Anesthetic Used 5% Lidocaine Gel Right Calf (cm) 40.2 Right Ankle (cm) 26.5 WC - Nurse 3 - General Ulcer D/C NN Start: 03/09/23 10:26 Freq: Status: Active Protocol: Activity Type Activity Date Activity User E-sign Co-sign Detail Recorded Client Recorded Date Recorded By Document 03/09/23 11:21 DL [id number] 03/09/23 11:22 DL 03/09/23 11:21 Wound Care Center Nurse 3 #1 R Med LE -Ulcer Cleansing Rinsed/ Irrigated with Saline -Foul Odor after Cleansing No -Primary Dressing Applied Promogran -Primary Dressing Covered/Secured with Dry Gauze & Roll Gauze, Secured with Tape -Promogran 1 Right -Tubular Bandage Single Layer -Size of Tubigrip Used Size D -Size D ($) 1 -Stockings Yes Treatment Response Procedure Tolerated Well Pain Scale: 0-10 Numeric Is Patient Pain Free? 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 layer exposed: CODE(S): L97.212 - Non-pressure chronic ulcer of right calf with fat layer exposed (2) Traumatic open wound of right lower leg: CODE(S): S81.801A - Unspecified open wound, right lower leg, initial encounter QUALIFIERS: Encounter type: subsequent encounter Qualified Code(s): S81.801D - Unspecified open wound, right lower leg, subsequent encounter (3) Chronic lymphocytic leukemia: CODE(S): C91.10 - Chronic lymphocytic leukemia of B-cell type not having achieved remission (4) Hypogammaglobulinemia: CODE(S): D80.1 - Nonfamilial hypogammaglobulinemia (5) Arthritis of hand, right: CODE(S): M19.041 - Primary osteoarthritis, right hand (6) Hyperlipidemia: CODE(S): E78.5 - Hyperlipidemia, unspecified (7) Hypertension: CODE(S): I10 - Essential (primary) hypertension (8) Over 65 years old: (9) History of basal cell carcinoma: CODE(S): Z85.828 - Personal history of other malignant neoplasm of skin (10) Diverticulosis: CODE(S): K57.90 - Diverticulosis of intestine, part unspecified, without perforation or abscess without bleeding (11) Osteopenia after menopause: CODE(S): M85.80 - Other specified disorders of bone density and structure, unspecified site; Z78.0 - Asymptomatic menopausal state (12) History of appendectomy: CODE(S): Z90.49 - Acquired absence of other specified parts of digestive tract (13) History of D&C: CODE(S): Z98.890 - Other specified postprocedural states (14) History of exploratory laparotomy: CODE(S): Z98.890 - Other specified postprocedural states PLAN: Plan This is an 82-year-old female who presents with a traumatic wound on the right medial calf. The wound occurred on August 16, 2022. [place] walking [place], a wooden stick impacted the right medial calf, creating an open wound. She has been evaluated at an urgent care facility, and has completed a course of doxycycline 100 mg p.o. twice daily for 5 days. Debridement revealed the presence of relatively pink, healthy wound bed. The patient has been instructed to elevate her lower extremities as much as possible, and to wear the graduated compression stockings which she possesses. She has brought the packaging and her compression stockings, and it is ascertained that her compression stockings are 20 to 30 mmHg compression, knee-high length. The patient is to wear these compression stockings on a daily basis. Activity has been encouraged. P rolonged idle sitting has been discouraged. Leg elevation has been encouraged, even during daytime hours. Her legs are to be elevated to heart level, or higher, as much as possible. We are to continue the use of Promogran topically, which be applied by the patient on a daily basis. The patient has been instructed in the appropriate means of application. Serial debridements are anticipated. Swab cultures have been obtained for aerobic and anaerobic bacterial growth, and culture results will be awaited. However, due to the development of periwound erythema, suspected to be cellulitis, the patient is to be started on Augmentin 875 mg p.o. twice daily for 7 days. The results of her cultures will be awaited. The patient is to return in 1 week for reassessment. Total time: 28 minutes
[2023-03-16 10:42] VITALS: BP 140/52; PULSE 63; RESP 20; TEMP 36.2; BMI 28.6
--- NOTE | 2023-03-16 11:59 | HP.PCM_ITS ---
History of Present Illness Date of Service: 03/16/23 Chief Complaint: Traumatic wound, right medial calf History of Wound: This is an 82-year-old female who sustained a traumatic injury to her right medial calf on February 13, 2023. [place] she was struck by a stick which was laying on the ground, impacting the right medial calf, and creating a wound. She subsequently developed a cellulitis at the site, and was seen and evaluated at [facility] the [facility], where doxycycline 100 mg p.o. twice daily was prescribed for a 5-day course. The patient has been using antibiotic ointment topically. The wound has failed to heal, and she has been referred to the [facility] for evaluation and management. The patient has multiple pre-existing medical conditions, which are listed herein. Her history is negative for myocardial infarction, cerebrovascular accident, diabetes mellitus, and thyroid disease. She sleeps on a flat mattress at night. She is active, without limitation to ambulation. She has graduated compression stockings for daily wear, which were prescribed by her primary care physician. Her most recent laboratory results have been reviewed. 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 Diverticulosis Eczema Elevated serum creatinine Hyperlipidemia Hypertension Osteopenia after menopause Psoriasis Traumatic open wound of right lower leg Home Medications cholecalciferol (vitamin D3) 25 mcg (1,000 unit) tablet (Vitamin D3) 1,000 unit PO DAILY vitamin 09/26/15 [History Last Taken 03/02/23] multivitamin with folic acid 400 mcg tablet (Thera) 1 tab PO DAILY vitamin 09/26/15 [History Last Taken 07/12/16] simvastatin 10 mg tablet 10 mg PO QHS cholesterol 02/24/18 [History Last Taken Unknown] fluticasone propionate 50 mcg/actuation nasal spray,suspension 1 spray DAILY PRN Congestion 09/05/18 [History Last Taken Unknown] losartan 25 mg tablet 100 mg PO DAILY blood pressure 05/31/19 [History Last Taken Unknown] metoprolol tartrate 25 mg tablet 12.5 mg PO BID 04/16/21 [History Last Taken Unknown] amlodipine 2.5 mg tablet 2.5 mg PO DAILY 02/14/22 [History Last Taken Unknown] ibrutinib 420 mg tablet (Imbruvica) 420 mg PO DAILY #28 tabs 07/06/22 [Rx Last Taken 03/02/23] Allergy/AdvReac Type Severity Reaction Status Date / Time meloxicam AdvReac Intermediate Swelling Verified 12/09/22 14:00 aspirin AdvReac thin skin Verified 12/09/22 14:00 Family History Mother Ovarian cancer Colon cancer Father Kidney disease Surgical History History of appendectomy History of cataract surgery History of cholecystectomy History of D&C History of exploratory laparotomy History of foot surgery History of sinus surgery History of sinus surgery Social History household members: none Smoking Status: Never smoker substance use type: does not use Vital Signs Vital Signs Vital Signs: 03/16/23 10:42 Temperature 97.1 F L Temperature Source Oral Pulse Rate 63 Respiratory Rate 20 H Blood Pressure 140/52 H Blood Pressure Mean 81 Blood Pressure Source Monitor Weight Weight: 166 lb 15.477 oz Body Mass Index (BMI) 28.6 Physical Exam Const alert, oriented x3, no apparent distress, average body habitus and well nourished Constitutional Narrative: The patient's BMI is 28.6 General Appearance: cooperative, comfortable, well kempt and well developed Orientation / Consciousness: awake, oriented to person, oriented to place and oriented to time HEENT normocephalic, head/scalp atraumatic and hearing grossly normal bilaterally Head and Scalp: normal to inspection, normocephalic and atraumatic External Ear: external ears normal Eyes PERRL, EOMs intact bilaterally and conjunctivae normal General Eye: normal appearance of both eyes Neck full ROM Resp normal respiratory effort, normal air movement, no retractions and no use of accessory muscles Effort and Inspection: able to speak in complete sentences and symmetric chest movement Extremity no calf tenderness General Extremity: Negative for clubbing or cyanosis Skin Wound Narrative: A traumatic wound is noted on the patient's right medial calf. It is a full thickness wound, extending into the subcutaneous layer, and triangular in shape. There has been little change in the size of the wound since the patient's prior visit 1 week ago. Since the patient's last visit, the ni-ulcer erythema has diminished. There is a moderate amount of bioburden. Dimensions are documented elsewhere. Scattered varicose veins are noted in the patient's lower extremities bilaterally. Slight swelling is noted in the right lower extremity. Neuro oriented x3, CN's II-XII intact bilaterally, moves all extremities and no focal motor deficits Sensorium / Orientation: awake, alert, oriented to person, oriented to place and oriented to time Speech: speech normal Psych Appearance: grossly normal and appropriate Attitude: calm Activity / Motor Behavior: appropriate eye contact Speech: normal speech Mood & Affect: euthymic mood Thought Process: normal thought process Thought Content: normal thought content Attention / Concentration: attention grossly intact Debridement Note Debridement Note Wound debrided: Traumatic right medial calf wound Laterality: Right Type of Debridement: Excisional debridement Anesthesia Used: 5% Lidocaine Gel Depth: Down to and including healthy tissue and in the subcutaneous layer Percentage of wound debrided: 100 Instrument Used: 5mm curette Tissue Removed: Bioburden and eschar Severity: Fat Layer Exposed Amount of bleeding with debridement: Mild Bleeding Controlled with: Compression and gauze Patient tolerated procedure: Patient tolerated procedure well Post-Debridement Measurements and Additional Note: Post-Debridement Measurements/Treatment - Nurse 1 - General Ulcer Assessment Start: 03/09/23 10:26 Freq: Status: Active Protocol: LUCIO Activity Type Activity Date Activity User E-sign Co-sign Detail Recorded Client Recorded Date Recorded By Document 03/09/23 10:26 KW [id number] 03/09/23 10:37 KW Document 03/16/23 10:42 DL [id number] 03/16/23 10:48 DL 03/09/23 03/16/23 10:26 10:42 - Today's Visit Information Type of service Follow-up Visit Follow-up Visit (Physician/LITIGATION LEGAL ASSISTANT (Physician/LITIGATION LEGAL ASSISTANT ) ) Arrival Mode Ambulatory Ambulatory Transfer Assistance None Patient Identification Verified (Name & Yes Yes ) Patient Requires Transmission-Based No No Precautions Height and Weight Body Mass Index (BMI) 28.6 28.6 BMI Classification Overweight Overweight Vital Signs Temperature (97.8 F-99.1 F) 96.3 F L 97.1 F L Temperature Source Temporal Oral Pulse Rate (60-100) 63 63 Pulse Location Monitor Monitor Respiratory Rate (12-18) 16 20 H Respiratory rate source Observation Ventilator Oxygen Delivery Method Room Air Blood Pressure (90/60-120/80) 135/62 H 140/52 H Blood Pressure Mean 86 81 Source Monitor Monitor Position Sitting Blood Pressure Location Left Arm History Since Last Visit- (Skip if this is Patient's initial visit) Have you changed medications since your No No last visit? Any new allergies or adverse reactions No No Had a fall/change in ADL's that may No No increase risk of falls Signs or symptoms of abuse and/or No No neglect since last visit Have you been in the hospital since your No Yes last visit? Has dressing in place as prescribed Yes Yes Has compression in place as prescribed Yes Yes Has offloadiing in place as prescribed No N/A Experienced any changes in pain level or No No management Left Footwear Regular Shoe Right Footwear Regular Shoe Pain Scale: 0-10 Numeric Is Patient Pain Free? Yes Yes WC - Nurse 1 - General Ulcer Measurement Start: 03/09/23 10:26 Freq: Status: Active Protocol: Activity Type Activity Date Activity User E-sign Co-sign Detail Recorded Client Recorded Date Recorded By Document 03/09/23 10:26 KW [id number] 03/09/23 10:37 KW Document 03/16/23 10:42 DL [id number] 03/16/23 10:48 DL 03/09/23 03/16/23 10:26 10:42 Wound Center Nurse 1 #1 R Med LE -Current Size (cm) - Length 1.9 2 -Current Size (cm) - Width 2.1 2.2 -Current Size (cm) - Depth 0.1 0.1 -Total Square Cm 3.99 4.4 -Date of Last Picture (Recall this 03/09/23 field) -Photo Taken Yes -Tunneling No -Undermining/Tunneling No -Circular Undermining No -Exudate Amt Medium Small -Exudate Type Serosanguineous Serosanguineous -Wound Margin Distinct, Distinct, Outline Outline Attached Attached -Granulation Amt Large (67-100%) Large (67-100%) -Granulation Quality [place] -Necrosis Amt Small (1-33%) Medium (34-66%) -Necrotic Tissue Type Adherent Slough Adherent Slough -Structure Exposed None/Limited to Skin Breakdown -Texture (Ni-wound Skin Appearance) Assessed, Scarring Localized Edema -Moisture (Ni-wound Skin Appearance) Assessed No Abnormality -Color (Ni-wound Skin Appearance) Assessed, Hemosiderin Erythema Staining -Temperature (Ni-wound Skin No Abnormality Appearance) (Pt Warm) -Tenderness on Palpation (Ni-wound No No Skin Appearance) -Ulcer Cleansing Rinsed/ Soap and Water Irrigated with Saline -Foul Odor after Cleansing No No -Anesthetic Used 5% Lidocaine 5% Lidocaine Gel Gel Right Calf (cm) 40.2 38.2 Right Ankle (cm) 26.5 22.7 WC - Nurse 2 - General Ulcer CM Notes Start: 03/09/23 10:26 Freq: Status: Active Protocol: Activity Type Activity Date Activity User E-sign Co-sign Detail Recorded Client Recorded Date Recorded By Document 03/09/23 12:37 PL [id number] 03/09/23 12:38 PL 03/09/23 12:37 Wound Center Nurse 2 #1 R Med LE -Time 10:53 -Correct Patient Yes -Correct Side, Site, Position Yes -Correct Procedure Yes -Procedure Performed Yes -Type of Procedure Debridement -Clinical Debridement Subcutaneous -Tissue Removed Subcutaneous -Post Debridement (cm) - Length 1.9 -Post Debridement (cm) - Width 2.1 -Post Debridement (cm) - Depth 0.1 -Total Square (Post) (cm) 3.99 -Area of Debridement (cm) - Length 1.9 -Area of Debridement (cm) - Width 2.1 -Total Square (Area) (cm) 3.99 -Tunneling No -Undermining/Tunneling No -Circular Undermining No -Wound/Ulcer Outcome Not Healed -Ulcer Cleansing Rinsed/ Irrigated with Saline -Foul Odor after Cleansing No -Bioengineered Tissue No -Bleeding Controlled with Pressure -Treatment Response Procedure Tolerated Well -Debridement - Subq, 1st 20sq cm Yes Pain Scale: 0-10 Numeric Is Patient Pain Free? Yes RAH - Nurse 3 - General Ulcer D/C NN Start: 03/09/23 10:26 Freq: Status: Active Protocol: Activity Type Activity Date Activity User E-sign Co-sign Detail Recorded Client Recorded Date Recorded By Document 03/09/23 11:21 DL [id number] 03/09/23 11:22 DL Document 03/16/23 11:18 DL [id number] 03/16/23 11:19 DL 03/09/23 03/16/23 11:21 11:18 Wound Care Center Nurse 3 #1 R Med LE -Ulcer Cleansing Rinsed/ Rinsed/ Irrigated with Irrigated with Saline Saline -Foul Odor after Cleansing No No -Primary Dressing Applied Promogran Promogran -Primary Dressing Covered/Secured with Dry Gauze & Dry Gauze, Roll Gauze, Secured with Secured with Tape Tape -Promogran 1 1 Right -Tubular Bandage Single Layer -Size of Tubigrip Used Size D -Size D ($) 1 -Stockings Yes Yes Treatment Response Procedure Procedure Tolerated Well Tolerated Well Pain Scale: 0-10 Numeric Is Patient Pain Free? Yes Yes WC - Visit Discharge Discharge Condition Stable Stable Ambulatory Status Ambulatory Ambulatory Transportation Private Auto Assessment/Plan Assessment/Plan (1) Chronic ulcer of right calf with fat layer exposed: CODE(S): L97.212 - Non-pressure chronic ulcer of right calf with fat layer exposed (2) Traumatic open wound of right lower leg: CODE(S): S81.801A - Unspecified open wound, right lower leg, initial encounter QUALIFIERS: Encounter type: subsequent encounter Qualified Code(s): S81.801D - Unspecified open wound, right lower leg, subsequent encounter (3) Chronic lymphocytic leukemia: CODE(S): C91.10 - Chronic lymphocytic leukemia of B-cell type not having achieved remission (4) Hypogammaglobulinemia: CODE(S): D80.1 - Nonfamilial hypogammaglobulinemia (5) Arthritis of hand, right: CODE(S): M19.041 - Primary osteoarthritis, right hand (6) Hyperlipidemia: CODE(S): E78.5 - Hyperlipidemia, unspecified (7) Hypertension: CODE(S): I10 - Essential (primary) hypertension (8) Over 65 years old: (9) History of basal cell carcinoma: CODE(S): Z85.828 - Personal history of other malignant neoplasm of skin (10) Diverticulosis: CODE(S): K57.90 - Diverticulosis of intestine, part unspecified, without perforation or abscess without bleeding (11) Osteopenia 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 The wound occurred on August 16, 2022. [place] walking [place], a wooden stick impacted the right medial calf, creating an open wound. She has been evaluated at an urgent care facility, and has completed a course of doxycycline 100 mg p.o. twice daily for 5 days. Debridement reveals the presence of relatively pink, healthy wound bed. The patient has been instructed to elevate her lower extremities as much as possible, and to wear the graduated compression stockings, which she possesses. She has brought the packaging and her compression stockings, and it is ascertained that her compression stockings are 20 to 30 mmHg compression, knee-high length. The patient is to wear these compression stockings on a daily basis. Activity has been encouraged. Prolonged idle sitting has been discouraged. Leg elevation has been encouraged, even during daytime hours. Her legs are to be elevated to heart level, or higher, as much as possible. We are to continue the use of Promogran topically, which be applied by the patient on a daily basis. The patient has been instructed in the appropriate means of application. Serial debridements are a nticipated. Swab cultures for bacterial growth were obtained last week, the results of which were positive for Proteus mirabilis and Staphylococcus aureus. The patient has taken a course of Augmentin 875 mg p.o. twice daily for 7 days, with resolution erythema in the periulcer area. The patient's ulceration appears appropriate for the use of a skin graft substitute, and approval will be requested from her insurance provider for the use of EpiFix allografts. The patient is to return in 1 week for reassessment. Total time: 26 minutes
[2023-03-23 08:49] VITALS: BP 106/48; PULSE 62; RESP 16; TEMP 35.7; BMI 28.6
--- NOTE | 2023-03-23 09:16 | HP.PCM_ITS ---
History of Present Illness Date of Service: 03/23/23 Chief Complaint: Traumatic wound, right medial calf History of Wound: This is an 82-year-old female who sustained a traumatic injury to her right medial calf on February 13, 2023. [place] she was struck by a stick which was laying on the ground, impacting the right medial calf, and creating a wound. She subsequently developed a cellulitis at the site, and was seen and evaluated at [facility] the [facility], where doxycycline 100 mg p.o. twice daily was prescribed for a 5-day course. The patient has been using antibiotic ointment topically. The wound has failed to heal, and she has been referred to the [facility] for evaluation and management. The patient has multiple pre-existing medical conditions, which are listed herein. Her history is negative for myocardial infarction, cerebrovascular accident, diabetes mellitus, and thyroid disease. She sleeps on a flat mattress at night. She is active, without limitation to ambulation. She has graduated compression stockings for daily wear, which were prescribed by her primary care physician. Her most recent laboratory results have been reviewed. 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 Diverticulosis Eczema Elevated serum creatinine Hyperlipidemia Hypertension Osteopenia after menopause Psoriasis Traumatic open wound of right lower leg Home Medications cholecalciferol (vitamin D3) 25 mcg (1,000 unit) tablet (Vitamin D3) 1,000 unit PO DAILY vitamin 09/26/15 [History Last Taken 03/02/23] multivitamin with folic acid 400 mcg tablet (Thera) 1 tab PO DAILY vitamin 09/26/15 [History Last Taken 07/12/16] simvastatin 10 mg tablet 10 mg PO QHS cholesterol 02/24/18 [History Last Taken Unknown] fluticasone propionate 50 mcg/actuation nasal spray,suspension 1 spray DAILY PRN Congestion 09/05/18 [History Last Taken Unknown] losartan 25 mg tablet 100 mg PO DAILY blood pressure 05/31/19 [History Last Taken Unknown] metoprolol tartrate 25 mg tablet 12.5 mg PO BID 04/16/21 [History Last Taken Unknown] amlodipine 2.5 mg tablet 2.5 mg PO DAILY 02/14/22 [History Last Taken Unknown] ibrutinib 420 mg tablet (Imbruvica) 420 mg PO DAILY #28 tabs 07/06/22 [Rx Last Taken 03/02/23] Allergy/AdvReac Type Severity Reaction Status Date / Time meloxicam AdvReac Intermediate Swelling Verified 12/09/22 14:00 aspirin AdvReac thin skin Verified 12/09/22 14:00 Family History Mother Ovarian cancer Colon cancer Father Kidney disease Surgical History History of appendectomy History of cataract surgery History of cholecystectomy History of D&C History of exploratory laparotomy History of foot surgery History of sinus surgery History of sinus surgery Social History household members: none Smoking Status: Never smoker substance use type: does not use Vital Signs Vital Signs Vital Signs: 03/23/23 08:49 Temperature 96.2 F L Temperature Source Temporal Pulse Rate 62 Respiratory Rate 16 Blood Pressure 106/48 L Blood Pressure Mean 67 Blood Pressure Source Monitor Blood Pressure Position Sitting Blood Pressure Location Left Arm Oxygen Delivery Method Room Air Weight Weight: 166 lb 15.477 oz Body Mass Index (BMI) 28.6 Physical Exam Const alert, oriented x3, no apparent distress, average body habitus and well nourished Constitutional Narrative: The patient's BMI is 28.6 General Appearance: cooperative, comfortable, well kempt and well developed Orientation / Consciousness: awake, oriented to person, oriented to place and oriented to time HEENT normocephalic, head/scalp atraumatic and hearing grossly normal bilaterally Head and Scalp: normal to inspection, normocephalic and atraumatic External Ear: external ears normal Eyes PERRL, EOMs intact bilaterally and conjunctivae normal General Eye: normal appearance of both eyes Neck full ROM Resp normal respiratory effort, normal air movement, no retractions and no use of accessory muscles Effort and Inspection: able to speak in complete sentences and symmetric chest movement Extremity no calf tenderness General Extremity: Negative for clubbing or cyanosis Skin Wound Narrative: The traumatic wound on the patient's right medial calf is now seen to be covered by eschar. The eschar was gently removed, revealing the wound to be totally healed and epithelialized. There is no sign of infection or cellulitis. There are no other wounds or ulcerations in the right lower extremity. There is no significant swelling or edema. Neuro oriented x3, CN's II-XII intact bilaterally, moves all extremities and no focal motor deficits Sensorium / Orientation: awake, alert, oriented to person, oriented to place and oriented to time Speech: speech normal Psych Appearance: grossly normal and appropriate Attitude: calm Activity / Motor Behavior: appropriate eye contact Speech: normal speech Mood & Affect: euthymic mood Thought Process: normal thought process Thought Content: normal thought content Attention / Concentration: attention grossly intact Debridement Note Debridement Note No debridement was completed: No debridement was completed today (The patient's right lower extremity wound is now healed.) Post-Debridement Measurements and Additional Note: Post-Debridement Measurements/Treatment WC - Nurse 1 - General Ulcer Assessment Start: 03/09/23 10:26 Freq: Status: Active Protocol: RAH.DEBBIE Activity Type Activity Date Activity User E-sign Co-sign Detail Recorded Client Recorded Date Recorded By Document 03/09/23 10:26 KW [id number] 03/09/23 10:37 KW Document 03/16/23 10:42 DL [id number] 03/16/23 10:48 DL Document 03/23/23 08:49 MW [id number] 03/23/23 08:58 MW 03/09/23 03/16/23 03/23/23 10:26 10:42 08:49 - Today's Visit Information Type of service Follow-up Visit Follow-up Visit Follow-up Visit (Physician/CASH APPLICATIONS ANALYST (Physician/CASH APPLICATIONS ANALYST (Physician/CASH APPLICATIONS ANALYST ) ) ) Arrival Mode Ambulatory Ambulatory Ambulatory Transfer Assistance None None Accompanied by self Patient Identification Verified (Name & Yes Yes Yes ) Patient Requires Transmission-Based No No No Precautions Safety Precautions NA Height and Weight Body Mass Index (BMI) 28.6 28.6 28.6 BMI Classification Overweight Overweight Overweight Vital Signs Temperature (97.8 F-99.1 F) 96.3 F L 97.1 F L 96.2 F L Temperature Source Temporal Oral Temporal Pulse Rate (60-100) 63 63 62 Pulse Location Monitor Monitor Monitor Respiratory Rate (12-18) 16 20 H 16 Respiratory rate source Observation Ventilator Observation Oxygen Delivery Method Room Air Room Air Blood Pressure (90/60-120/80) 135/62 H 140/52 H 106/48 L Blood Pressure Mean 86 81 67 Source Monitor Monitor Monitor Position Sitting Sitting Blood Pressure Location Left Arm Left Arm History Since Last Visit- (Skip if this is Patient's initial visit) Have you changed medications since your No No No last visit? Any new allergies or adverse reactions No No No Had a fall/change in ADL's that may No No No increase risk of falls Signs or symptoms of abuse and/or No No No neglect since last visit Have you been in the hospital since your No Yes No last visit? Has dressing in place as prescribed Yes Yes Yes Has compression in place as prescribed Yes Yes Yes Has offloadiing in place as prescribed No N/A N/A Experienced any changes in pain level or No No No management Left Footwear Regular Shoe Regular Shoe Right Footwear Regular Shoe Regular Shoe Pain Scale: 0-10 Numeric Is Patient Pain Free? Yes Yes Yes WC - Nurse 1 - General Ulcer Measurement Start: 03/09/23 10:26 Freq: Status: Active Protocol: Activity Type Activity Date Activity User E-sign Co-sign Detail Recorded Client Recorded Date Recorded By Document 03/09/23 10:26 KW [id number] 03/09/23 10:37 KW Document 03/16/23 10:42 DL [id number] 03/16/23 10:48 DL Document 03/23/23 08:49 MW [id number] 03/23/23 08:58 MW 03/09/23 03/16/23 03/23/23 10:26 10:42 08:49 Wound Center Nurse 1 #1 R Med LE -Combined with other wound No -Current Size (cm) - Length 1.9 2 0.1 -Current Size (cm) - Width 2.1 2.2 0.1 -Current Size (cm) - Depth 0.1 0.1 0.1 -Total Square Cm 3.99 4.4 0.01 -Date of Last Picture (Recall this 03/09/23 field) -Photo Taken Yes No -Epithelialization None Present -Tunneling No No -Undermining/Tunneling No No -Circular Undermining No No -Exudate Amt Medium Small None Present -Exudate Type Serosanguineous Serosanguineous -Wound Margin Distinct, Distinct, Flat & Intact Outline Outline Attached Attached -Granulation Amt Large (67-100%) Large (67-100%) None Present (0 %) -Granulation Quality [place] N/A -Necrosis Amt Small (1-33%) Medium (34-66%) Large (67-100%) -Necrotic Tissue Type Adherent Slough Adherent Slough Adherent Slough -Structure Exposed None/Limited to N/A Skin Breakdown -Texture (Ni-wound Skin Appearance) Assessed, Scarring Assessed, Localized Edema Localized Edema ,Scarring -Moisture (Ni-wound Skin Appearance) Assessed No Abnormality Assessed,Dry/ Scaly -Color (Ni-wound Skin Appearance) Assessed, Hemosiderin Assessed Erythema Staining -Temperature (Ni-wound Skin No Abnormality No Abnormality Appearance) (Pt Warm) (Pt Warm) -Tenderness on Palpation (Ni-wound No No No Skin Appearance) -Ulcer Cleansing Rinsed/ Soap and Water Rinsed/ Irrigated with Irrigated with Saline Saline -Foul Odor after Cleansing No No No -Anesthetic Used 5% Lidocaine 5% Lidocaine 5% Lidocaine Gel Gel Gel Lower Limb Edema Present Yes Right Calf (cm) 40.2 38.2 38.5 Right Ankle (cm) 26.5 22.7 23.5 WC - Nurse 2 - General Ulcer CM Notes Start: 03/09/23 10:26 Freq: Status: Active Protocol: Activity Type Activity Date Activity User E-sign Co-sign Detail Recorded Client Recorded Date Recorded By Document 03/09/23 12:37 [id number] 03/09/23 12:38 Document 03/16/23 12:18 [id number] 03/16/23 12:19 PL 03/09/23 03/16/23 12:37 12:18 Wound Center Nurse 2 #1 R Med LE -Time 10:53 10:57 -Correct Patient Yes Yes -Correct Side, Site, Position Yes Yes -Correct Procedure Yes Yes -Procedure Performed Yes Yes -Type of Procedure Debridement Debridement -Clinical Debridement Subcutaneous Subcutaneous -Tissue Removed Subcutaneous Subcutaneous -Post Debridement (cm) - Length 1.9 2.0 -Post Debridement (cm) - Width 2.1 2.2 -Post Debridement (cm) - Depth 0.1 0.2 -Total Square (Post) (cm) 3.99 4.40 -Area of Debridement (cm) - Length 1.9 2.0 -Area of Debridement (cm) - Width 2.1 2.2 -Total Square (Area) (cm) 3.99 4.40 -Tunneling No No -Undermining/Tunneling No No -Circular Undermining No No -Wound/Ulcer Outcome Not Healed Not Healed -Ulcer Cleansing Rinsed/ Rinsed/ Irrigated with Irrigated with Saline Saline -Foul Odor after Cleansing No No -Bioengineered Tissue No No -Bleeding Controlled with Pressure Pressure -Treatment Response Procedure Procedure Tolerated Well Tolerated Well -Debridement - Subq, 1st 20sq cm Yes Yes Pain Scale: 0-10 Numeric Is Patient Pain Free? Yes Yes - Nurse 3 - General Ulcer D/C NN Start: 03/09/23 10:26 Freq: Status: Active Protocol: Activity Type Activity Date Activity User E-sign Co-sign Detail Recorded Client Recorded Date Recorded By Document 03/09/23 11:21 DL [id number] 03/09/23 11:22 DL Document 03/16/23 11:18 DL [id number] 03/16/23 11:19 DL 03/09/23 03/16/23 11:21 11:18 Wound Care Center Nurse 3 #1 R Med LE -Ulcer Cleansing Rinsed/ Rinsed/ Irrigated with Irrigated with Saline Saline -Foul Odor after Cleansing No No -Primary Dressing Applied Promogran Promogran -Primary Dressing Covered/Secured with Dry Gauze & Dry Gauze, Roll Gauze, Secured with Secured with Tape Tape -Promogran 1 1 Right -Tubular Bandage Single Layer -Size of Tubigrip Used Size D -Size D ($) 1 -Stockings Yes Yes Treatment Response Procedure Procedure Tolerated Well Tolerated Well Pain Scale: 0-10 Numeric Is Patient Pain Free? Yes Yes - Visit Discharge Discharge Condition Stable Stable Ambulatory Status Ambulatory Ambulatory Transportation Private Auto Assessment/Plan Assessment/Plan (1) Chronic ulcer of right calf with fat layer exposed: CODE(S): L97.212 - Non-pressure chronic ulcer of right calf with fat layer exposed (2) Traumatic open wound of right lower leg: CODE(S): S81.801A - Unspecified open wound, right lower leg, initial encounter QUALIFIERS: Encounter type: subsequent encounter Qualified Code(s): S81.801D - Unspecified open wound, right lower leg, subsequent encounter (3) Chronic lymphocytic leukemia: CODE(S): C91.10 - Chronic lymphocytic leukemia of B-cell type not having achieved remission (4) Hypogammaglobulinemia: CODE(S): D80.1 - Nonfamilial hypogammaglobulinemia (5) Arthritis of hand, right: CODE(S): M19.041 - Primary osteoarthritis, right hand (6) Hyperlipidemia: CODE(S): E78.5 - Hyperlipidemia, unspecified (7) Hypertension: CODE(S): I10 - Essential (primary) hypertension (8) Over 65 years old: (9) History of basal cell carcinoma: CODE(S): Z85.828 - Personal history of other malignant neoplasm of skin (10) Diverticulosis: CODE(S): K57.90 - Diverticulosis of intestine, part unspecified, without perforation or abscess without bleeding (11) Osteopenia 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 The wound occurred on August 16, 2022. [place], a wooden stick impacted the right medial calf, creating an open wound. She has been evaluated at an urgent care facility, and has completed a course of doxycycline 100 mg p.o. twice daily for 5 days. At her presentation today, the patient's wound is now completely healed and epithelialized. There is no sign of infection or cellulitis. There is no significant swelling or edema in the patient's right lower extremity. The patient has done well, and is now completely healed. She is to be discharged, and will follow-up henceforth on an as-needed basis. Total time: 22 minutes
== END 2023-03-23 14:40 | disposition home or self-care (01) ==
LOC: WC 08:45
PROVIDERS: PCP Internal Medicine; Visit Provider Surgery
DX: L97.212 Non-pressure chronic ulcer of right calf with fat layer exposed (principal); C91.10 Chronic lymphocytic leukemia of B-cell type not having achieved remission; D80.1 Nonfamilial hypogammaglobulinemia; W22.09XS Striking against other stationary object, sequela; M85.80 Other specified disorders of bone density and structure, unspecified site; I10 Essential (primary) hypertension; E78.5 Hyperlipidemia, unspecified; M19.041 Primary osteoarthritis, right hand; Z78.0 Asymptomatic menopausal state; Z79.899 Other long term (current) drug therapy; Z85.828 Personal history of other malignant neoplasm of skin
CPT/HCPCS: 11042; 87070; 87075; 87077; 87186; 87205; 99213; G0463

== ENCOUNTER 2023-07-28 11:22 | Emergency (ER) | payer MEDICARE, OTHER, SELFPAY ==
[2023-07-28 11:23] VITALS: BP 150/42; PULSE 102; RESP 20; TEMP 37.2; O2SAT 96; BMI 28.4
--- NOTE | 2023-07-28 12:21 | EDS_ITS ---
HPI History of Present Illness Chief Complaint: Cold Sx Informant: patient Narrative Narrative: 82-year-old female brought to the emergency room chief complaint of diarrhea. She is currently undergoing treatment for CLL with Dr. Boggs on immunotherapy. Patient states that last Wednesday she began to have diarrhea subsequently has developed runny nose cough congestion. She states that she is worried about dehydration and pneumonia. She went to an urgent care over the weekend was told that it was too early for Imodium. She is now tried some Imodium with no success. She states that she has been trying to drink plenty of fluids but has not been eating as well. She states that she is unsure if her urine is dark because whenever she urinates she has diarrhea. She notes occasional abdominal cramping but no pain. She denies fever. 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 Prerenal azotemia Psoriasis Traumatic open wound of right lower leg Home Medications cholecalciferol (vitamin D3) 25 mcg (1,000 unit) tablet (Vitamin D3) 1,000 unit PO DAILY vitamin 09/26/15 [History Last Taken 03/02/23] multivitamin with folic acid 400 mcg tablet (Thera) 1 tab PO DAILY vitamin 09/26/15 [History Last Taken 07/12/16] simvastatin 10 mg tablet 10 mg PO QHS cholesterol 02/24/18 [History Last Taken Unknown] fluticasone propionate 50 mcg/actuation nasal spray,suspension 1 spray DAILY PRN Congestion 09/05/18 [History Last Taken Unknown] losartan 25 mg tablet 100 mg PO DAILY blood pressure 05/31/19 [History Last Taken Unknown] metoprolol tartrate 25 mg tablet 12.5 mg PO BID 04/16/21 [History Last Taken Unknown] amlodipine 2.5 mg tablet 2.5 mg PO DAILY 02/14/22 [History Last Taken Unknown] ibrutinib 420 mg tablet (Imbruvica) 420 mg PO DAILY #28 tabs 07/08/23 [Rx Last Taken Unknown] Allergy/AdvReac Type Severity Reaction Status Date / Time meloxicam AdvReac Intermediate Swelling Verified 07/28/23 11:23 aspirin AdvReac thin skin Verified 07/28/23 11:23 Family History Mother Ovarian cancer Colon cancer Father Kidney disease Surgical History History of appendectomy History of cataract surgery History of cholecystectomy History of D&C History of exploratory laparotomy History of foot surgery History of sinus surgery History of sinus surgery Social History household members: none Smoking Status: Never smoker substance use type: does not use ROS ROS ED Constitutional Constitutional ED: Denies chills, fever(s) or weight loss Eyes Eyes: Denies change in vision or diplopia ENT ENT ED: Reports rhinorrhea; Denies ear pain or sore throat Cardiovascular Cardiovascular: Denies chest pain, orthopnea, palpitations or racing heartbeat Respiratory/Chest Respiratory/Chest: Reports cough; Denies dyspnea or orthopnea Gastrointestinal Gastrointestinal: Reports diarrhea and other Details: anorexia ; Denies abdominal pain, nausea or vomiting Genitourinary Genitourinary ED: Denies dysuria, hematuria or urinary frequency Musculoskeletal Musculoskeletal: Denies arthralgias or myalgias Integumentary Denies abscess or rash Neurologic Neurologic: Denies headache(s) or weakness Psychiatric Psychiatric: Denies anxiety, depression, suicidal ideation or suicidal thoughts Endocrine Endocrinology: Denies polydipsia, polyphagia or polyuria Allergic/Immunologic Allergic/Immunologic ED: Denies mouth swelling, tongue swelling or urticaria EXAM Physical Exam Const Vital Signs: 07/28/23 11:23 07/28/23 12:37 07/28/23 13:38 Temperature 99 F Temperature Source Temporal Pulse Rate 102 H 65 Respiratory Rate 20 H 14 Respiratory Pattern Normal Blood Pressure 150/42 H 110/64 Blood Pressure Mean 78 79 Pulse Ox 96 100 Oxygen Delivery Method Room Air Room Air Positive well nourished and well developed General Appearance ED: well developed HEENT Reports normocephalic, head/scalp atraumatic and moist mucous membranes Eyes PERRL and EOMs intact bilaterally Neck no lymphadenopathy, supple and no JVD Resp normal respiratory effort and clear to auscultation bilaterally Cardio regular rate, regular rhythm and no murmurs GI normal to inspection, nondistended, normoactive bowel sounds and non-tender Palpation: soft Back/Spine no CVA tenderness and normal ROM Extremity normal to inspection General Extremety ED: Negative for edema General Extremity: Negative for edema Neuro oriented x3 and CN's II-XII intact bilaterally Sensorium / Orientation: alert Motor Exam: strength 5/5 throughout Psych mental status grossly normal Mood & Affect: Negative for depressed or tearful Skin no rashes or lesions noted and no wounds MDM MDM MDM Narrative Medical decision making narrative: White count is elevated at 24. With her history of CLL she has had white blood cell counts in this range before. Serum CO2 is 20 BUN is 62 and creatinine 1.80. Urinalysis with a specific gravity 1.01 no overt infection. Negative ketones. Patient received 2 L of IV fluids. My interpretation of the chest x- ray is no acute infiltrate. The COVID and influenza swabs are negative. I the patient can be discharged home. Would recommend continued hydration. I would continue the Imodium. If her diarrhea does not improve we can send it for stool examination. The abdomen is benign she is not having bloody diarrhea or pain in the abdomen. Patient is comfortable with continued supportive care return if worsening or concerns History & Record Review Discussion w/independent historian: Patient Lab Data Attestation: I reviewed the patient's lab results. Labs: Laboratory Results - last 24 hr 07/28/23 07/28/23 12:30 13:25 WBC 24.0 H RBC 4.34 Hgb 12.6 Hct 39.7 MCV 91.5 MCH 29.0 MCHC 31.7 L RDW Std Deviation 51.5 H RDW Coeff of Yolie 15.2 H Plt Count 205 MPV 12.9 H Immature Gran % (Auto) 0.900 Neut % (Auto) 9.9 L Lymph % (Auto) 83.9 H [place] % (Auto) 4.7 Eos % (Auto) 0.2 Baso % (Auto) 0.4 Absolute Neuts (auto) 2.4 Absolute Lymphs (auto) 20.18 H Nucleated RBC % 0 Differential Comment SCANNED Reactive Lymphocytes 1+ Sodium 136 Potassium 4.6 Chloride 105 Carbon Dioxide 20.0 L Anion Gap 11 BUN 62 H Creatinine 1.80 H Estim Creat Clear Calc 21.53 Est GFR (MDRD) Af Amer 35 L Est GFR (MDRD) Non-Af 29 L BUN/Creatinine Ratio 34.4 H Glucose 93 Calcium 8.3 L Total Bilirubin 0.60 AST 31 ALT 26 Alkaline Phosphatase 134 H Total Protein 6.1 L Albumin 3.3 Globulin 2.8 Albumin/Globulin Ratio 1.2 Urine Color Yellow Urine Clarity Clear Urine pH 6.0 Ur Specific [place] 1.010 Urine Protein Negative Urine Glucose (UA) Normal Urine Ketones Negative Urine Occult Blood 25 H Urine Nitrite Negative Urine Bilirubin Negative Urine Urobilinogen Normal Ur Leukocyte Esterase Negative Urine RBC 0-5 SEEN Urine WBC 0 SEEN Ur Squamous Epith Cells 0 SEEN Urine Bacteria 0 SEEN Urine Mucus 0 SEEN Discharge Plan Triage Chief Complaint: Cold Sx ED Provider: Quintin Manrique Dx/Rx/DC Orders Clinical Impression: Diarrhea, Chronic lymphocytic leukemia, URI (upper respiratory infection), Acute dehydration, Elevated serum creatinine Instructions: ED Dehydration (Adult), ED Diarrhea, Unknown Cause Prescriptions: No Action cholecalciferol (vitamin D3) [Vitamin D3] 1,000 UNIT tablet 1,000 unit PO DAILY Patient Comments: supplement multivitamin with folic acid [Thera] 1 TABLET tablet 1 tab PO DAILY Patient Comments: vitamin simvastatin 10 MG tablet 10 mg PO QHS fluticasone propionate 1 SPRAY spray,suspension 1 spray NASAL DAILY PRN (Reason: Congestion) losartan 25 MG tablet 100 mg PO DAILY metoprolol tartrate 25 mg tablet 12.5 mg PO BID amlodipine 2.5 mg tablet 2.5 mg PO DAILY Imbruvica 420 mg tablet 420 mg PO DAILY Qty: 28 12RF Primary Care Provider: Gail Lopes Referrals: Gail Lopes MD [Primary Care Provider] - 1 Week if not improving Disposition Disposition: Home, Self Care
[2023-07-28] MEDS: 0.9% Normal Saline (1000mL) 1,000 ML 1000 ML IV (12:35)
[2023-07-28 12:49] LABS: Absolute Lymphocyte Count 20.18 X10^3/uL (0.83-4.51); Absolute Neutrophil Count 2.4 X10^3/uL (2.0-7.7); Basophil# 0.09 X10^3/uL; Basophil% 0.4 % (0-1); Eosinophil# 0.04 X10^3/uL; Eosinophils% 0.2 % (0-5); Hematocrit 39.7 % (37-47); Hemoglobin 12.6 g/dL (12.0-15.0); Lymphocyte # 20.18 X10^3/ul (0.83-4.51); Lymphocyte % 83.9 % (19-41); Mean Corp Hgb Conc 31.7 g/dL (32-36); Mean Corpuscular Volume 91.5 fL (81-99); Mean Platelet Vol. 12.9 fl (6.2-12.0); Monocyte# 1.12 X10^3/uL; Monocyte% 4.7 % (0-10); NRBC Flagged by Analyzer 0 % (0-5); Neutrophil % 9.9 % (47-70); POSITIVE DIFFERENTIAL YES; Platelet Count 205 K/mm3 (150-450); RBC Distribution Width CV 15.2 % (11.6-14.6); RBC Distribution Width SD 51.5 fl (35.1-43.9); Red Blood Count 4.34 M/mm3 (4.2-5.4)
[2023-07-28 12:50] LABS: Differential Indicated SCAN CRITERIA MET
[2023-07-28 13:06] LABS: ALB/GLOB Ratio 1.2 RATIO (0.9-2.4); AST(SGOT) 31 U/L (15-37); Alanine Aminotransfer ALT/SGPT 26 U/L (13-56); Albumin, Serum 3.3 g/dL (3.2-5.0); Alkaline Phosphatase 134 U/L (45-117); Anion Gap 11 (5-15); BUN 62 mg/dL (7-18); BUN/Creat Ratio 34.4 RATIO (10-20); Calcium,Total 8.3 mg/dL (8.5-10.1); Chloride 105 mmol/L (98-107); EST Glomerular Filtration Rate 29 mL/min (>60); Est Glom Filt Rate - Afr Amer 35 mL/min (>60); Estimated Creatinine Clearance 21.53 ml/min; Globulin 2.8 g/dL (2.2-4.2); Glucose 93 mg/dL (74-106); Potassium 4.6 mmol/L (3.5-5.1); Protein, Total 6.1 g/dL (6.4-8.2); Sodium Level 136 mmol/L (136-145)
[2023-07-28 13:10] LABS: Differential Comment SCANNED
[2023-07-28 13:11] LABS: Reactive Lymphocyte 1+
[2023-07-28 13:38] VITALS: BP 110/64; PULSE 65; RESP 14; O2SAT 100
[2023-07-28 13:40] LABS: Bacteria 0 SEEN /hpf (None Seen); Mucous, Urine 0 SEEN /hpf (<or=2+); Squamous Epithelial Cells - UA 0 SEEN /hpf (5-10); White Blood Cells 0 SEEN /hpf (0-5)
[2023-07-28 13:44] LABS: Color, Urine Yellow (Yellow); Glucose, Dipstick Normal (Normal); Ketone-Dipstick Negative (Negative); Leukocyte Esterase-Dipstick Negative /ul (Negative); Nitrite-Dipstick Negative (Negative); Occult Blood-Urine 25 /ul (Negative); Protein-Dipstick Negative (Negative); Urine Bilirubin Dipstick Negative (Negative); Urine Clarity Clear (Clear); Urine Urobilinogen Normal (Normal)
[2023-07-28 13:50] LABS: Red Blood Cells-Urine 0-5 SEEN /hpf (0-5)
--- NOTE | 2023-07-28 14:15 | RAD_ITS ---
STUDY: X-RAY CHEST REASON FOR EXAM: Female, 82 years old. Cough TECHNIQUE: Single AP portable view of the chest. COMPARISON: Comparison is made with prior study of September 24, 2022. FINDINGS: The lungs are clear and expanded. There is no demonstrated pleural abnormality. Normal size heart. Normal mediastinum and surjit. Normal visualized pulmonary arteries. There is atherosclerotic calcification of the aortic arch with tortuosity. There are degenerative changes of the visualized thoracic spine. There is degenerative osteoarthritis of the bilateral shoulders. There is no demonstrated abnormality of the visualized soft tissue structures of the upper abdomen. RAD/Chest 1 View (Portable) IMPRESSION: Normal x-ray examination of the chest. Electronically Signed: Macario Delong MD at 14:41 EST ,
[2023-07-28] MEDS: 0.9% Normal Saline (1000mL) 1,000 ML 999 ML IV (14:51)
[2023-07-28 15:00] VITALS: BP 114/68; PULSE 68; RESP 16; O2SAT 100
[2023-07-28 16:09] VITALS: BP 112/62; PULSE 76; RESP 16; TEMP 36.8; O2SAT 99
== END 2023-07-28 16:10 | disposition home or self-care (01) ==
PROVIDERS: Emergency Provider Emergency Medicine; PCP Internal Medicine; Visit Provider Emergency Medicine
DX: R19.7 Diarrhea, unspecified (principal); C91.10 Chronic lymphocytic leukemia of B-cell type not having achieved remission; J06.9 Acute upper respiratory infection, unspecified; E78.5 Hyperlipidemia, unspecified; I10 Essential (primary) hypertension; E86.0 Dehydration
CPT/HCPCS: 71045; 80053; 81001; 85025; 87428; 96360; 96361; 99283; J7030; A4216

== ENCOUNTER 2024-06-20 13:20 | Emergency (ER) | payer MEDICARE, OTHER, SELFPAY ==
[2024-06-20 13:21] VITALS: BP 144/54; PULSE 82; RESP 16; TEMP 36.8; O2SAT 99; BMI 28.7
--- NOTE | 2024-06-20 13:52 | EKG12_ITS ---
Test Reason : Blood Pressure : */* mmHG Vent. Rate : 74 BPM Atrial Rate : 74 BPM P-R Int : 172 ms QRS Dur : 90 ms QT Int : 366 ms P-R-T Axes : 59 47 47 degrees QTcB Int : 406 ms Normal sinus rhythm Normal ECG Reconfirmed by FEDERICO SALAS, CARMEN ([id number]), manuscript editor PRAKASH NOBLES ([id number]) on 06/21/2024 8:55:05 AM Referred By: Confirmed By: CARMEN CABALLERO MD
[2024-06-20 14:02] VITALS: PULSE 77; RESP 18; O2SAT 99
[2024-06-20 14:07] LABS: Absolute Lymphocyte Count 12.53 X10^3/uL (0.83-4.51); Absolute Neutrophil Count 5.9 X10^3/uL (2.0-7.7); Basophil# 0.06 X10^3/uL; Basophil% 0.3 % (0-1); Eosinophil# 0.13 X10^3/uL; Eosinophils% 0.7 % (0-5); Hematocrit 34.9 % (37-47); Hemoglobin 10.9 g/dL (12.0-15.0); Lymphocyte # 12.53 X10^3/ul (0.83-4.51); Lymphocyte % 64.2 % (19-41); Mean Corp Hgb Conc 31.2 g/dL (32-36); Mean Corpuscular Hgb 29.1 pg (27.0-32.0); Mean Corpuscular Volume 93.3 fL (81-99); Mean Platelet Vol. 11.3 fl (6.2-12.0); Monocyte# 0.75 X10^3/uL; Monocyte% 3.8 % (0-10); NRBC Flagged by Analyzer 0 % (0-5); Neutrophil # 5.88 X10^3/uL (2.7-7.7); Neutrophil % 30.1 % (47-70); POSITIVE DIFFERENTIAL YES; Platelet Count 336 K/mm3 (150-450); RBC Distribution Width CV 15.1 % (11.6-14.6); RBC Distribution Width SD 50.4 fl (35.1-43.9); Red Blood Count 3.74 M/mm3 (4.2-5.4); White Blood Count 19.5 K/mm3 (4.4-11.0)
[2024-06-20 14:10] LABS: Differential Indicated SCAN CRITERIA MET
[2024-06-20 14:22] LABS: Anion Gap 5 (5-15); BUN 37 mg/dL (7-18); BUN/Creat Ratio 23.3 RATIO (10-20); Calcium,Total 8.9 mg/dL (8.5-10.1); Chloride 107 mmol/L (98-107); Creatinine, Serum 1.59 mg/dL (0.55-1.02); EST Glomerular Filtration Rate 33 mL/min (>60); Est Glom Filt Rate - Afr Amer 40 mL/min (>60); Estimated Creatinine Clearance 27.68 ml/min; Glucose 109 mg/dL (74-106); Potassium 4.8 mmol/L (3.5-5.1); Sodium Level 138 mmol/L (136-145)
--- NOTE | 2024-06-20 14:48 | EX.ED.DYSGE1 ---
HPI History of Present Illness Chief Complaint: General Illness Informant: patient, spouse/S.O. and family Narrative Narrative: Patient presents here with spouse and daughter for evaluation. Symptoms of increased palpitations heart rate in the 80s. She is on metoprolol for hypertension and states pulse typically low in the 60s. She has been feeling jitteriness over the last week. She states May a filled out with friends, one of her friends had COVID she started having symptoms a few days later. Sinus congestion cough diarrhea decreased appetite. Cough has improved. She she has been feeling slightly fatigued that was improving. However states jitteriness over the last week, she checked her blood pressure and heart rate daily. Blood pressure stable her pulse was 86. She states she wanted come to the ED secondary to testing being able to be performed. Denies chest or abdominal pain. Denies urinary symptoms. History of CLL reports her white blood cells typically in the 20s. She is followed by Dr. Benz. 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 Traumatic open wound of right lower leg Osteopenia after menopause Diverticulosis Elevated serum creatinine Abnormal heart rhythm Hyperlipidemia Hypertension Eczema Psoriasis Chronic lymphocytic leukemia Home Medications ?Medication ?Instructions ?Recorded ?Last Taken ?Type cholecalciferol (vitamin D3) 25 1,000 unit PO DAILY vitamin 09/26/15 07/28/23 History mcg (1,000 unit) tablet (Vitamin D3) multivitamin with folic acid 400 1 tab PO DAILY vitamin 09/26/15 07/28/23 History mcg tablet (Thera) simvastatin 10 mg tablet 10 mg PO QHS cholesterol 02/24/18 07/27/23 History fluticasone propionate 50 1 spray DAILY PRN Congestion 09/05/18 Unknown History mcg/actuation nasal spray,suspension metoprolol tartrate 25 mg tablet 12.5 mg PO BID 04/16/21 07/28/23 History amlodipine 2.5 mg tablet 2.5 mg PO DAILY 02/14/22 07/28/23 History ibrutinib 420 mg tablet (Imbruvica) 420 mg PO DAILY #28 tabs 07/08/23 07/28/23 Rx losartan 100 mg tablet 100 mg PO DAILY 06/20/24 Unknown History Allergy/AdvReac Type Severity Reaction Status Date / Time meloxicam AdvReac Intermediate Swelling Verified 06/20/24 13:23 aspirin AdvReac thin skin Verified 06/20/24 13:23 Family History Mother Ovarian cancer Colon cancer Father Kidney disease Surgical History History of exploratory laparotomy History of D&C History of appendectomy History of cholecystectomy History of cataract surgery History of sinus surgery History of foot surgery History of sinus surgery Social History household members: none Smoking Status: Never smoker substance use type: does not use ROS ROS ED Constitutional Constitutional ED: Denies chills, fever(s) or sweats Eyes Eyes: Denies change in vision ENT ENT ED: Denies dysphagia or sore throat Cardiovascular Cardiovascular: Reports palpitations; Denies chest pain, leg edema or racing heartbeat Respiratory/Chest Respiratory/Chest: Denies cough, dyspnea or dyspnea on exertion Gastrointestinal Gastrointestinal: Denies abdominal pain, diarrhea, nausea or vomiting Genitourinary Genitourinary ED: Denies dysuria, hematuria or urinary frequency Musculoskeletal Musculoskeletal: Denies back pain, extremity pain or neck pain Integumentary Denies rash or wounds Neurologic Neurologic: Denies headache(s), paresthesias or weakness EXAM Physical Exam Const Vital Signs: 06/20/24 13:21 06/20/24 14:02 06/20/24 14:02 Temperature 98.2 F Temperature Source Oral Pulse Rate 82 77 Respiratory Rate 16 18 Respiratory Effort Normal Non-Labored Respiratory Pattern Normal Blood Pressure 144/54 H Blood Pressure Mean 84 Pulse Ox 99 99 Oxygen Delivery Method Room Air Room Air 06/20/24 15:24 06/20/24 16:00 Temperature 98 F Temperature Source Pulse Rate 71 72 Respiratory Rate 18 14 Respiratory Effort Respiratory Pattern Blood Pressure 142/54 H 142/53 H Blood Pressure Mean 83 82 Pulse Ox 99 99 Oxygen Delivery Method Room Air Positive well nourished and well developed General Appearance ED: well developed and NAD HEENT Reports moist mucous membranes normocephalic and atraumatic Eyes EOMs intact bilaterally and conjunctivae normal General Eye ED: Yes normal appearance of both eyes Neck no lymphadenopathy and supple General: Negative for tenderness Chest Wall Chest: Negative for tenderness Resp normal respiratory effort and normal air movement Effort and Inspection: symmetric chest movement; Negative for respiratory distress Cardio regular rate, regular rhythm and no murmurs Peripheral Pulses: pulses 2+ throughout GI normal to inspection, nondistended, normoactive bowel sounds and non-tender Palpation: Negative for guarding or rebound tenderness present Back/Spine no CVA tenderness and no thoracic nor lumbar tenderness Extremity normal to inspection General Extremety ED: Negative for edema or tenderness General Extremity: Negative for edema Neuro oriented x3 and no sensory deficits noted Sensorium / Orientation: awake and alert Skin no rashes or lesions noted and no wounds MDM MDM MDM Narrative Medical decision making narrative: Interventions / MDM: Differential diagnosis: Palpitations, viral syndrome, history of CLL, CKD Diagnosis considered but do not suspect: No clinical pneumonia My EKG interpretation: Sinus rhythm 74, no ST or T wave changes. QTc 406. Imaging independently reviewed and interpreted by myself: N/A External documents reviewed: N/A Test considered but not ordered:N/A ED course: Patient post COVID symptoms. Clinically improving except for jitteriness patient felt palpitations today they had a concern. EKG obtained sinus rhythm rate of 74. Will check labs and urine. Workup stable leukocytosis of 19.5 with CLL history. Stable creatinine 1.59 in the middle of her previous to range of 1.3-1.7. Clinically feeling better on reevaluation. Discussed likely postviral syndrome with COVID exposure. EKG sinus rhythm. CKD history we will follow-up with her tool maintenance technician tomorrow. Urine noted 25 leukocytes 1+ bacteria. She is asymptomatic therefore urine culture sent. She is reassured on findings. Outpatient follow-up. All questions were answered. Re-evaluation: stable Disposition discussed with patient/family/significant other: Patient Case discussed with consulting clinician: N/A This note was generated with [employer] dictation software. It may contain incorrect words, spelling, and punctuation that were not noted in checking the note before signing. Lab Data Attestation: I reviewed the patient's lab results. Labs: Laboratory Results - last 24 hr 06/20/24 06/20/24 13:57 14:55 WBC 19.5 H RBC 3.74 L Hgb 10.9 L Hct 34.9 L MCV 93.3 MCH 29.1 MCHC 31.2 L RDW Std Deviation 50.4 H RDW Coeff of Yolie 15.1 H Plt Count 336 MPV 11.3 Immature Gran % (Auto) 0.900 Neut % (Auto) 30.1 L Lymph % (Auto) 64.2 H [place] % (Auto) 3.8 Eos % (Auto) 0.7 Baso % (Auto) 0.3 Absolute Neuts (auto) 5.9 Absolute Lymphs (auto) 12.53 H Nucleated RBC % 0 Sodium 138 Potassium 4.8 Chloride 107 Carbon Dioxide 26.0 Anion Gap 5 BUN 37 H Creatinine 1.59 H Estim Creat Clear Calc 27.68 Est GFR (MDRD) Af Amer 40 L Est GFR (MDRD) Non-Af 33 L BUN/Creatinine Ratio 23.3 H Glucose 109 H Calcium 8.9 Urine Color Yellow Urine Clarity Clear Urine pH 7.0 Ur Specific [place] 1.005 Urine Protein 15 H Urine Glucose (UA) Normal Urine Ketones Negative Urine Occult Blood 25 H Urine Nitrite Negative Urine Bilirubin Negative Urine Urobilinogen Normal Ur Leukocyte Esterase 25 H Urine RBC 0 SEEN Urine WBC 0-5 SEEN Ur Squamous Epith Cells 0 SEEN Urine Bacteria 1+ Urine Mucus 0 SEEN Discharge Plan Triage Chief Complaint: General Illness ED Provider: Parish Zendejas Dx/Rx/DC Orders Clinical Impression: Palpitations, Postviral fatigue syndrome, Chronic lymphocytic leukemia, CKD (chronic kidney disease) Instructions: CKD Dc, ED Palpitations Prescriptions: No Action cholecalciferol (vitamin D3) [Vitamin D3] 1,000 UNIT tablet 1,000 unit PO DAILY Patient Comments: supplement multivitamin with folic acid [Thera] 1 TABLET tablet 1 tab PO DAILY Patient Comments: vitamin simvastatin 10 MG tablet 10 mg PO QHS fluticasone propionate 1 SPRAY spray,suspension 1 spray NASAL DAILY PRN (Reason: Congestion) metoprolol tartrate 25 mg tablet 12.5 mg PO BID amlodipine 2.5 mg tablet 2.5 mg PO DAILY losartan 100 mg tablet 100 mg PO DAILY Imbruvica 420 mg tablet 420 mg PO DAILY Qty: 28 12RF Primary Care Provider: Gail Lopes Referrals: Gail Lopes MD [Primary Care Provider] - 1 Week Activity Restrictions/Additional Instructions: EKG normal sinus rhythm. Your labs stable your creatinine 1.59 today. Your white count 19.5. Stable from previous labs. Keep your follow-up with your tool maintenance technician tomorrow. Your symptoms likely from viral syndrome with your COVID exposure. Urine culture pending. You will be contacted if treatment is recommended from culture. Continue oral fluids for hydration. Print Language: [place] Disposition Disposition: Home, Self Care Discharge Date/Time: 06/20/24 16:04
[2024-06-20 15:00] LABS: Mucous, Urine 0 SEEN /hpf (<or=2+); Red Blood Cells-Urine 0 SEEN /hpf (0-5); Squamous Epithelial Cells - UA 0 SEEN /hpf (5-10)
[2024-06-20 15:04] LABS: Color, Urine Yellow (Yellow); Glucose, Dipstick Normal (Normal); Ketone-Dipstick Negative (Negative); Leukocyte Esterase-Dipstick 25 /ul (Negative); Nitrite-Dipstick Negative (Negative); Occult Blood-Urine 25 /ul (Negative); Protein-Dipstick 15 mg/dl (Negative); Specific Gravity, Urine 1.005 (1.002-1.030); Urine Bilirubin Dipstick Negative (Negative); Urine Clarity Clear (Clear); Urine Urobilinogen Normal (Normal)
[2024-06-20 15:18] LABS: Bacteria 1+ /hpf (None Seen); White Blood Cells 0-5 SEEN /hpf (0-5)
[2024-06-20 15:24] VITALS: BP 142/54; PULSE 71; RESP 18; O2SAT 99
[2024-06-20 16:00] VITALS: BP 142/53; PULSE 72; RESP 14; TEMP 36.6; O2SAT 99
== END 2024-06-20 16:04 | disposition home or self-care (01) ==
PROVIDERS: Emergency Provider Emergency Medicine; PCP Internal Medicine; Visit Provider Emergency Medicine
DX: R00.2 Palpitations (principal); C91.10 Chronic lymphocytic leukemia of B-cell type not having achieved remission; G93.31 Postviral fatigue syndrome; I12.9 Hypertensive chronic kidney disease with stage 1 through stage 4 chronic kidney disease, or unspecified chronic kidney disease; N18.9 Chronic kidney disease, unspecified; E78.5 Hyperlipidemia, unspecified; Z79.899 Other long term (current) drug therapy; Z90.49 Acquired absence of other specified parts of digestive tract
CPT/HCPCS: 80048; 81001; 85025; 87077; 87086; 87088; 87186; 93005; 99284; A4216

== ENCOUNTER 2024-11-09 15:48 | Emergency (ER) | payer MEDICARE, OTHER, SELFPAY ==
[2024-11-09 15:49] VITALS: BP 142/63; PULSE 73; RESP 16; TEMP 36.1; O2SAT 98; BMI 28.3
--- NOTE | 2024-11-09 16:04 | ED.RN ---
PT DX WITH INGUINAL HERNIA ON 11/07/24. PAIN HAS BEEN INTERMITTENT BUT INCREASING. PT IS SCHEDULED TO SEE THE SURGEON ON 11/29/24. PT STATES I DON'T THINK I CAN WAIT THAT LONG. SON IS AT THE BEDSIDE PRESENT WITH PT. PT IS CALM AND SHOWING NO SIGNS OF DISTRESS.
--- NOTE | 2024-11-09 16:13 | CT_ITS ---
PROCEDURE: ABDOMEN/PELVIS W IV CONT ONLY 11/09/2024 REASON FOR EXAM: 83-year-old female, RLQ ABDOMINAL PAIN, history of CLL currently on chemotherapy. History of right inguinal hernia with pain. TECHNIQUE: Abdomen and pelvis CT with intravenous contrast. Coronal and Sagittal reconstruction series were provided. PATIENT PREPARATION: Per protocol ORAL CONTRAST TYPE: None. CONTRAST: Isovue 370 VOLUME: 100 mL One or more dose reduction techniques were used (e.g., Automated exposure control, adjustment of the mA and/or kV according to patient size, use of iterative reconstruction technique. RADIATION DOSE SUMMARY: CTDlvol: 25 mGy DLP: 814 mGycm COMPARISON: None. FINDINGS: Lung bases: Bibasilar atelectasis/scarring. The heart is normal in size with coronary artery, mitral annular and aortic valvular calcifications. Liver: The liver is normal in size. There are several small areas of hypodensity throughout the liver with central area of hyperenhancement. No obvious connection to the biliary tree. The major portal veins are patent. Gallbladder: Prior cholecystectomy. Spleen: The spleen is normal in size with a few scattered areas of central hypodensity with central focus of hyperenhancement. Pancreas: Unremarkable. Adrenals: Unremarkable. Kidneys: Bilateral renal cysts and additional hypodensities. No hydronephrosis or nephrolithiasis. Bladder: Distended and unremarkable. Reproductive Organs: Normal uterine size and contour for patient age. Ovaries are unremarkable. Bowel: The bowel loops are normal in caliber. Trace left upper quadrant ascites along the splenic margin. No pneumoperitoneum. Normal appendix. Lymph nodes: Scattered retroperitoneal and mesenteric nodes, compatible with reported CLL. Vasculature: Severe mixed calcific plaque of the aortoiliac vessels. Bones/soft tissues: Small right inguinal hernia containing fat and a lymph node. Thoracolumbar spondylosis. Bilateral hip and SI arthrosis. CT/Abdomen/Pelvis W IV Cont ONLY IMPRESSION: 1. No acute abdominopelvic finding. 2. Scattered areas of hypodensity within the liver and spleen, with central foc us of hyperenhancement. Findings are indeterminate and may represent Caroli disease, side effect from reported chemo therapy, or infection due to possible immunocompromised status (such as candidiasis). Clinical and laboratory correl ation recommended. 3. Small right inguinal hernia containing fat and a lymph node. Reading Location: [id number]
--- NOTE | 2024-11-09 16:14 | ED.VIS.GI ---
HPI HPI - GI History of Present Illness Chief Complaint: Abd Pain Detail of Chief Complaint: Abdominal pain Informant: patient Narrative Narrative: Patient presents to the emergency department complaint of abdominal pain that is worse today. She was diagnosed with a hernia in the right inguinal region on November 07. She had a CT scan to image her abdomen about 10 days ago or so. Patient was scheduled to follow-up with general surgeon Dr. Arevalo on November 29. Patient denies fever. She denies nausea or vomiting. She states the pain is just more persistent today. She denies any blood in her stool. 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 Traumatic open wound of right lower leg Osteopenia after menopause Diverticulosis Elevated serum creatinine Abnormal heart rhythm Hyperlipidemia Hypertension Eczema Psoriasis Chronic lymphocytic leukemia Home Medications ?Medication ?Instructions ?Recorded ?Last Taken ?Type cholecalciferol (vitamin D3) 25 1,000 unit PO DAILY vitamin 09/26/15 07/28/23 History mcg (1,000 unit) tablet (Vitamin D3) multivitamin with folic acid 400 1 tab PO DAILY vitamin 09/26/15 07/28/23 History mcg tablet (Thera) simvastatin 10 mg tablet 10 mg PO QHS cholesterol 02/24/18 11/08/24 History fluticasone propionate 50 1 spray DAILY PRN Congestion 09/05/18 Unknown History mcg/actuation nasal spray,suspension metoprolol tartrate 25 mg tablet 12.5 mg PO BID 04/16/21 11/09/24 History amlodipine 2.5 mg tablet 2.5 mg PO DAILY 02/14/22 07/28/23 History losartan 100 mg tablet 100 mg PO DAILY 06/20/24 11/09/24 History ibrutinib 420 mg tablet (Imbruvica) 420 mg PO DAILY #28 tabs 07/17/24 11/09/24 Rx cephalexin 500 mg capsule 500 mg PO 3XD #21 CAPSULES 11/09/24 Unknown Rx Allergy/AdvReac Type Severity Reaction Status Date / Time meloxicam AdvReac Intermediate Swelling Verified 11/09/24 16:05 aspirin AdvReac thin skin Verified 11/09/24 16:05 Family History Mother Ovarian cancer Colon cancer Father Kidney disease Surgical History History of exploratory laparotomy History of D&C History of appendectomy History of cholecystectomy History of cataract surgery History of sinus surgery History of foot surgery History of sinus surgery Social History household members: none Smoking Status: Never smoker substance use type: does not use ROS ROS ED Review of Systems ROS Unobtainable: other Constitutional Constitutional ED: Reports lethargy; Denies chills, fever(s), sweats or weight loss Eyes Eyes: Denies blurry vision, change in vision or diplopia ENT ENT ED: Denies rhinorrhea or sore throat Cardiovascular Cardiovascular: Denies chest pain, orthopnea or racing heartbeat Respiratory/Chest Respiratory/Chest: Denies cough, dyspnea, dyspnea on exertion, orthopnea or sputum Gastrointestinal Gastrointestinal: Reports abdominal pain; Denies diarrhea, nausea or vomiting Genitourinary Genitourinary ED: Denies dysuria, hematuria or urinary frequency Musculoskeletal Musculoskeletal: Denies arthralgias, back pain, myalgias or neck pain Integumentary Denies abscess, Abrasions or rash Neurologic Neurologic: Denies headache(s) or weakness Psychiatric Psychiatric: Denies anxiety, depression or suicidal thoughts Endocrine Endocrinology: Denies polydipsia, polyphagia or polyuria Hematologic/Lymphatic Hematologic/Lymphatic: Denies easy bleeding, easy bruising or lymphadenopathy Allergic/Immunologic Allergic/Immunologic ED: Denies mouth swelling, tongue swelling or urticaria EXAM Physical Exam Const Vital Signs: 11/09/24 15:49 11/09/24 18:00 Temperature 97 F L Temperature Source Temporal Pulse Rate 73 68 Respiratory Rate 16 18 Blood Pressure 142/63 H 101/65 Blood Pressure Mean 89 77 Pulse Ox 98 97 Oxygen Delivery Method Room Air Room Air Positive well nourished and well developed General Appearance ED: well developed and NAD HEENT Reports TM's clear and moist mucous membranes normocephalic and atraumatic; Negative for trauma or tenderness Tympanic Membrane ED: Yes TM's clear Eyes PERRL and EOMs intact bilaterally General Eye ED: Negative for pale conjunctiva or scleral icterus Neck no lymphadenopathy, supple and no JVD General: Negative for tenderness Chest Wall inspection of chest normal and palpation of chest normal Chest: Negative for tenderness Resp normal respiratory effort and clear to auscultation bilaterally Effort and Inspection: Negative for respiratory distress or pain with movement Auscultation: Negative for rhonchi, wheezes or diminished lung sounds Cardio regular rate, regular rhythm, S1 normal heart sound, S2 normal heart sound and no murmurs Peripheral Pulses: pulses 2+ throughout GI normal to inspection, nondistended, normoactive bowel sounds, soft to palpation, non-distended and no masses; Negative for non-tender GI Narrative: Patient with mild tenderness over the right lower quadrant on exam. While lying supine difficult to palpate a hernia in the right inguinal region. With standing she does have some fullness noted in the right inguinal lower abdomen/pelvis. I feel like the bowel does reduce but then herniates back out after I decrease pressure to the area. There is no erythema or warmth. No induration. Back/Spine no CVA tenderness and no thoracic nor lumbar tenderness Extremity normal to inspection General Extremety ED: Negative for edema General Extremity: Negative for edema Neuro oriented x3, CN's II-XII intact bilaterally, no sensory deficits noted and gait normal Sensorium / Orientation: awake, alert, oriented to person, oriented to place and oriented to time Motor Exam: strength 5/5 throughout and strength abnormal Psych mental status grossly normal Skin no rashes or lesions noted and no wounds MDM MDM MDM Narrative Medical decision making narrative: Patient presents with right lower abdomen pain with history of right inguinal hernia. Currently being treated for CLL. Clinically she looks well. Suspicion for strangulation on exam is very low. IV line was established. Will evaluate for other possible causes of her pain. CBC with differential showed an elevated white count of 14.1 which is chronically elevated due to her CLL. Hemoglobin 11.7 with platelet count 156. Chemistries unremarkable. BUN 29 and creatinine 1.54. Lactate was normal at less than 1. LFTs were unremarkable. Urinalysis positive for 500 leukocyte esterase and 10-25 WBCs and +1 bacteria. Urine culture was sent. I did start her on Keflex p.o. Patient had a CT scan of the abdomen pelvis read by radiology as no acute intra-abdominal process. She had some lesions on her liver and spleen of unknown etiology. Patient is aware of these findings and has an ultrasound scheduled to evaluate these lesions further. She does have a small inguinal hernia containing fat no bowel no evidence of strangulation or incarceration. I discussed results with patient. Will discharge to home. She is advised to keep her appointment with her surgeon. She does not want thing for pain for home. Will treat her with Keflex for her UTI. Lab Data Attestation: I reviewed the patient's lab results. Labs: Laboratory Results - last 24 hr 11/09/24 11/09/24 16:35 17:10 WBC 14.1 H RBC 3.99 L Hgb 11.7 L Hct 35.8 L MCV 89.7 MCH 29.3 MCHC 32.7 RDW Std Deviation 48.2 H RDW Coeff of Yolie 14.7 H Plt Count 156 MPV 12.4 H Immature Gran % (Auto) 0.400 Neut % (Auto) 30.8 L Lymph % (Auto) 63.6 H [place] % (Auto) 4.7 Eos % (Auto) 0.3 Baso % (Auto) 0.2 Absolute Neuts (auto) 4.4 Absolute Lymphs (auto) 8.99 H Nucleated RBC % 0 Sodium 135 Potassium 4.9 Chloride 103 Carbon Dioxide 19.8 L Anion Gap 13 BUN 29 H Creatinine 1.54 H Estim Creat Clear Calc 28.38 L Est GFR (MDRD) Non-Af 34 L BUN/Creatinine Ratio 18.7 Glucose 85 Lactic Acid < 1.0 Calcium 9.1 Total Bilirubin 1.23 AST 23 ALT 17 Alkaline Phosphatase 117 H Total Protein 5.8 L Albumin 4.1 Globulin 1.7 L Albumin/Globulin Ratio 2.4 Urine Color Yellow Urine Clarity Sl. Cloudy Urine pH 6.5 Ur Specific [place] 1.005 Urine Protein 15 H Urine Glucose (UA) Normal Urine Ketones Negative Urine Occult Blood 50 H Urine Nitrite Negative Urine Bilirubin Negative Urine Urobilinogen Normal Ur Leukocyte Esterase 500 H Urine RBC 0-5 SEEN Urine WBC 10-25 SEEN Ur Squamous Epith Cells 0-5 SEEN Urine Bacteria 1+ Urine Mucus 0 SEEN Radiography Diagnostic Testing: Clinical Impression(s) from Imaging Studies Abdomen/Pelvis CT 11/09/24 16:13 IMPRESSION: 1. No acute abdominopelvic finding. 2. Scattered areas of hypodensity within the liver and spleen, with central focus of hyperenhancement. Findings are indeterminate and may represent Caroli disease, side effect from reported chemotherapy, or infection due to possible immunocompromised status (such as candidiasis). Clinical and laboratory correlation recommended. 3. Small right inguinal hernia containing fat and a lymph node. Reading Location: [facility] Discharge Plan Triage Chief Complaint: Abd Pain ED Provider: Christel Monteiro Dx/Rx/DC Orders Clinical Impression: Abdominal pain, Acute UTI, Inguinal hernia Instructions: ED Abdominal Pain Unkn Cause Fem, ED Hernia (Adult), ED Cystitis Female Adult Prescriptions: New cephalexin 500 mg capsule 500 mg PO 3XD Qty: 21 0RF No Action cholecalciferol (vitamin D3) [Vitamin D3] 1,000 UNIT tablet 1,000 unit PO DAILY Patient Comments: supplement multivitamin with folic acid [Thera] 1 TABLET tablet 1 tab PO DAILY Patient Comments: vitamin simvastatin 10 MG tablet 10 mg PO QHS fluticasone propionate 1 SPRAY spray,suspension 1 spray NASAL DAILY PRN (Reason: Congestion) metoprolol tartrate 25 mg tablet 12.5 mg PO BID amlodipine 2.5 mg tablet 2.5 mg PO DAILY losartan 100 mg tablet 100 mg PO DAILY Imbruvica 420 mg tablet 420 mg PO DAILY Qty: 28 0RF Primary Care Provider: Gail Lopes Referrals: Gail Lopes MD [Primary Care Provider] - Print Language: Georgian Disposition Disposition: Home, Self Care
[2024-11-09 16:59] LABS: Absolute Lymphocyte Count 8.99 X10^3/uL (0.83-4.51); Absolute Neutrophil Count 4.4 X10^3/uL (2.0-7.7); Basophil# 0.03 X10^3/uL; Basophil% 0.2 % (0-1); Eosinophil# 0.04 X10^3/uL; Eosinophils% 0.3 % (0-5); Hematocrit 35.8 % (37-47); Hemoglobin 11.7 g/dL (12.0-15.0); Lymphocyte # 8.99 X10^3/ul (0.83-4.51); Lymphocyte % 63.6 % (19-41); Mean Corp Hgb Conc 32.7 g/dL (32-36); Mean Corpuscular Hgb 29.3 pg (27.0-32.0); Mean Corpuscular Volume 89.7 fL (81-99); Mean Platelet Vol. 12.4 fl (6.2-12.0); Monocyte# 0.66 X10^3/uL; Monocyte% 4.7 % (0-10); NRBC Flagged by Analyzer 0 % (0-5); Neutrophil # 4.35 X10^3/uL (2.7-7.7); Neutrophil % 30.8 % (47-70); POSITIVE DIFFERENTIAL YES; Platelet Count 156 K/mm3 (150-450); RBC Distribution Width CV 14.7 % (11.6-14.6); RBC Distribution Width SD 48.2 fl (35.1-43.9); Red Blood Count 3.99 M/mm3 (4.2-5.4); White Blood Count 14.1 K/mm3 (4.4-11.0)
[2024-11-09 17:20] LABS: Mucous, Urine 0 SEEN /hpf (<or=2+)
[2024-11-09 17:27] LABS: Color, Urine Yellow (Yellow); Glucose, Dipstick Normal (Normal); Ketone-Dipstick Negative (Negative); Leukocyte Esterase-Dipstick 500 /ul (Negative); Nitrite-Dipstick Negative (Negative); Occult Blood-Urine 50 /ul (Negative); Protein-Dipstick 15 mg/dl (Negative); Specific Gravity, Urine 1.005 (1.002-1.030); Urine Bilirubin Dipstick Negative (Negative); Urine Clarity Sl. Cloudy (Clear); Urine Urobilinogen Normal (Normal); Urine pH 6.5 (5.0 - 8.0)
[2024-11-09 17:32] LABS: Differential Indicated SCAN CRITERIA MET
[2024-11-09 17:41] LABS: ALB/GLOB Ratio 2.4 RATIO (0.9-2.4); AST(SGOT) 23 U/L (<=31); Alanine Aminotransfer ALT/SGPT 17 U/L (<=34); Albumin, Serum 4.1 g/dL (3.4-4.8); Alkaline Phosphatase 117 U/L (35-104); Anion Gap 13 (5-15); BUN 29 mg/dL (4-19); BUN/Creat Ratio 18.7 RATIO (10-20); Calcium,Total 9.1 mg/dL (7.6-11.0); Carbon Dioxide 19.8 mmol/L (21.0-32.0); Chloride 103 mmol/L (98-108); Creatinine, Serum 1.54 mg/dL (0.70-1.20); EST Glomerular Filtration Rate 34 (>60); Estimated Creatinine Clearance 28.38 ml/min (50-250); Globulin 1.7 g/dL (2.2-4.2); Glucose 85 mg/dL (70-99); Potassium 4.9 mmol/L (3.3-5.1); Protein, Total 5.8 g/dL (5.9-8.4); Sodium Level 135 mmol/L (133-145); Total Bilirubin 1.23 mg/dL (0.00-1.30)
[2024-11-09 17:46] LABS: Lactic Acid < 1.0 mmol/L (0.0-2.0)
[2024-11-09 18:00] VITALS: BP 101/65; PULSE 68; RESP 18; O2SAT 97
[2024-11-09 18:23] LABS: White Blood Cells 10-25 SEEN /hpf (0-5)
[2024-11-09 18:24] LABS: Bacteria 1+ /hpf (None Seen); Red Blood Cells-Urine 0-5 SEEN /hpf (0-5)
[2024-11-09 18:25] LABS: Squamous Epithelial Cells - UA 0-5 SEEN /hpf (5-10)
[2024-11-09 18:52] LABS: Atypical Lymphocyte 2+ %
[2024-11-09 18:53] LABS: Reactive Lymphocyte 3+; Smudge Cells 1+
[2024-11-09 18:54] LABS: Ovalocyte 1+; Pathologist Review May foll
[2024-11-09] MEDS: Cephalexin 250 MG Capsule 500 MG PO (19:18)
== END 2024-11-09 19:30 | disposition home or self-care (01) ==
PROVIDERS: Emergency Provider Emergency Medicine; PCP Internal Medicine; Visit Provider Emergency Medicine
DX: R10.9 Unspecified abdominal pain (principal); C91.10 Chronic lymphocytic leukemia of B-cell type not having achieved remission; N39.0 Urinary tract infection, site not specified; E78.5 Hyperlipidemia, unspecified; I10 Essential (primary) hypertension; Z79.899 Other long term (current) drug therapy; Z90.49 Acquired absence of other specified parts of digestive tract; K40.90 Unilateral inguinal hernia, without obstruction or gangrene, not specified as recurrent
CPT/HCPCS: 74177; 80053; 81001; 83605; 85025; 87077; 87086; 87088; 87186; 99283; Q9967

== ENCOUNTER → 2024-11-30 | Outpatient (CLI) | payer MEDICARE, OTHER, SELFPAY ==
[2024-11-30] VITALS (14 sets, daily range): BP systolic 105–140; BP diastolic 10–68; PULSE 59–74; RESP 12–24; TEMP 37.3; O2SAT 96–100; BMI 29.2
--- NOTE | 2024-11-30 08:50 | CT_ITS ---
PROCEDURE: BIOPSY/INJ OR NEEDLE PLACEMENT 11/30/2024 REASON FOR EXAM: LIVER LESION ON CAT SCAN TECHNIQUE: CT-guided liver biopsy. The procedure as well as the benefits and possible complications including infection and bleeding were explained to the patient. Informed consent was obtained. The patient was in the supine position. The overlying skin was prepped and draped in the usual sterile fashion. Conscious sedation was performed. The patient received 2 mg of Versed and 50 mcg of fentanyl intravenously. Conscious sedation was started at 9:40 a.m. and terminated at 10:07 a.m.. The patient was independently monitored by the department nurse. Following local anesthetic application, 5 core biopsies utilizing 18 gauge core biopsy needle system of a lesion in the right lobe of the liver was performed. The specimen was deemed adequate by the pathologist. The patient tolerated the procedure well. One or more dose reduction techniques were used (e.g., Automated exposure control, adjustment of the mA and/or kV according to patient size, use of iterative reconstruction technique). RADIATION DOSE SUMMARY: CTDlvol: 13 point 7 mGy DLP: 625.47 mGycm COMPARISON: Prior CT scan dated November 09, 2024. FINDINGS: Successful CT-guided liver biopsy. CT/Biopsy/Inj or Needle Placement IMPRESSION: Successful CT-guided liver biopsy. The patient tolerated the procedure well. No immediate complication was noted. Reading Location: [place] [id number]
[2024-11-30 09:03] LABS: Prothrombin Time (Protime)PT. 13.6 SECONDS (11.7-14.9)
[2024-11-30 09:04] LABS: Partial Thromboplast Time 27.4 Seconds (24.1-36.2)
[2024-11-30] MEDS: Midazolam 2 MG/2 ML Syringe IV ×2 (09:40→09:58)
[2024-11-30] MEDS: fentaNYL 100 MCG/2 ML Ampul IV ×2 (09:43→10:00)
[2024-11-30] MEDS: 0.9% Saline Lock 10 ML Syringe IV (09:44)
[2024-11-30] MEDS: Lidocaine 2% (20 ml mdv) 20 ML Vial INFILT (09:57)
--- NOTE | 2024-11-30 10:00 | ASPIGT_PTH ---
PATIENT: CAT BACA LOC: CT U#:[id number] AGE/SX: 84/F ROOM: RE11/30/[address]: Dr. Walter Story MD : [id number] BED: DIS: 11/30/2024 SPEC #: [id number] RECD: 11/30/24 10:39 STATUS: FRANCESCA REQ #: [id number] NAHED: 11/30/24 10:[address]: Walter Story DEPT: SURGICAL PATHOLOGY RECD BY: Eamon Moore ENTERED: 11/30/24 10:39 SP TYPE: ASP RAD OTHR DR: Dr. Gail Lopes MD Tissues: A - Liver, NOS Procedures: PAS with Diastase (control) FNA Specimen Adequacy Immunohistochemical Stains Special Stain Group II Special Stain Group I Surgery Specimen Level IV Surgery Specimen Level V AFB Stain (control) GMS Stain (control) Imprint (control) IHC Stain ADDITIONAL HEADER OPERATION: CT guided liver biopsy PRE-OP DIAGNOSIS: Liver lesion TISSUE SUBMITTED: A- Liver biopsy MICROSCOPIC DIAGNOSIS A. Liver, lesion, biopsy: * Hepatocytes with reactive change, focal chronic inflammation, and focal necrotizing granulomas. * Special stains for fungal and acid fast organisms plus additional special stains are pending and will be reported in an addendum. COMMENT The specimen is evaluated at the time of biopsy by Dr. Finley. Immediate Evaluation = 1. Hepatocytes and blood. 2. Few large cells with possible cytoplasmic inclusions. 3. Hepatocytes and blood. MICROSCOPIC DESCRIPTION Slides are reviewed. GROSS DESCRIPTION A. Received in formalin in a container labeled with the patient's name, date of , and with the accompanying paperwork indicating, liver lesion are multiple echols-pink core biopsies of soft tissue measuring 1.5 x 0.8 x 0.2 cm in aggregate. Submitted in toto in A1. [facility] 11-30-2024 CPT:68600,[id number] ADDENDUM ADDENDUM ADDENDUM ADDENDUM ADDENDUM ADDENDUM ADDENDUM ADDENDUM ADDENDUM ADDENDUM ADDENDUM ADDENDUM ADDENDUM ADDENDUM ADDENDUM ADDENDUM ADDENDUM ADDENDUM ADDENDUM ADDENDUM ADDENDUM ADDENDUM ADDENDUM 12/12/2024 15:46 ADDENDUM 01/15/2025 15:05 ADDENDUM 12/12/2024 15:46 ADDENDUM 12/12/2024 15:46 ADDENDUM 12/12/2024 15:46 ADDENDUM 12/12/2024 15:46 This addendum is to report the results of the following special stains: AFB stain is negative for acid fast bacilli. PASD and GMS stains are negative for fungal organisms. The slides/images were reviewed in intradepartmental consultation at the GI Pathology division [facility] ([facility]). There is a relatively prominent focus of monomorphic-appearing lymphocytes. Given the history of CLL, further evaluation with IHC is pending to rule out a lymphoproliferative disorder. The findings will be reported in a subsequent addendum. In addition, the liver shows mild portal chronic inflammation, mild bile duct proliferation and mild fibrosis (trichrome stain). Prussian blue stain is negative for iron. Reticulin stain shows a normal reticulin pattern. The etiology of the necrotizing granulomas is unknown. All matched controls reacted appropriately. These tests were developed and their performance characteristics determined by [facility]. They may not have been cleared or approved by the [place]. Food and Drug Administration. The FDA has determined that such clearance or approval is not necessary.? The above immunohistochemical/dualISH?markers are ordered and reviewed by the Pathologist. This addendum is added to incorporate an outside pathology consultation report. The case was examined at [facility] by Dr. Holt (#[id number]) and the following diagnosis was rendered. IGH/B-cell Gene Rearrangement tissue report: A. 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 Run and sample controls meet acceptable criteria. Please see complete above mentioned consultation report in EMR NOTE: THIS FINDING IS CONSISTENT WITH INVOLVEMENT OF THE LIVER BY CLL/SLL.
== END | disposition home or self-care (01) ==
LOC: CT 08:45
PROVIDERS: PCP Internal Medicine; Referring Provider Internal Medicine Medical Oncology; Visit Provider Internal Medicine Medical Oncology
DX: Z01.818 Encounter for other preprocedural examination (principal); K76.9 Liver disease, unspecified
CPT/HCPCS: 47000; 36415; 77012; 85610; 85730; 88172; 88305; 88307; 88313; 99156; A4216

== ENCOUNTER → 2024-12-08 | Outpatient (CLI) | payer MEDICARE, OTHER, SELFPAY ==
[2024-12-08 13:02] LABS: Bacteria 0 SEEN /hpf (None Seen); Mucous, Urine 0 SEEN /hpf (<or=2+); Red Blood Cells-Urine 0 SEEN /hpf (0-5)
[2024-12-08 13:05] LABS: Absolute Lymphocyte Count 11.47 X10^3/uL (0.83-4.51); Absolute Neutrophil Count 5.1 X10^3/uL (2.0-7.7); Basophil# 0.03 X10^3/uL; Basophil% 0.2 % (0-1); Eosinophil# 0.12 X10^3/uL; Eosinophils% 0.7 % (0-5); Hematocrit 35.9 % (37-47); Hemoglobin 11.3 g/dL (12.0-15.0); Lymphocyte # 11.47 X10^3/ul (0.83-4.51); Lymphocyte % 65.4 % (19-41); Mean Corp Hgb Conc 31.5 g/dL (32-36); Mean Corpuscular Hgb 29.5 pg (27.0-32.0); Mean Corpuscular Volume 93.7 fL (81-99); Mean Platelet Vol. 12.8 fl (6.2-12.0); Monocyte# 0.76 X10^3/uL; Monocyte% 4.3 % (0-10); NRBC Flagged by Analyzer 0 % (0-5); Neutrophil # 5.12 X10^3/uL (2.7-7.7); Neutrophil % 29.2 % (47-70); POSITIVE DIFFERENTIAL YES; Platelet Count 178 K/mm3 (150-450); RBC Distribution Width CV 15.9 % (11.6-14.6); RBC Distribution Width SD 54.4 fl (35.1-43.9); Red Blood Count 3.83 M/mm3 (4.2-5.4); White Blood Count 17.5 K/mm3 (4.4-11.0)
[2024-12-08 13:06] LABS: Color, Urine Yellow (Yellow); Glucose, Dipstick Normal (Normal); Ketone-Dipstick Negative (Negative); Leukocyte Esterase-Dipstick Negative /ul (Negative); Nitrite-Dipstick Negative (Negative); Occult Blood-Urine 50 /ul (Negative); Protein-Dipstick Negative (Negative); Specific Gravity, Urine 1.005 (1.002-1.030); Urine Bilirubin Dipstick Negative (Negative); Urine Clarity Clear (Clear); Urine Urobilinogen Normal (Normal); Urine pH 6.5 (5.0 - 8.0)
[2024-12-08 13:06] LABS: Differential Indicated SCAN CRITERIA MET
[2024-12-08 14:44] LABS: Squamous Epithelial Cells - UA 0-5 SEEN /hpf (5-10); White Blood Cells 0-5 SEEN /hpf (0-5)
[2024-12-08 14:48] LABS: ALB/GLOB Ratio 2.4 RATIO (0.9-2.4); AST(SGOT) 24 U/L (<=31); Alanine Aminotransfer ALT/SGPT 19 U/L (<=34); Albumin, Serum 4.2 g/dL (3.4-4.8); Alkaline Phosphatase 106 U/L (35-104); Anion Gap 11 (5-15); BUN 35 mg/dL (4-19); BUN/Creat Ratio 23.8 RATIO (10-20); Calcium,Total 9.1 mg/dL (7.6-11.0); Chloride 103 mmol/L (98-108); Creatinine, Serum 1.48 mg/dL (0.70-1.20); EST Glomerular Filtration Rate 35 (>60); Globulin 1.7 g/dL (2.2-4.2); Glucose 120 mg/dL (70-99); LDH 177 U/L (84-246); Potassium 4.7 mmol/L (3.3-5.1); Protein, Total 5.9 g/dL (5.9-8.4); Sodium Level 135 mmol/L (133-145); Total Bilirubin 1.08 mg/dL (0.00-1.30)
[2024-12-09 22:53] LABS: Pathologist Review May foll
== END | disposition home or self-care (01) ==
LOC: LAB 12:05
PROVIDERS: Internal Medicine Medical Oncology; PCP Internal Medicine; Referring Provider Internal Medicine Nephrology; Visit Provider Internal Medicine Nephrology
DX: N18.32 Chronic kidney disease, stage 3b (principal)
CPT/HCPCS: 36415; 80053; 81001; 83615; 84100; 85025

== ENCOUNTER → 2025-04-11 | Outpatient (CLI) | payer MEDICARE, OTHER, SELFPAY ==
--- NOTE | 2025-04-11 13:30 | CT_ITS ---
PROCEDURE: ABDOMEN/PELVIS W IV CONT ONLY 04/11/2025 REASON FOR EXAM: CLL/LIVER LESION TECHNIQUE: Procedure Code: [id number] Modality: CT Procedure: ABDOMEN/PELVIS W IV CONT ONLY Coronal and Sagittal reconstruction series were provided. CONTRAST: Isovue 370 VOLUME: 90 mL One or more dose reduction techniques were used (e.g., Automated exposure control, adjustment of the mA and/or kV according to patient size, use of iterative reconstruction technique. RADIATION DOSE SUMMARY: CTDlvol: 13.5 mGy DLP: 851.42 mGycm COMPARISON: Prior study dated November 09, 2024. FINDINGS: Lung bases: Lung bases are clear. Coronary artery calcification. Liver: Once again, there are multiple small hypodense lesion with central punctate increased density throughout both lobes of the liver. In general, they have decreased in size. No new nodules are seen. Gallbladder: Surgically absent. Spleen: Stable scattered tiny hypodensities in the spleen as well. Pancreas: Diffuse fatty atrophy. Adrenals: Unremarkable Kidneys: Stable 2 cm cyst in the lower pole of the right kidney. Stable 2.8 cm cyst in the mid posterior aspect of the left kidney. Bladder: Unremarkable Reproductive Organs: Normal uterine size and contour. Ovaries are unremarkable. Bowel: Colonic diverticulosis without diverticulitis. Appendix: The appendix is not identified. There is no inflammatory process identified in the right lower quadrant to suggest appendicitis. Lymph nodes: Unremarkable. Vasculature: Mild diffuse atherosclerotic calcifications are noted. Peritoneum / Retroperitoneum: Stable right inguinal hernia containing fat. Bones: Degenerative changes of the spine. CT/Abdomen/Pelvis W IV Cont ONLY IMPRESSION: Interval decrease in size of the previously seen multiple nodules in the liver. The remainder of the examination is unchanged. Reading Location: [place] [id number]
== END | disposition home or self-care (01) ==
LOC: CT 13:15
PROVIDERS: PCP Internal Medicine; Referring Provider Internal Medicine Medical Oncology; Visit Provider Internal Medicine Medical Oncology
DX: C91.10 Chronic lymphocytic leukemia of B-cell type not having achieved remission (principal); K76.9 Liver disease, unspecified
CPT/HCPCS: 74177; Q9967; A4216

== ENCOUNTER → 2025-07-04 | Outpatient (CLI) | payer MEDICARE, OTHER, SELFPAY ==
[2025-07-04 12:13] LABS: Hematocrit 36.6 % (37-47); Hemoglobin 11.7 g/dL (12.0-15.0); Immature Granulocytes Count 0.010 X10^3/uL (0.0-0.0); Mean Corp Hgb Conc 32.0 g/dL (32-36); Mean Corpuscular Volume 95.1 fL (81-99); Mean Platelet Vol. 10.1 fl (6.2-12.0); NRBC Flagged by Analyzer 0 % (0-5); Platelet Count 172 K/mm3 (150-450); RBC Distribution Width CV 14.8 % (11.6-14.6); RBC Distribution Width SD 51.2 fl (35.1-43.9); Red Blood Count 3.85 M/mm3 (4.2-5.4); White Blood Count 4.6 K/mm3 (4.4-11.0)
[2025-07-04 13:00] LABS: AST(SGOT) 28 U/L (<=31); Alanine Aminotransfer ALT/SGPT 23 U/L (<=34); Albumin, Serum 4.0 g/dL (3.4-4.8); Alkaline Phosphatase 135 U/L (35-104); Anion Gap 11 (5-15); BUN 28 mg/dL (4-19); BUN/Creat Ratio 23.1 RATIO (10-20); Calcium,Total 9.1 mg/dL (7.6-11.0); Carbon Dioxide 23.6 mmol/L (21.0-32.0); Chloride 106 mmol/L (98-108); Globulin 1.8 g/dL (2.2-4.2); Glucose 92 mg/dL (70-99); Potassium 4.3 mmol/L (3.3-5.1)
[2025-07-04 13:10] LABS: Uric Acid 4.9 mg/dL (2.6-6.0)
[2025-07-04 13:35] LABS: LDH 188 U/L (84-246)
== END | disposition home or self-care (01) ==
PROVIDERS: Internal Medicine Medical Oncology; PCP Internal Medicine; Referring Provider Internal Medicine Nephrology; Visit Provider Internal Medicine Nephrology
DX: C91.10 Chronic lymphocytic leukemia of B-cell type not having achieved remission (principal)
CPT/HCPCS: 36415; 80053; 83615; 84550; 85025